=== PATIENT | male | born 1955 ===

== ENCOUNTER → 2020-03-16 08:29 | Outpatient (BNVA) | payer OTHER, SELFPAY | PROVIDERS: PCP Nurse Practitioner Family; Referring Provider Nurse Practitioner Family; Visit Provider Urology | DX: Z76.89 Persons encountering health services in other specified circumstances (principal) ==

== ENCOUNTER 2020-05-27 10:01 | Outpatient (REF) | payer MEDICARE, SELFPAY ==
[2020-05-27 11:12] LABS: MANUAL DIFF FLAG NO
[2020-05-27 11:31] LABS: Basophils Absolute Auto 0.1 X10*3/uL (0.0-0.2); Basophils Percent Auto 0.4 % (0-2); Eosinophils Absolute Auto 0.4 X10*3/uL (0.0-0.4); Eosinophils Percent Auto 3.1 % (0-4); Hematocrit 50.4 % (42-52); Hemoglobin 16.9 g/dl (14.0-18.0); Imm Gran Abs Auto 0.05 X10*3/uL (0.00-0.03); Imm Gran Pct Auto 0.4 % (0.0-0.4); Lymphocytes Absolute Auto 3.6 X10*3/uL (1.2-4.9); Lymphocytes Percent Auto 27.9 % (20-40); Mean Corpuscular HGB Conc 33.5 g/dl (31.0-36.0); Mean Corpuscular Hemoglobin 30.6 pg (27.0-33.0); Mean Corpuscular Volume 91.1 fL (80-98); Mean Platelet Volume 9.9 fL (9.4-12.4); Monocytes Absolute Auto 0.9 X10*3/uL (0.1-1.2); Monocytes Percent Auto 7.2 % (2-11); Neutrophils Absolute Auto 7.7 X10*3/uL (2.0-8.3); Platelet Count 299 X10*3/uL (160-400); Red Blood Count 5.53 X10*6/uL (4.60-5.80); Red Cell Distribution Width 12.7 % (11.0-16.0); White Blood Count 12.7 X10*3/uL (4.8-10.8)
[2020-05-27 11:53] LABS: Alanine Aminotransferase 28 U/L (0-40); Albumin Level 4.5 g/dL (3.5-5.0); Alkaline Phosphatase 81 U/L (39-117); Anion Gap 15 (12-20); Aspartate Amino Transferase 16 U/L (5-37); Bilirubin Total 0.5 mg/dL (0.0-1.0); Blood Urea Nitrogen 13 mg/dL (9-16); Calcium 9.3 mg/dL (8.4-10.2); Carbon Dioxide 25 mmol/L (22-29); Chloride 103 mmol/L (96-108); Cholesterol 207 mg/dL; Estimated Glomerular Filt Rate > 60; Glucose Fasting 93 mg/dL (60-99); HDL Cholesterol 45 mg/dL; LDL Cholesterol Calculated 130 mg/dl; Potassium 4.4 mmol/l (3.3-5.1); Sodium 139 mmol/L (135-145); Total Protein 7.6 g/dL (6.5-8.0); Triglycerides 164 mg/dL
[2020-05-27 12:08] LABS: SARS COV2 IgG Negative (Negative)
[2020-05-27 12:15] LABS: TSH reflex Free T4 2.81 mIU/mL (0.32-4.0)
== END 2020-05-27 10:02 | disposition home or self-care (01) ==
LOC: HO.HMGCLDS 10:01
PROVIDERS: PCP Internal Medicine; Visit Provider Nurse Practitioner Family
DX: R42 Dizziness and giddiness (principal); E78.5 Hyperlipidemia, unspecified; Z01.84 Encounter for antibody response examination; Z12.5 Encounter for screening for malignant neoplasm of prostate
CPT/HCPCS: 36415; 80053; 80061; 84153; 84443; 85025; 86769

== ENCOUNTER 2020-06-02 08:46 | Outpatient (REF) | payer MEDICARE, SELFPAY ==
--- NOTE | 2020-06-02 08:49 | US_ITS ---
EXAMINATION: US SOFT TISSUE OF THE NECK CLINICAL INFORMATION: Cervicalgia. COMPARISON: None TECHNIQUE: Linear transducer grayscale and color Doppler examination of the bilateral submandibular anterior neck using a linear transducer. Comparison images on the left were performed.. FINDINGS: No solid or cystic mass or adenopathy is seen. The submandibular glands are normal appearing. US/US soft tiss head and/or neck IMPRESSION: Unremarkable exam.
== END 2020-06-02 08:47 | disposition home or self-care (01) ==
LOC: HO.HMGCX 08:46
PROVIDERS: PCP Nurse Practitioner Family; Visit Provider Nurse Practitioner Family
DX: M54.2 Cervicalgia (principal)
CPT/HCPCS: 76536

== ENCOUNTER 2020-06-21 11:03 | Outpatient (REF) | payer MEDICARE, SELFPAY ==
[2020-06-21 13:46] LABS: MANUAL DIFF FLAG NO
[2020-06-21 13:53] LABS: Basophils Absolute Auto 0.1 X10*3/uL (0.0-0.2); Basophils Percent Auto 0.6 % (0-2); Eosinophils Absolute Auto 0.7 X10*3/uL (0.0-0.4); Eosinophils Percent Auto 7.6 % (0-4); Hemoglobin 16.3 g/dl (14.0-18.0); Imm Gran Abs Auto 0.03 X10*3/uL (0.00-0.03); Imm Gran Pct Auto 0.3 % (0.0-0.4); Lymphocytes Absolute Auto 3.6 X10*3/uL (1.2-4.9); Lymphocytes Percent Auto 37.6 % (20-40); Mean Corpuscular HGB Conc 33.3 g/dl (31.0-36.0); Mean Corpuscular Hemoglobin 30.9 pg (27.0-33.0); Monocytes Absolute Auto 0.5 X10*3/uL (0.1-1.2); Monocytes Percent Auto 5.4 % (2-11); Neutrophils Absolute Auto 4.6 X10*3/uL (2.0-8.3); Neutrophils Percent Auto 48.5 % (45-73); Platelet Count 280 X10*3/uL (160-400); Red Blood Count 5.27 X10*6/uL (4.60-5.80); Red Cell Distribution Width 12.7 % (11.0-16.0); White Blood Count 9.4 X10*3/uL (4.8-10.8)
== END 2020-06-21 11:04 | disposition home or self-care (01) ==
LOC: HO.HMGCLDS 11:03
PROVIDERS: PCP Nurse Practitioner Family; Visit Provider Nurse Practitioner Family
DX: D72.829 Elevated white blood cell count, unspecified (principal)
CPT/HCPCS: 36415; 85025

== ENCOUNTER 2020-10-01 10:55 | Outpatient (REF) | payer MEDICARE, SELFPAY ==
[2020-10-01 14:06] LABS: MANUAL DIFF FLAG NO
[2020-10-01 14:17] LABS: Basophils Absolute Auto 0.1 X10*3/uL (0.0-0.2); Basophils Percent Auto 0.6 % (0-2); Eosinophils Absolute Auto 0.5 X10*3/uL (0.0-0.4); Eosinophils Percent Auto 5.5 % (0-4); Hematocrit 46.9 % (42-52); Hemoglobin 15.9 g/dl (14.0-18.0); Imm Gran Abs Auto 0.02 X10*3/uL (0.00-0.03); Imm Gran Pct Auto 0.2 % (0.0-0.4); Lymphocytes Absolute Auto 3.1 X10*3/uL (1.2-4.9); Lymphocytes Percent Auto 35.5 % (20-40); Mean Corpuscular HGB Conc 33.9 g/dl (31.0-36.0); Mean Corpuscular Hemoglobin 31.7 pg (27.0-33.0); Mean Corpuscular Volume 93.6 fL (80-98); Monocytes Absolute Auto 0.7 X10*3/uL (0.1-1.2); Monocytes Percent Auto 8.1 % (2-11); Neutrophils Absolute Auto 4.4 X10*3/uL (2.0-8.3); Neutrophils Percent Auto 50.1 % (45-73); Platelet Count 274 X10*3/uL (160-400); Red Blood Count 5.01 X10*6/uL (4.60-5.80); Red Cell Distribution Width 12.8 % (11.0-16.0); White Blood Count 8.8 X10*3/uL (4.8-10.8)
[2020-10-01 14:29] LABS: Anion Gap 14 (12-20); Blood Urea Nitrogen 12 mg/dL (9-16); Carbon Dioxide 23 mmol/L (22-29); Chloride 107 mmol/L (96-108); Estimated Glomerular Filt Rate > 60; Magnesium 2.2 mg/dL (1.6-2.6); Potassium 4.4 mmol/L (3.3-5.1); Sodium 140 mmol/L (135-145)
[2020-10-01 14:51] LABS: Vitamin D 25-OH Total 36.6 ng/mL (>30)
== END 2020-10-01 10:56 | disposition home or self-care (01) ==
LOC: HO.HMGCLDS 10:55
PROVIDERS: PCP Nurse Practitioner Family; Visit Provider Internal Medicine Hypertension Specialist
DX: D35.00 Benign neoplasm of unspecified adrenal gland (principal); N28.1 Cyst of kidney, acquired; E83.52 Hypercalcemia
CPT/HCPCS: 36415; 80051; 82306; 82310; 82565; 83735; 84520; 85025

== ENCOUNTER 2020-10-02 10:32 | Outpatient (REF) | payer MEDICARE, SELFPAY ==
[2020-10-02 11:25] LABS: Glucose Urine UA NEG (NEG); Leukocyte Esterase Urine NEG (NEG); Nitrite Urine NEG (NEG); Urine Blood NEG (NEG); Urine Ketones NEG (NEG); Urine Protein NEG (NEG-TRACE)
[2020-10-02 11:27] LABS: Appearance Urine CLEAR; Color Urine YELLOW
[2020-10-02 11:38] LABS: RBC Urine 0-2 /HPF (0); Squamous Epithelial Cell Urine TRACE /LPF; WBC Urine 0-2 /HPF (0-4)
== END 2020-10-02 10:33 | disposition home or self-care (01) ==
LOC: HO.HMGCLNP 10:32
PROVIDERS: PCP Nurse Practitioner Family; Visit Provider Internal Medicine Hypertension Specialist
DX: D35.00 Benign neoplasm of unspecified adrenal gland (principal); N28.1 Cyst of kidney, acquired; E83.52 Hypercalcemia
CPT/HCPCS: 81001; 87086

== ENCOUNTER 2020-10-05 07:29 | Outpatient (REF) | payer MEDICARE, SELFPAY ==
--- NOTE | ~2020-10-05 | CT_ITS ---
EXAMINATION: CT ABDOMEN AND PELVIS WITHOUT AND WITH CONTRAST CLINICAL INFORMATION: Followup left adrenal lesion. COMPARISON: Previous CT scans most recent August 2018 going back to September 2010 and previous MRI December 2010 TECHNIQUE: Multidetector volumetric imaging was performed of the abdomen and pelvis before and after the IV administration of 85 mL of Omnipaque 350 intravenous contrast. Sagittal and coronal reformatted images were obtained on the technologist's workstation. This CT examination was performed using dose optimization techniques as appropriate, variously including the following: *Automated exposure control *Adjustment of mA and/or kV according to patient size (this includes techniques or standardized protocols for targeted exams where dose is matched to indication/reason for exam; i.e. extremities or head) *Use of iterative reconstruction technique DLP: 1797 mGy-cm FINDINGS: LUNG BASES: The visualized lung bases are unremarkable. LIVER, GALLBLADDER, AND BILIARY TREE: The liver is normal in size, shape, and attenuation. There are multiple liver cysts. The largest measures 4.5 cm involving the medial segment of the left lobe and anterior segment of the right lobe. There is mild more peripheral intrahepatic biliary duct dilatation. The gallbladder is normal-appearing. PANCREAS: Unremarkable. SPLEEN: Unremarkable. ADRENAL GLANDS: There is a heterogeneous left adrenal lesion. It is primarily low in attenuation suggestive of fat with scattered areas of high attenuation. This also has small calcifications. This measures 2.8 x 3.4 cm in transverse and AP dimension and does not appear appreciably changed in size or appearance. Overall Hounsfield units precontrast measure 4. Immediate Hounsfield units postcontrast measure 37 and delayed Hounsfield units 15 minutes after injection measure 21. Relative washout measurement is 76%. This is characteristic of an adenoma. Enhancement washout is 49% which is not characteristic of an adenoma. The right adrenal gland is normal-appearing. KIDNEYS AND URETERS: There is a 1.5 cm cyst in the left kidney. The kidneys are otherwise unremarkable. BLADDER: Unremarkable. GASTROINTESTINAL TRACT: The small and large bowel are unremarkable. The appendix is unremarkable. ABDOMINAL WALL: There is a small umbilical hernia containing fat. LYMPH NODES: Normal. VASCULAR: There is evidence of atherosclerotic disease. There is mild dilatation of the abdominal aorta measuring maximum 2.8 cm. PELVIC VISCERA: The prostate gland is slightly enlarged measuring 4.6 x 6 cm in dimension. OSSEOUS STRUCTURES: There are degenerative changes of the spine. CT/CT abdomen pelvis wo/w con IMPRESSION: Stable appearance of the left adrenal lesion from previous exams. This is heterogeneous in attenuation, primarily fatty with high attenuation areas and small calcification. Liver and left renal cysts. Enlarged prostate gland.
[2020-10-05] MEDS: iohexoL 350 MG/ML 100 ML INFUS..BTL IV (10:07)
[2020-10-05] MEDS: Barium Sulfate Oral (Mocha) 450 ML ORAL.SUSP 900 ML PO (10:08)
== END 2020-10-05 07:30 | disposition home or self-care (01) ==
LOC: HO.CT 07:29
PROVIDERS: Visit Provider Psychiatry & Neurology Neurology
DX: D35.00 Benign neoplasm of unspecified adrenal gland (principal); Z86.018 Personal history of other benign neoplasm
CPT/HCPCS: 74178; Q9967

== ENCOUNTER 2020-10-27 15:34 | Emergency (ER) | payer MEDICARE, SELFPAY ==
--- NOTE | ~2020-10-27 | CT_ITS ---
EXAMINATION: CT ANGIOGRAM NECK CLINICAL INFORMATION: Intermittent visual loss left eye. COMPARISON: CT scan of the head obtained earlier 10/27/2020. TECHNIQUE: Test bolus series followed by intravenous administration 70 mL of Omnipaque 350. Helical imaging was performed in the axial plane from the mediastinum to the skull vertex. A post contrast CT scan of the head was also obtained. The degree of stenosis is based off NASCET criteria. The data was processed at the distribution engineering technologist workstation for generation of MIP images. Three-dimensional volume rendered reformatted images were also generated at an offline 3-D workstation. This CT examination was performed using dose optimization techniques as appropriate, variously including the following: *Automated exposure control *Adjustment of mA and/or kV according to patient size (this includes techniques or standardized protocols for targeted exams where dose is matched to indication/reason for exam; i.e. extremities or head) *Use of iterative reconstruction technique DLP: 1917.29 mGy-cm. FINDINGS: CT Head: There is no evidence of acute intracranial hemorrhage or territorial infarction. No abnormal mass-effect or midline shift is seen. Davis to white matter differentiation is well preserved. No extra-axial fluid collections are identified. There is no abnormal enhancement. The ventricles are normal in size. There is no abnormal attenuation within the brain parenchyma. The osseous structures and soft tissues are normal. The mastoid air cells are well-aerated. There is mucoperiosteal thickening in the bilateral ethmoid and left maxillary sinus. There is an unerupted carious maxillary molar tooth in the left posterior maxillary region. CTA Neck: There is a classic configuration of the arch of the aorta. There are mild atheromatous calcifications of the aortic arch and at the origin of the left common carotid artery. The great vessels of the neck are patent. The subclavian arteries are patent bilaterally. The common carotid arteries are patent bilaterally. There are mild atheromatous calcifications at the carotid bifurcations bilaterally, without significant stenosis. The cervical internal carotid arteries have uniform caliber. There are mild atheromatous calcifications at the origin of the right vertebral artery. Both vertebral arteries are widely patent throughout their cervical course extending intradurally. There is minimal atheromatous calcification of the V3 segment of the left vertebral artery. They are codominant. Nonvascular: There are emphysematous changes with bullae in the lungs bilaterally. The thyroid gland is normal in size. There is a surgical clip in the superior mediastinum on the right. There is no cervical lymphadenopathy. There are moderately severe spondylitic changes in the mid and lower cervical spine with degenerative endplate contour changes and sclerosis at C4-C5, C5-C6 and C6-C7. There is foraminal narrowing particularly on the left at these levels CTA Head: There is patient motion artifact in the superior head, limiting evaluation. There are mild atheromatous calcifications of the cavernous internal carotid arteries bilaterally. The carotid termini appear normal. The middle and anterior cerebral arteries bilaterally demonstrate normal caliber with no evidence of focal stenosis, aneurysm or vascular malformation. There is normal arborization of the middle cerebral artery branches. The anterior communicating artery is normal. In the posterior circulation, the vertebral arteries are codominant. The vertebral arteries intradurally have normal caliber. The basilar artery appears normal. The posterior cerebral arteries have normal caliber. The venous sinuses opacify normally. CT/CT angio head neck IMPRESSION: CT head and neck: 1. There are no acute bleeds or infarcts. 2. There are no masses or areas of abnormal enhancement. 3. There is no cervical lymphadenopathy. There are emphysematous changes in the lungs bilaterally. CTA neck: 1. There are mild atheromatous calcifications at multiple levels as described above, but there are no flow limiting stenoses in the neck. 2. Intracranially, there are no focal stenoses, aneurysms or vascular malformations.
--- NOTE | ~2020-10-27 | CT_ITS ---
EXAMINATION: CT HEAD WITHOUT CONTRAST CLINICAL INFORMATION: Visual loss in the left side COMPARISON: None TECHNIQUE: Contiguous axial imaging was performed from the skull base to vertex without intravenous administration of contrast. This CT examination was performed using dose optimization techniques as appropriate, variously including the following: *Automated exposure control *Adjustment of mA and/or kV according to patient size (this includes techniques or standardized protocols for targeted exams where dose is matched to indication/reason for exam; i.e. extremities or head) *Use of iterative reconstruction technique DLP: 967.71 mGy-cm FINDINGS: There is no evidence of acute intracranial hemorrhage or territorial infarction. No abnormal mass effect or midline shift is seen. Davis to white matter differentiation is well preserved. No extra-axial fluid collections are identified. The ventricles are normal in size. There is no abnormal attenuation within the brain parenchyma. The osseous structures and soft tissues are normal. The mastoid air cells and visualized portions of the paranasal sinuses are well aerated. CT/CT head/brain wo con IMPRESSION: No acute intracranial pathology.
[2020-10-27 15:36] VITALS: BP 126/90; PULSE 112; RESP 18; TEMP 36.9; O2SAT 97; BMI 31.4
[2020-10-27 17:16] VITALS: BP 126/75; PULSE 73; RESP 16; O2SAT 95
--- NOTE | 2020-10-27 17:17 | ED_ITS ---
HPI - General Adult General Chief complaint: General Medical Stated complaint: STROKE Time Seen by Provider: 10/27/20 16:58 Source: patient Mode of arrival: ambulatory Limitations: no limitations History of Present Illness HPI narrative: Patient comes to emergency room complaining of visualize for 45 seconds. Patient states at 09:35, patient was driving, suddenly he had visual loss in both lower quadrants of his visual field on the left eye. Patient states that he shook his head because he has history of floaters, then it went away. Patient went to see his digital program manager today, they did a funduscopic exam bilaterally, he was told that he has no acute findings. Patient was told to come to the emergency room for further evaluation. Patient states that his digital program manager was concerned that this may be a TIA, and was informed that this may be a precursor to a stroke. At this time, patient denies any symptoms. Related Data Home Medications Medication Instructions Recorded Confirmed flu vacc [id number](65yr up)-PF 240 ml IM 03/31/20 05/27/20 mcg/0.7 mL intramuscular syringe Previous Rx's Medication Instructions Recorded cetirizine 10 mg tablet 5 mg PO DAILY 30 Days #15 tab 03/31/20 amoxicillin 875 mg-potassium 1 tab PO BID 10 Days #20 tab 05/27/20 clavulanate 125 mg tablet halobetasol propionate 0.05 % 1 appl TOPICAL BID 30 Days #50 g 05/27/20 topical cream prednisone 50 mg tablet 50 mg PO DAILY 5 Days #5 tab 05/27/20 pravastatin 20 mg tablet 20 mg PO DAILY #90 tab 08/19/20 cetirizine 10 mg tablet 10 mg PO DAILY #30 tab 10/13/20 prednisone 20 mg tablet 20 mg PO DAILY 9 Days #18 tab 10/13/20 Allergies Allergy/AdvReac Type Severity Reaction Status Date / Time Sulfa (Sulfonamide Allergy Intermediate rash Verified 10/27/20 15:35 Antibiotics) Review of Systems Review of Systems: Constitutional : No Weight loss, No Fever, No Chills, No N ight Sweats, No Fatigue, No Malaise ENT/Mouth : No Hearing loss, No Ear Pain, No Nasal Congestion, No Sinus Pain, No Hoarseness, No sore throat, No Rhinorrhea, No Swallowing Difficulty Eyes: No Eye Pain, No Swelling, No Redness, No Foreign Body, No Discharge, 1 episode of partial vision loss in the lower quadrants of the left eye, resolved within 45 seconds Cardiovascular : No Chest Pain, No SOB, No Dyspnea on Exertion, No Orthopnea, No Edema, No Palpitations Respiratory : No Cough, No Sputum, No Wheezing, No Smoke Exposure, No Dyspnea Gastrointestinal : No Nausea, No Vomiting, No Diarrhea, No Constipation, No abdominal Pain, No Hematochezia, No Melena Genitourinary : no irregular bleeding, No Dysuria, No Urinary Frequency, No Hematuria, No Urinary Incontinence, No Urgency, No Flank Pain, No Urinary Flow Changes, No Hesitancy Musculoskeletal : No joint pain, No Myalgias, No Joint Swelling Skin : No Skin Lesions, No rash Neuro : No Weakness, No Numbness, No Paresthesias, No Loss of Consciousness, No Dizziness, No Headache Psych : No Anxiety/Panic, No Depression, No SI/HI/AH/VH, No Social Issues, Heme/Lymph: No Bruising, No Bleeding,No Lymphadenopathy Endocrine : No Polyuria, No Polydipsia, No Temperature Intolerance [facility] Past Medical History Medical History High cholesterol Surgical History S/P thyroid surgery Social History Social History Alcohol intake: current Alcohol intake frequency: a few times a week Patient Tobacco Use Status: Tobacco use Unknown Use of substances other than those prescribed or required for medical reasons: No Advance Directives: No Advance Directives Information Provided: Yes Physical Exam Vital Signs: Vital Signs: Last Vital Signs Temp 98.4 F 10/27/20 15:36 Pulse 73 10/27/20 17:16 Resp 16 10/27/20 17:16 BP 126/75 10/27/20 17:16 Pulse Ox 95 10/27/20 17:16 Body Mass Index 31.4 Appearance: Alert. Oriented X3. No acute distress. Eyes: Pupils equal, round and reactive to light. Bilateral eyes are still d ilated from the drops ENT: Pharynx normal. Neck: Normal inspection. Neck supple. No lymph nodes noted. No crepitus CVS: Normal heart rate and rhythm. Pulses normal. Normal S1 and S2 Respiratory: No respiratory distress. Breath sounds normal. No Wheezing. No rales Abdomen: Soft and nontender. No rigidity. No distention. good BS x4 Skin: Skin warm and dry. Normal skin color. Normal skin turgor. Extremities: No lower extremity edema. No Lacerations. No Rash Neuro: Oriented X 3. No motor deficit. No sensory deficit. Moving all extermities. No slurred speech. Course Course Course Narrative: As I went to the patient's room to discuss the CT and CTA with the patient and to discuss admission for an MRI in the morning, I found out that the patient had eloped. Patient did not inform his nurse or charge nurse about leaving. When the patient arrived, patient was well aware that he was sent here for TIA rule out, as it is a precursor for a stroke. Medical Decision Making Lab Data Result diagrams: 10/27/20 17:33 10/27/20 17:32 Labs: Lab Results 10/27/20 10/27/20 10/27/20 Range/Units 17:32 17:32 17:33 WBC 11.0 H (4.8-10.8) X10*3/uL RBC 4.79 (4.60-5.80) X10*6/uL Hgb 15.3 (14.0-18.0) g/dl Hct 44.2 (42-52) % MCV 92.3 (80-98) fL MCH 31.9 (27.0-33.0) pg MCHC 34.6 (31.0-36.0) g/dl RDW 12.3 (11.0-16.0) % Plt Count 263 (160-400) X10*3/uL MPV 9.4 (9.4-12.4) fL Immature Gran % (Auto) 0.4 (0.0-0.4) % Neut % (Auto) 57.3 (45-73) % Lymph % (Auto) 29.0 (20-40) % [place] % (Auto) 9.1 (2-11) % Eos % (Auto) 3.8 (0-4) % Baso % (Auto) 0.4 (0-2) % Lymph # (Auto) 3.2 (1.2-4.9) X10*3/uL [place] # (Auto) 1.0 (0.1-1.2) X10*3/uL Eos # (Auto) 0.4 (0.0-0.4) X10*3/uL Baso # (Auto) 0.0 (0.0-0.2) X10*3/uL Abs Immat Gran (auto) 0.04 H (0.00-0.03) X10*3/uL Absolute Neuts (auto) 6.3 (2.0-8.3) X10*3/uL Absolute Nucleated RBC 0.000 (0.0-0.012) X10*3/uL Nucleated RBC % (auto) 0.0 (0.0-0.2) /100WBC ESR 31 H (0-15) MM/HR Sodium 138 (135-145) mmol/L Potassium 4.5 (3.3-5.1) mmol/L Chloride 106 (96-108) mmol/L Carbon Dioxide 22 (22-29) mmol/L Anion Gap 15 (12-20) BUN 14 (9-16) mg/dL Creatinine 0.75 (0.5-1.4) mg/dL Estim Creat Clear Calc 116.3 Estimated GFR > 60 Random Glucose 80 (60-115) mg/dL Calcium 9.1 (8.4-10.2) mg/dL Total Bilirubin 0.5 (0.0-1.0) mg/dL Direct Bilirubin < 0.2 (0.0-0.5) mg/dL AST 22 (5-37) U/L ALT 21 (0-40) U/L Alkaline Phosphatase 77 (39-117) U/L C-Reactive Protein 1.24 H (< or = 0.50) mg/dL Total Protein 7.1 (6.5-8.0) g/dL Albumin 4.1 (3.5-5.0) g/dL Imaging Data Head and neck CTA: Radiologist's impression: COMPARISON: CT scan of the head obtained earlier 10/27/2020. TECHNIQUE: Test bolus series followed by intravenous administration 70 mL of Omnipaque 350. Helical imaging was performed in the axial plane from the mediastinum to the skull vertex. A post contrast CT scan of the head was also obtained. The degree of stenosis is based off NASCET criteria. The data was processed at the electrical design technologist workstation for generation of MIP images. Three-dimensional volume rendered reformatted images were also generated at an offline 3-D workstation. This CT examination was performed using dose optimization techniques as appropriate, variously including the following: *Automated exposure control *Adjustment of mA and/or kV according to patient size (this includes techniques or standardized protocols for targeted exams where dose is matched to indication/reason for exam; i.e. extremities or head) *Use of iterative reconstruction technique DLP: 1917.29 mGy-cm. FINDINGS: CT Head: There is no evidence of acute intracranial hemorrhage or territorial infarction. No abnormal mass-effect or midline shift is seen. Davis to white matter differentiation is well preserved. No extra-axial fluid collections are identified. There is no abnormal enhancement. The ventricles are normal in size. There is no abnormal attenuation within the brain parenchyma. The osseous structures and soft tissues are normal. The mastoid air cells are well-aerated. There is mucoperiosteal thickening in the bilateral ethmoid and left maxillary sinus. There is an unerupted carious maxillary molar tooth in the left posterior maxillary region. CTA Neck: There is a classic configuration of the arch of the aorta. There are mild atheromatous calcifications of the aortic arch and at the origin of the left common carotid artery. The great vessels of the neck are patent. The subclavian arteries are patent bilaterally. The common carotid arteries are patent bilaterally. There are mild atheromatous calcifications at the carotid bifurcations bilaterally, without significant stenosis. The cervical internal carotid arteries have uniform caliber. There are mild atheromatous calcifications at the origin of the right vertebral artery. Both vertebral arteries are widely patent throughout their cervical course extending intradurally. There is minimal atheromatous calcification of the V3 segment of the left vertebral artery. They are codominant. Nonvascular: There are emphysematous changes with bullae in the lungs bilaterally. The thyroid gland is normal in size. There is a surgical clip in the superior mediastinum on the right. There is no cervical lymphadenopathy. There are moderately severe spondylitic changes in the mid and lower cervical spine with degenerative endplate contour changes and sclerosis at C4-C5, C5-C6 and C6-C7. There is foraminal narrowing particularly on the left at these levels CTA Head: There is patient motion artifact in the superior head, limiting evaluation. There are mild atheromatous calcifications of the cavernous internal carotid arteries bilaterally. The carotid termini appear normal. The middle and anterior cerebral arteries bilaterally demonstrate normal caliber with no evidence of focal stenosis, aneurysm or vascular malformation. There is normal arborization of the middle cerebral artery branches. The anterior communicating artery is normal. In the posterior circulation, the vertebral arteries are codominant. The vertebral arteries intradurally have normal caliber. The basilar artery appears normal. The posterior cerebral arteries have normal caliber. The venous sinuses opacify normally. CT/CT angio head neck IMPRESSION: CT head and neck: 1. There are no acute bleeds or infarcts. 2. There are no masses or areas of abnormal enhancement. 3. There is no cervical lymphadenopathy. There are emphysematous changes in the lungs bilaterally. CTA neck: 1. There are mild atheromatous calcifications at multiple levels as described above, but there are no flow limiting stenoses in the neck. 2. Intracranially, there are no focal stenoses, aneurysms or vascular malformations. ECG Data Attestation: I personally reviewed and interpreted this ECG as follows: (Normal sinus rhythm, heart rate 68, no ST segment depression or elevation, nonspecific T-wave inversion in lead 3, QTC 412) Discharge Plan Discharge Clinical Impression: AF (amaurosis fugax), Brain TIA Patient Disposition: Elopement Prescriptions: No Action pravastatin 20 mg tablet 20 mg PO DAILY Qty: 90 RF: 1 Fluzone HighDose Quad 20-21 PF 240 mcg/0.7 mL syringe IM RF: 0 cetirizine [Zyrtec] 10 mg tablet 5 mg PO DAILY 30 Days Qty: 15 RF: 0 prednisone 20 mg tablet 20 mg PO DAILY 9 Days Qty: 18 RF: 0 cetirizine [Allergy Relief (cetirizine)] 10 mg tablet 10 mg PO DAILY Qty: 30 RF: 0 prednisone 50 mg tablet 50 mg PO DAILY 5 Days Qty: 5 RF: 0 amoxicillin-pot clavulanate [Augmentin] 875-125 mg tablet 1 tab PO BID 10 Days Qty: 20 RF: 0 halobetasol propionate 0.05 % cream 1 appl topical BID 30 Days Qty: 50 RF: 2 Interventions: ED Discharge Assessment Last Done: 10/27/20 20:56 Discharge Date/Time: 10/27/20 21:00
--- NOTE | 2020-10-27 17:20 | ECG_ITS ---
Test Reason : TIA Blood Pressure : / mmHG Vent. Rate : 068 BPM Atrial Rate : 068 BPM P-R Int : 182 ms QRS Dur : 088 ms QT Int : 388 ms P-R-T Axes : 038 018 024 degrees QTc Int : 412 ms Normal sinus rhythm Cannot rule out inferior infarct Abnormal ECG No previous ECGs available Referred By: Angelique Young Electronically Signed By:Harjeet Bloom
[2020-10-27 17:40] LABS: MANUAL DIFF FLAG NO
[2020-10-27 17:41] LABS: Basophils Percent Auto 0.4 % (0-2); Eosinophils Absolute Auto 0.4 X10*3/uL (0.0-0.4); Eosinophils Percent Auto 3.8 % (0-4); Hematocrit 44.2 % (42-52); Hemoglobin 15.3 g/dl (14.0-18.0); Imm Gran Abs Auto 0.04 X10*3/uL (0.00-0.03); Imm Gran Pct Auto 0.4 % (0.0-0.4); Lymphocytes Absolute Auto 3.2 X10*3/uL (1.2-4.9); Mean Corpuscular HGB Conc 34.6 g/dl (31.0-36.0); Mean Corpuscular Hemoglobin 31.9 pg (27.0-33.0); Mean Corpuscular Volume 92.3 fL (80-98); Mean Platelet Volume 9.4 fL (9.4-12.4); Monocytes Percent Auto 9.1 % (2-11); Neutrophils Absolute Auto 6.3 X10*3/uL (2.0-8.3); Neutrophils Percent Auto 57.3 % (45-73); Platelet Count 263 X10*3/uL (160-400); Red Blood Count 4.79 X10*6/uL (4.60-5.80); Red Cell Distribution Width 12.3 % (11.0-16.0)
[2020-10-27 18:17] LABS: Alanine Aminotransferase 21 U/L (0-40); Albumin Level 4.1 g/dL (3.5-5.0); Alkaline Phosphatase 77 U/L (39-117); Anion Gap 15 (12-20); Aspartate Amino Transferase 22 U/L (5-37); Bilirubin Direct < 0.2 mg/dL (0.0-0.5); Bilirubin Total 0.5 mg/dL (0.0-1.0); Blood Urea Nitrogen 14 mg/dL (9-16); C Reactive Protein 1.24 mg/dL (< or = 0.50); Calcium 9.1 mg/dL (8.4-10.2); Carbon Dioxide 22 mmol/L (22-29); Chloride 106 mmol/L (96-108); Creatinine Clr Calc Pharmacy 116.3; Estimated Glomerular Filt Rate > 60; Glucose Random 80 mg/dL (60-115); Potassium 4.5 mmol/L (3.3-5.1); Sodium 138 mmol/L (135-145); Total Protein 7.1 g/dL (6.5-8.0)
[2020-10-27 18:44] LABS: Erythrocyte Sedimentation Rate 31 MM/HR (0-15)
[2020-10-27] MEDS: iohexoL 350 MG/ML 100 ML INFUS..BTL IV (19:30)
--- NOTE | 2020-10-27 20:53 | PC.NURSE ---
WHEN THIS NURSE RETURNS TO ROOM #15, PT IS NOT IN ROOM AND GOWN AND IV LEFT ON STRETCHER WITH NO BELONGINGS. DR. LAINEZ'S AWARE OF PT LEAVING ED.
== END 2020-10-27 21:00 | disposition left against medical advice (07) ==
PROVIDERS: Emergency Provider Emergency Medicine; PCP Nurse Practitioner Family
DX: G45.9 Transient cerebral ischemic attack, unspecified (principal); G45.3 Amaurosis fugax
CPT/HCPCS: 36415; 70450; 70496; 70498; 80048; 80076; 85025; 85652; 86140; 93005; 99284; Q9967

== ENCOUNTER → 2021-01-11 09:50 | Outpatient (BNVA) | payer SELFPAY | PROVIDERS: PCP Nurse Practitioner Family; Visit Provider Physician Assistant | DX: Z02.79 Encounter for issue of other medical certificate (principal) ==

== ENCOUNTER → 2021-01-14 09:25 | Outpatient (REF) | payer MEDICARE, SELFPAY ==
--- NOTE | 2021-01-14 09:29 | CA_ITS ---
Transthoracic Echocardiogram Patient (Last, First, Middle): Leif Kramer A Gender: Male Date of : 1955 Age: 66 Procedure Date: 01/14/2021 Procedure Type: Transthoracic Echocardiogram Location: OP Height: 180.34 cm Weight: 103.42 kg BSA: 2.23 m2 Heart Rate: bpm BP: 128 / 80 mmHg Senior Auditor: Referring MD: Everardo Rasmussen [facility] Symptoms: R01.1 - Cardiac murmur, unspecified Study Quality: Fair ECG Rhythm: Sinus Conclusions: - The left ventricular systolic function is normal. The visually estimated ejection fraction is between 60-65%. - Evidence suggests grade I (mild) diastolic dysfunction. - There is mild calcification of the aortic valve. Findings Left Ventricle Normal left ventricular cavity size. There is mildly increased left ventricular wall thickness. The left ventricular systolic function is normal. The visually estimated ejection fraction is between 60-65%. There is no evidence of regional wall motion abnormalities. E/E prime ratio is between 8 and 15 consistent with indeterminate filling pressures. Evidence suggests grade I (mild) diastolic dysfunction. Right Ventricle Mildly increased right ventricular cavity size. There is normal right ventricular systolic function. Atria Both atria are normal in size. Aortic Valve There is a normal trileaflet aortic valve. There is mild calcification of the aortic valve. There is no aortic valve stenosis. There is no aortic valve regurgitation. Mitral Valve The mitral valve appears normal. There is trace mitral valve regurgitation. There is no mitral valve stenosis. Pulmonic Valve The pulmonic valve was not well visualized. Tricuspid Valve There is trace tricuspid valve regurgitation. The pulmonary artery systolic pressure is normal. Great Vessels Top normal ascending aortic size at 3.7 cm; Sinus of Valsalva measures 4.2 cm. Venous The inferior vena cava is normal in size and collapses greater than 50% with inspiration. Pericardium/Pleural There is no evidence of pericardial effusion. Prior Study Comparison Changes noted compared to prior study dated: 08/26/2018. See comments on diastolic function and aortic valve calcification. Measurements 2D Linear Measurements IVSd: 1.27 0.6-0.9/0.6-1.0 cm LVIDd: 4.36 3.9-5.3/4.2-5.9 cm LVIDd Index: 1.96 2.4-3.2/2.2-3.1 cm/m2 LVIDs: 2.83 2.0-3.6 cm LVPWd: 1.22 0.7-1.1 cm Ao Root: 4.20 2.1-3.5 cm LA Diam: 3.50 2.7-3.8/3.0-4.0 cm LAIDs Index: 1.57 1.5-2.3 cm/m2 LV Mass: 248.08 67-162/88-224 g LV Mass Index: 111.25 43-95/49-115 g/m2 LVOT Diam: 2.30 3.0+(-)1.3 cm Mitral Valve MV Pk E: 0.51 MV PK A: 0.62 MV Decel Time: 287.00 E/A: 0.80 E'Lateral: 6.85 E'Medial: 4.46 E/E' Med: 11.30 E/E' Lat: 7.40 PHT: 84.00 MVA PHT: 2.62 Decel Burnet: 1.76 Aortic Valve AoV Pk Sanjeev: 1.55 AoV Mn Sanjeev: 1.06 AoV VTI: 0.26 AoV Pk Grad: 10.00 Aov Mn Grad: 5.00 ABHISHEK Cont.VTI: 2.76 LVOT LVOT Pk Sanjeev: 0.88 LVOT Mn Sanjeev: 0.64 LVOT VTI: 0.17 LVOT Pk Grad: 3.00 LVOT Mn Grad: 2.00 LVOT Diam: 2.30 LVOT Area: 4.15 Diastolic Function MV Pk E: 0.51 MV Pk A: 0.62 E/A: 0.80 E'Medial: 4.46 E/E' Med: 11.30 E' Laterial: 6.85 E/E' Lat: 7.40 Right Ventricle TAPSE (mm): 29.00 TVS' Sanjeev: 13.00 Tricuspid Valve TR Pk Sanjeev: 2.04 TR Pk Grad: 17.00 RA Press: 3.00 RVSP: 20.00 Great Vessels Aorta Ao Root-2D: 4.20 2.0-3.7 cm Ao Asc: 3.70 2.1-3.4 cm Pulmonary Valve PV Pk Sanjeev: 0.91 Peak PV Grad: 3.00 Updated in Other Vendor System with Status of Final Nawaf Krishnamurthy MD electronically signed on 01/16/2021 12:40:59 PM with status of Final
== END ==
LOC: HO.CARD 09:25
PROVIDERS: PCP Nurse Practitioner Family; Visit Provider Nurse Practitioner Family
DX: R01.1 Cardiac murmur, unspecified (principal)
CPT/HCPCS: 93306

== ENCOUNTER → 2021-03-17 09:23 | Outpatient (BNVA) | payer MEDICARE, SELFPAY | PROVIDERS: Visit Provider Urology | DX: Z13.89 Encounter for screening for other disorder (principal) | CPT/HCPCS: Q3014 ==

== ENCOUNTER 2021-06-06 06:23 | Outpatient (REF) | payer MEDICARE, SELFPAY ==
[2021-06-06 11:38] LABS: Appearance Urine CLEAR; Color Urine YELLOW; Glucose Urine UA NEG (NEG); Leukocyte Esterase Urine NEG (NEG); Nitrite Urine NEG (NEG); PH 5.5 (5.0-8.0); Urine Blood NEG (NEG); Urine Ketones NEG (NEG); Urine Protein NEG (NEG-TRACE)
[2021-06-06 12:16] LABS: Alanine Aminotransferase 21 U/L (0-40); Albumin Level 4.2 g/dL (3.5-5.0); Alkaline Phosphatase 76 U/L (39-117); Anion Gap 12 (12-20); Aspartate Amino Transferase 16 U/L (5-37); Bilirubin Total 0.5 mg/dL (0.0-1.0); Blood Urea Nitrogen 11 mg/dL (9-16); Calcium 8.8 mg/dL (8.4-10.2); Carbon Dioxide 25 mmol/L (22-29); Chloride 108 mmol/L (96-108); Cholesterol 183 mg/dL; Estimated Glomerular Filt Rate > 60; Glucose Fasting 95 mg/dL (60-99); HDL Cholesterol 41 mg/dL; LDL Cholesterol Calculated 114 mg/dl; Potassium 4.3 mmol/L (3.3-5.1); Sodium 141 mmol/L (135-145); Total Protein 7.1 g/dL (6.5-8.0); Triglycerides 144 mg/dL
[2021-06-06 12:21] LABS: TSH reflex Free T4 3.17 uIU/mL (0.32-4.0)
[2021-06-06 12:22] LABS: Prostate Specific Antigen Scr 4.41 ng/mL (<0.05-4.0)
== END 2021-06-06 06:24 | disposition home or self-care (01) ==
LOC: HO.HMGCLDS 06:23
PROVIDERS: Visit Provider Nurse Practitioner Family
DX: Z12.5 Encounter for screening for malignant neoplasm of prostate (principal); E78.5 Hyperlipidemia, unspecified
CPT/HCPCS: 36415; 80053; 80061; 81003; 84153; 84443

== ENCOUNTER 2021-06-06 08:28 | Outpatient (REF) | payer MEDICARE, SELFPAY | END 2021-06-06 08:29 | disposition home or self-care (01) | LOC: HO.HMGCLNP 08:28 | PROVIDERS: PCP Nurse Practitioner Family; Visit Provider Nurse Practitioner Family | DX: Z13.89 Encounter for screening for other disorder (principal) ==

== ENCOUNTER 2021-07-29 13:27 | Outpatient (REF) | payer MEDICARE, SELFPAY ==
--- NOTE | ~2021-07-29 | CT_ITS ---
EXAMINATION: CT CHEST SCREENING CLINICAL INFORMATION: Nicotine dependence. COMPARISON: None TECHNIQUE: Multidetector volumetric CT imaging of the chest is performed without contrast using low dose technique. Additional 2D coronal and sagittal reformatted images and axial 3D maximum intensity projection (MIP) images are generated on the CT workstation. This CT examination was performed using dose optimization techniques as appropriate, variously including the following: *Automated exposure control *Adjustment of mA and/or kV according to patient size (this includes techniques or standardized protocols for targeted exams where dose is matched to indication/reason for exam; i.e. extremities or head) *Use of iterative reconstruction technique DLP: 319 mGy-cm FINDINGS: LUNGS: The lungs are well expanded and clear of acute pneumonic process. There are no pulmonary nodules, mass or consolidation. There are minimal atelectatic changes in the right middle lobe and left lower lobe. MEDIASTINUM: Both thyroid lobes are symmetric and normal. The central trachea and the bronchi are widely patent. The heart size and the great vessels are normal caliber. There are small shotty lymph nodes in the aortic window and para-aortic space. There is no pericardial effusion. There are coronary artery calcifications in the pericardium. PLEURA: There is no pleural effusion. No pleural mass or thickening. AXILLA: No abnormal lymph nodes in the axilla. The chest wall is unremarkable. UPPER ABDOMEN: The liver is homogeneous in density and normal size. There is 4.4 cm hypodensity right hepatic lobe. No additional lesion seen. There is a 3 cm lesion left adrenal gland measuring 20 Hounsfield units. Likely adenoma. OSSEOUS STRUCTURES: There is moderate spondylosis dorsal and lumbar spine. No lytic or sclerotic process seen. CT/CT lung screening IMPRESSION: Minimal atelectatic changes. No pulmonary nodule or mass. Reactive mediastinal lymph nodes largest measuring 7 mm in short axis. Most likely left adrenal adenoma. Right hepatic lobe cyst. ASSESSMENT: Lung-RADS category 2: Benign. S CATEGORY: Left adrenal adenoma likely. Suggest adrenal protocol. Right hepatic cyst. RECOMMENDATION: Low-dose annual CT chest.
== END 2021-07-29 13:28 | disposition home or self-care (01) ==
LOC: HO.CT 13:27
PROVIDERS: PCP Nurse Practitioner Family; Visit Provider Physician Assistant Medical
DX: Z12.2 Encounter for screening for malignant neoplasm of respiratory organs (principal); F17.210 Nicotine dependence, cigarettes, uncomplicated
CPT/HCPCS: 71271; G0296

== ENCOUNTER → 2021-08-23 08:24 | Outpatient (BNVA) | payer MEDICARE, SELFPAY | PROVIDERS: PCP Nurse Practitioner Family; Visit Provider Urology | DX: N32.0 Bladder-neck obstruction (principal) | CPT/HCPCS: Q3014 ==

== ENCOUNTER 2021-12-19 12:03 | Outpatient (REF) | payer MEDICARE, SELFPAY ==
[2021-12-19 14:33] LABS: PSA,Total (Free>4and<10) 5.45 ng/mL (0.00-4.00)
[2021-12-21 09:33] LABS: Free Prostate Spec Ag 1.1 ng/mL; Percent Free Prostate Spec Ag 21 % (calc) (>25); Prostate Specific Ag Total 5.3 ng/mL (< OR = 4.0)
== END 2021-12-19 12:04 | disposition home or self-care (01) ==
LOC: HO.HMGCLDS 12:03
PROVIDERS: Visit Provider Urology
DX: N40.1 Benign prostatic hyperplasia with lower urinary tract symptoms (principal); N13.8 Other obstructive and reflux uropathy; Z12.5 Encounter for screening for malignant neoplasm of prostate
CPT/HCPCS: 36415; 84153; 84154

== ENCOUNTER → 2021-12-27 11:01 | Outpatient (BNVA) | payer MEDICARE, SELFPAY | PROVIDERS: PCP Nurse Practitioner Family; Visit Provider Urology | DX: R97.20 Elevated prostate specific antigen [PSA] (principal); N32.0 Bladder-neck obstruction | CPT/HCPCS: Q3014 ==

== ENCOUNTER 2022-02-06 06:25 | Outpatient (REF) | payer MEDICARE, SELFPAY ==
[2022-02-06 11:16] LABS: MANUAL DIFF FLAG NO
[2022-02-06 11:35] LABS: Basophils Absolute Auto 0.1 X10*3/uL (0.0-0.2); Eosinophils Absolute Auto 0.5 X10*3/uL (0.0-0.4); Eosinophils Percent Auto 7.9 % (0-4); Hematocrit 46.7 % (42.0-52.0); Hemoglobin 15.8 g/dl (14.0-18.0); Imm Gran Abs Auto 0.02 X10*3/uL (0.00-0.03); Imm Gran Pct Auto 0.3 % (0.0-0.4); Lymphocytes Absolute Auto 2.8 X10*3/uL (1.2-4.9); Lymphocytes Percent Auto 40.3 % (20-40); Mean Corpuscular HGB Conc 33.8 g/dl (31.0-36.0); Mean Corpuscular Hemoglobin 31.2 pg (27.0-33.0); Mean Corpuscular Volume 92.3 fL (80.0-98.0); Mean Platelet Volume 9.8 fL (9.4-12.4); Monocytes Absolute Auto 0.6 X10*3/uL (0.1-1.2); Monocytes Percent Auto 8.6 % (2-11); Neutrophils Absolute Auto 2.9 x10*3/uL (2.0-8.3); Neutrophils Percent Auto 41.9 % (45-73); Platelet Count 251 X10*3/uL (160-400); Red Blood Count 5.06 X10*6/uL (4.60-5.80); Red Cell Distribution Width 12.9 % (11.0-16.0); White Blood Count 6.8 X10*3/uL (4.8-10.8)
[2022-02-06 11:49] LABS: Alanine Aminotransferase 18 U/L (0-40); Alkaline Phosphatase 70 U/L (39-117); Anion Gap 14 (12-20); Aspartate Amino Transferase 14 U/L (5-37); Bilirubin Total 0.3 mg/dL (0.0-1.0); Blood Urea Nitrogen 11 mg/dL (9-16); Calcium 8.4 mg/dL (8.4-10.2); Carbon Dioxide 22 mmol/L (22-29); Chloride 106 mmol/L (96-108); Cholesterol 188 mg/dL; Estimated Glomerular Filt Rate > 60; Glucose Fasting 101 mg/dL (60-99); HDL Cholesterol 43 mg/dL; LDL Cholesterol Calculated 120 mg/dl; Potassium 4.4 mmol/L (3.3-5.1); Sodium 138 mmol/L (135-145); Total Protein 6.6 g/dL (6.5-8.0); Triglycerides 128 mg/dL
[2022-02-06 12:13] LABS: TSH reflex Free T4 2.82 uIU/mL (0.32-4.0)
== END 2022-02-06 06:26 | disposition home or self-care (01) ==
LOC: HO.HMGCLDS 06:25
PROVIDERS: PCP Nurse Practitioner Family; Visit Provider Nurse Practitioner Family
DX: K40.90 Unilateral inguinal hernia, without obstruction or gangrene, not specified as recurrent (principal)
CPT/HCPCS: 36415; 80053; 80061; 84443; 85025

== ENCOUNTER 2022-02-07 11:40 | Outpatient (REF) | payer MEDICARE, SELFPAY ==
[2022-02-07 11:55] VITALS: BP 114/69; PULSE 96; RESP 16; TEMP 36.9; O2SAT 97; BMI 30.8
--- NOTE | 2022-02-07 12:56 | W.PM.OPN ---
Operative Note Operative Note Date of Service: 02/07/22 Narrative: Preoperative diagnosis: Elevated PSA Postoperative diagnosis: Elevated PSA Procedure: 1. transrectal ultrasound measurement of prostate 2. transrectal ultrasound-guided pudendal nerve block 3. transrectal ultrasound-guided prostate biopsy 12 core Surgeon: Dr. Fernando Barlow Anesthetic: Local Indications for procedure: Elevated PSA 5.5 Procedure: After informed consent was verified, the patient was brought into the procedure area and lay left-hand side down on the table. Patient identity confirmed. Perioperative antibiotics confirmed. Safety pause time out performed. JOE performed to dilate rectal sphincter - no palpable pathology Iodine 10cc with Gel was placed per rectum Ultrasound probe was placed per rectum The prostate was measured in 3 dimensions Total volume equals 30 gm No cystic structures were noted - calcifications were noted at the surgical margin The prostate was otherwise heterogenous in nature - small anterior right cyst An ultrasound-guided pudendal nerve block was performed using 10 cc of 1% lidocaine. 8 cc was placed at the base and 2 cc of the apex. A 12 core biopsy was performed with 6 cores each side. Two cores were taken at the apex, mid and base. Cores were spaced between lateral and medial. He tolerated the procedure well. Was able to ambulate to bathroom after 5 minutes. Printed instructions regarding antibiotic use and common side effects such as low-grade temperature, potential infection and bleeding were given Pathology: 12 core prostate biopsy.
[2022-02-07 13:05] VITALS: BP 111/72; PULSE 92; RESP 16; O2SAT 97
== END 2022-02-07 11:41 | disposition home or self-care (01) ==
LOC: HO.MS 11:40
PROVIDERS: Visit Provider Urology
PROC: (CPT 55700; principal; 2022-02-07 12:00)
DX: C61 Malignant neoplasm of prostate (principal); R97.20 Elevated prostate specific antigen [PSA]
CPT/HCPCS: 55700; 76942; 88305; 88344

== ENCOUNTER → 2022-02-28 11:29 | Outpatient (BNVA) | payer MEDICARE, SELFPAY | PROVIDERS: Visit Provider Urology | DX: C61 Malignant neoplasm of prostate (principal) | CPT/HCPCS: Q3014 ==

== ENCOUNTER 2022-03-24 10:42 | Outpatient (REF) | payer MEDICARE, SELFPAY ==
--- NOTE | ~2022-03-24 | US_ITS ---
EXAMINATION: US LEFT, LIMITED/FOLLOW UP CLINICAL INFORMATION: Rule out left inguinal hernia, history of prostate cancer. COMPARISON: CT abdomen and pelvis 10/05/2020. TECHNIQUE: Ultrasound images soft tissues left inguinal region. FINDINGS: Targeted ultrasound images were obtained by the continuous mining machine operator of the area of concern as indicated by the patient in the left inguinal region. No discrete left internal hernia identified. Multiple reniform masses characteristic of lymph nodes identified in the left inguinal region, the largest 2.5 x 0.8 x 1.8 cm. Radiologist was not in attendance. Images were later provided for interpretation. US/US pelvic limited IMPRESSION: 1. No discrete left inguinal hernia identified. 2. Multiple left inguinal lymph nodes, largest 2.5 x 0.8 x 1.8 cm with echogenic hilum. Decisions regarding further management including imaging with CT scan should be based on the clinical assessment.
== END 2022-03-24 10:43 | disposition home or self-care (01) ==
LOC: HO.US 10:42
PROVIDERS: Visit Provider Nurse Practitioner Family
DX: K40.90 Unilateral inguinal hernia, without obstruction or gangrene, not specified as recurrent (principal)
CPT/HCPCS: 76857

== ENCOUNTER → 2022-03-27 07:20 | Outpatient (BNVA) | payer MEDICARE, SELFPAY | PROVIDERS: PCP Nurse Practitioner Family; Visit Provider Internal Medicine | DX: D35.02 Benign neoplasm of left adrenal gland (principal); E55.9 Vitamin D deficiency, unspecified; Z86.39 Personal history of other endocrine, nutritional and metabolic disease | CPT/HCPCS: 99212 ==

== ENCOUNTER 2022-03-28 08:26 | Outpatient (REF) | payer MEDICARE, SELFPAY ==
[2022-03-28 10:00] LABS: Cortisol Random 9.1 ug/dL
[2022-03-28 10:01] LABS: Alanine Aminotransferase 18 U/L (0-40); Alkaline Phosphatase 68 U/L (39-117); Anion Gap 12 (12-20); Aspartate Amino Transferase 13 U/L (5-37); Bilirubin Total 0.5 mg/dL (0.0-1.0); Blood Urea Nitrogen 16 mg/dL (9-16); Calcium 8.7 mg/dL (8.4-10.2); Carbon Dioxide 26 mmol/L (22-29); Chloride 105 mmol/L (96-108); Estimated Glomerular Filt Rate > 60; Glucose Random 100 mg/dL (60-115); Phosphorus 2.7 mg/dL (2.7-4.5); Potassium 4.6 mmol/L (3.3-5.1); Sodium 138 mmol/L (135-145); Total Protein 6.9 g/dL (6.5-8.0); Vitamin D 25-OH Total 33.2 ng/mL (>30)
[2022-03-29 13:55] LABS: Adrenocorticotropic Hormone 15 pg/mL (6-50)
[2022-03-29 20:26] LABS: DHEA Sulfate 63 mcg/dL (20-217)
[2022-04-02 13:56] LABS: Metanephrine, Free 37 pg/mL (<=57); Normetanephrines, Free 151 pg/mL (<=148); Total Metanephrine, Free 188 pg/mL (<=205)
[2022-04-03 11:31] LABS: Catecholamine Frac, Total 965 pg/mL
[2022-04-04 06:22] LABS: Renin 3.47 ng/mL/h (0.25-5.82)
== END 2022-03-28 08:27 | disposition home or self-care (01) ==
LOC: HO.LAB 08:26
PROVIDERS: PCP Nurse Practitioner Family; Visit Provider Internal Medicine
DX: D35.00 Benign neoplasm of unspecified adrenal gland (principal); E55.9 Vitamin D deficiency, unspecified
CPT/HCPCS: 36415; 80053; 82024; 82088; 82306; 82384; 82533; 82627; 83835; 84100; 84244

== ENCOUNTER 2022-04-04 08:55 | Outpatient (REF) | payer MEDICARE, SELFPAY ==
[2022-04-04 15:07] LABS: Creatinine, 24Hr Urine 1.7 G/Day (1.0-2.0); Total Volume 24 Hour Urine 2750 mL
[2022-04-06 17:02] LABS: Calcium, 24 Hr Urine 316 mg/24 h; Calcium/Creatinine Ratio 185 mg/g creat (30-210); Creatinine 24Hr Urine 1.71 g/24 h (0.50-2.15)
[2022-04-10 11:43] LABS: CATF, 24 Ur Volume 2750 mL; CATF-24Ur Creatinine 1.61 g/24 h (0.50-2.15); Catecholamines,Tot. (E+NE) 24U 43 mcg/24 h (26-121); Dopamine, 24 Ur 143 mcg/24 h (52-480); Norepinephrine, 24 Ur 43 mcg/24 h (15-100)
[2022-04-10 12:58] LABS: Metanephrine, Free 24U 112 mcg/24 h (90-315); Normetanephrine, Free 24U 512 mcg/24 h (122-676); Total Metanephrine, Free 24U 624 mcg/24 h (224-832); Total Volume 24U 2750 mL
[2022-04-12 16:04] LABS: Cortisol Free, 24 Hr Urine 29.5 mcg/24 h (4.0-50.0); Total Volume, 24 Hr Urine 2750 mL
[2022-04-15 23:38] LABS: Aldosterone, 24Hr Urine 11.6 mcg/24 h; Creatinine 24Hr Urine 1.67 g/24 h (0.50-2.15); Total Volume 2750 mL
== END 2022-04-04 08:56 | disposition home or self-care (01) ==
LOC: HO.HMGCLDS 08:55
PROVIDERS: Absent Provider Nurse Practitioner Family; PCP Nurse Practitioner Family; Visit Provider Internal Medicine
DX: D35.00 Benign neoplasm of unspecified adrenal gland (principal)
CPT/HCPCS: 36415; 82088; 82340; 82384; 82530; 82570; 83835

== ENCOUNTER → 2022-04-21 13:02 | Outpatient (BNVA) | payer MEDICARE, SELFPAY | PROVIDERS: PCP Nurse Practitioner Family; Visit Provider Urology | DX: C61 Malignant neoplasm of prostate (principal) | CPT/HCPCS: 99212 ==

== ENCOUNTER 2022-04-26 07:53 | Outpatient (REF) | payer MEDICARE, SELFPAY ==
[2022-04-26] MEDS: iohexoL 350 MG/ML 100 ML INFUS..BTL IV (09:24)
== END 2022-04-26 07:54 | disposition home or self-care (01) ==
LOC: HO.CT 07:53
PROVIDERS: Visit Provider Internal Medicine
DX: R59.0 Localized enlarged lymph nodes (principal)
CPT/HCPCS: 74178; Q9967

== ENCOUNTER → 2022-05-31 08:20 | Outpatient (BNVA) | payer MEDICARE, SELFPAY | PROVIDERS: PCP Nurse Practitioner Family; Visit Provider Internal Medicine | DX: K76.89 Other specified diseases of liver (principal); K21.9 Gastro-esophageal reflux disease without esophagitis; K44.9 Diaphragmatic hernia without obstruction or gangrene; T78.3XXA Angioneurotic edema, initial encounter; I71.40 Abdominal aortic aneurysm, without rupture, unspecified; E21.3 Hyperparathyroidism, unspecified; E89.0 Postprocedural hypothyroidism | CPT/HCPCS: 99202 ==

== ENCOUNTER 2022-06-27 10:27 | Outpatient (REF) | payer MEDICARE, SELFPAY ==
[2022-06-27 11:25] LABS: INTERNATIONAL NORM RATIO 1.1 (0.9-1.1); Prothrombin Time 12.3 SEC (10.0-13.1)
[2022-06-27 11:59] LABS: Prostate Specific Antigen 5.05 ng/mL (<0.05-4.0)
[2022-06-30 04:34] LABS: C1 Esterase Inhibitor >100 % (>=68)
== END 2022-06-27 10:28 | disposition home or self-care (01) ==
LOC: HO.HMGCLDS 10:27
PROVIDERS: Absent Provider Urology; PCP Nurse Practitioner Family; Visit Provider Internal Medicine
DX: C61 Malignant neoplasm of prostate (principal); K76.89 Other specified diseases of liver; T78.3XXA Angioneurotic edema, initial encounter; Z12.5 Encounter for screening for malignant neoplasm of prostate
CPT/HCPCS: 36415; 84153; 85610; 86160; 86161

== ENCOUNTER → 2022-07-07 09:36 | Outpatient (BNVA) | payer MEDICARE, SELFPAY | PROVIDERS: PCP Nurse Practitioner Family; Visit Provider Urology | DX: N32.0 Bladder-neck obstruction (principal); C61 Malignant neoplasm of prostate | CPT/HCPCS: Q3014 ==

== ENCOUNTER 2022-07-11 10:20 | Outpatient (REF) | payer MEDICARE, SELFPAY ==
--- NOTE | ~2022-07-11 | MR_ITS ---
EXAMINATION: MR ABDOMEN WITHOUT AND WITH CONTRAST CLINICAL INFORMATION: Liver cyst COMPARISON: Multiple priors, most recently CT performed 04/26/2022 TECHNIQUE: MR abdomen was performed without and with use of 10 mL intravenous Gadavist gadolinium contrast. Postcontrast images are performed in multiphase dynamic sequences. Imaging was performed in 3 planes. FINDINGS: LUNG BASES: The visualized lung bases are unremarkable. LIVER, GALLBLADDER, AND BILIARY TREE: The liver is normal in size, smooth in contour, and normal in signal. No biliary ductal dilatation. There are multiple T2 bright lesions in the liver, appearing T1 dark. There is no enhancement on postcontrast imaging. These are consistent with cysts. The largest is seen in segment 5 with a lobulated Contour. This measures 4.4 x 4.5 cm. There is a 2.5 cm cyst in the caudate adjacent to the IVC. Multiple additional smaller cysts are seen throughout the liver. No suspicious liver mass. The gallbladder is unremarkable with no evidence of gallbladder wall thickening, or obvious pericholecystic inflammatory changes. PANCREAS: Unremarkable. SPLEEN: Normal. ADRENAL GLANDS: Normal appearing right adrenal gland. There is a left adrenal gland mass again identified. This measures 2.8 x 2.7 cm. There is signal dropout on out of phase imaging, consistent with an adenoma. Previous washout imaging on CT was indeterminate. KIDNEYS AND URETERS: The kidneys are normal in size, shape, and enhance symmetrically. No hydronephrosis. No perinephric stranding. Simple cyst at the midpole of the left kidney. No specific follow-up recommended. GASTROINTESTINAL TRACT: No bowel obstruction. No ascites or fluid collection. ABDOMINAL WALL: No significant hernia is appreciated. LYMPH NODES: No lymphadenopathy. VASCULAR: Atherosclerotic disease of the aorta. OSSEOUS STRUCTURES: Marrow signal normal. Degenerative change throughout the spine. MR/MR abdomen wo/w con IMPRESSION: 1. Multiple hepatic cysts. No suspicious liver mass. 2. Left adrenal mass shows signal dropout on out of phase imaging, consistent with an adenoma.
== END 2022-07-11 10:21 | disposition home or self-care (01) ==
LOC: HO.MRI 10:20
PROVIDERS: PCP Nurse Practitioner Family; Visit Provider Internal Medicine
DX: K76.89 Other specified diseases of liver (principal)
CPT/HCPCS: 74183; A9585

== ENCOUNTER 2022-07-26 06:30 | Day surgery (SDC) | payer MEDICARE, SELFPAY ==
[2022-07-20 11:13] VITALS: BMI 31.0
--- NOTE | 2022-07-25 13:00 | P.CONAN_ITS ---
Documented by User: Araceli Dey NP 07/25/22 13:02 HPI - Anesthesia Eval Consult details Narrative: 67yo M for Upper Endoscopy and Colonoscopy [facility] Active Problems Active Problems: All Active Problems (Updated 07/20/22 @ 11:10 by Petty Caicedo RN) Microscopic hematuria (Acute) Cerumen debris on tympanic membrane of left ear (Acute) Eustachian tube dysfunction (Acute) Dizziness (Acute) Neck discomfort (Acute) Leukocytosis (Acute) Allergic rhinitis (Acute) Systolic murmur (Acute) Elevated PSA (Acute) Bladder outlet obstruction (Acute) Left inguinal hernia (Acute) Screening for colon cancer (Acute) Excessive cerumen in both ear canals (Acute) Prostate cancer (Acute) Sensation of fullness in right ear (Acute) Pelvic lymphadenopathy (Acute) AAA (abdominal aortic aneurysm) (Acute) Angioedema (Acute) GERD (gastroesophageal reflux disease) (Acute) Hiatal hernia (Acute) Hyperparathyroidism (Acute) Vitamin D deficiency (Acute) History of hyperparathyroidism (Acute) Adrenal adenoma (Acute) Obesity (BMI 30.0-34.9) (Acute) Personal history of nicotine dependence (Acute) Dilatation of aorta (Acute) Renal cyst, left (Acute) Liver cyst (Acute) Adrenal nodule (Acute) Dyslipidemia (Acute) Past Medical History Medical History Adrenal adenoma Adrenal nodule Dilatation of aorta Dyslipidemia History of hyperparathyroidism History of prostate cancer Hypercalcemia Hyperparathyroidism Liver cyst Obesity (BMI 30.0-34.9) Personal history of nicotine dependence Primary hyperparathyroidism Renal cyst, left Vitamin D deficiency Family History Family History Brother Myocardial infarct Surgical History Surgical History History of colonoscopy History of esophagogastroduodenoscopy (EGD) History of parathyroidectomy History of tonsillectomy Hx of prostate biopsy Social History Social History Alcohol intake: current Alcohol intake frequency: 0-2 drinks per day Alcohol type: beer Patient Tobacco Use Status: Current everyday Tobacco user Tobacco use type: Cigarette Cigarettes Per Day: 10 Years Smoked: onset 14, 1ppd x 52yrs, 50PYH e-Cigarette/Vaping Use: Never Used Second Hand Smoke Exposure: Yes Use of substances other than those prescribed or required for medical reasons: No Are you DNR?: No Advance Directives: No Advance Directives Information Provided: Yes service: No Current occupational status: 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 The visually estimated ejection fraction is between 60-65%. ? - Evidence suggests grade I (mild) diastolic dysfunction.? - There is mild calcification of the aortic valve. ? Assessment and Plan Assessment Anesthesia Assessment: Chart Reviewed Documented by User: Abraham Rivera MD 07/26/22 08:51 [facility] Past Medical History Medical History Adrenal adenoma Adrenal nodule Dilatation of aorta Dyslipidemia History of hyperparathyroidism History of prostate cancer Hypercalcemia Hyperparathyroidism Liver cyst Obesity (BMI 30.0-34.9) Personal history of nicotine dependence Primary hyperparathyroidism Renal cyst, left Vitamin D deficiency Functional capacity: independent ambulation Family History Family History Brother Myocardial infarct Family history of problems with anesthesia: No Surgical History Surgical History History of colonoscopy History of esophagogastroduodenoscopy (EGD) History of parathyroidectomy History of tonsillectomy Hx of prostate biopsy History of Problems with Anesthesia: No Social History Social History Alcohol intake: current Alcohol intake frequency: 0-2 drinks per day Alcohol type: beer Patient Tobacco Use Status: Current everyday Tobacco user Tobacco use type: Cigarette Cigarettes Per Day: 10 Years Smoked: onset 14, 1ppd x 52yrs, 50PYH e-Cigarette/Vaping Use: Never Used Second Hand Smoke Exposure: Yes Use of substances other than those prescribed or required for medical reasons: No Are you DNR?: No Advance Directives: No Advance Directives Information Provided: Yes service: No Current occupational status: 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 Allergies Allergy/AdvReac Type Severity Reaction Status Date / Time Sulfa (Sulfonamide Allergy Intermediate rash Verified 07/26/22 06:47 Antibiotics) Exam Airway Mallampati Class: IV TM Dist: >3cm Neck ROM: Full Loose/Missing/Broken Teeth: Yes (Lower loose teeth ) Heart: S1,S2 Lungs: distant breath sounds Assessment and Plan Assessment Anesthesia Assessment: Anesthesia Plan Discussed Final Anesthetic Review Family History of Problems with Anesthesia: No History of Problems with Anesthesia: No NPO: Yes ASA Class: III Final Preanesthetic Review: Meds/Allgs Chart Reviewed, Consent Obtained/Reviewed and Anes Risks/Benef Reviewed Patient Risk: Intermediate Procedure Risk: Intermediate Anesthetic Plan Anesthetic Plan: MAC: Disposition: Standard PACU
[2022-07-26 06:52] VITALS: BP 137/85; PULSE 84; RESP 16; TEMP 35.8; O2SAT 97
[2022-07-26] MEDS: Lactated Ringers 1,000 ML 100 ML IVCONT (07:07)
--- NOTE | 2022-07-26 07:52 | P.HPSUR_ITS ---
Pre-Procedural Eval Section A Date of Service: 07/26/22 Section B Chief Complaint: screening,gerd Relevant Family History (Specify if Yes): No Relevant Social History: Tobacco Use Present Medications: see Short Stay Collaborative assessment Medical History: Significant History (Adrenal adenoma Adrenal nodule Dilatation of aorta Dyslipidemia History of hyperparathyroidism History of prostate cancer Hypercalcemia Hyperparathyroidism Liver cyst Obesity (BMI 30.0-34.9) Personal history of nicotine dependence Primary hyperparathyroidism Renal cyst, left Vitamin D deficiency) History of Previous Operations: Relevant previous surgery/procedure and date(s) (History of colonoscopy History of esophagogastroduodenoscopy (EGD) History of parathyroidectomy History of tonsillectomy Hx of prostate biopsy) Allergies: Allergies Allergy/AdvReac Type Severity Reaction Status Date / Time Sulfa (Sulfonamide Allergy Intermediate rash Verified 07/26/22 06:47 Antibiotics) Review of Systems Sugical H&P ROS: Negative: Constitution, Cardiovascular, Respiratory, Neur ological, Psychiatric, Hem-Onc, Allergic/Immunologic, Gastrointestinal, Genitourinary, Musculoskeletal, Integumentary, Endocrine and Eyes/Ears/Nose/Throat Exam Surgical H&P Exam: Normal: HEENT, Normal: Heart, Normal: Lungs, Normal: Extremities, Normal: Abdomen, Normal: Skin and Normal: Neurological Plan Diagnosis/Plan: Unchanged I have reviewed the history and physical and performed a pertinent physical examination on my patient. No changes have occurred unless specified. Time Spent With Patient Time: Total time managing care of this patient today ____ minutes.
--- NOTE | 2022-07-26 07:53 | P.OP_ITS ---
Operative Note Operative Note Date of Service: 07/26/22 Narrative: Operative Information Procedure Description: EGD, Colonoscopy Indication: gerd, screening Anesthesia: MAC FLEXIBLE TRANSORAL UPPER GASTROINTESTINAL ENDOSCOPY AND COLONOSCOPY PROCEDURE NOTE UPPER ENDOSCOPY Consent: Indications for the procedure and potential complications of bleeding, perforation, reaction to medications and missed diagnosis were discussed with the patient and informed consent was obtained. Instrument: Olympus GIF H 190 J mid size upper endoscope Monitoring: Vital signs and clinical assessment, continuous EKG monitoring, Pulse oximetry, Carbon Dioxide monitoring and blood pressure monitoring were done throughout the procedure. Procedure: The patient was placed in the left lateral decubitis position and pre-procedure medications were administered and a bite block was placed. The endoscope was inserted into the mouth and advanced under direct vision to the third part of duodenum. A careful inspection was made as the upper endoscope was withdrawn including a retroflexed examination of the proximal stomach; Findings and interventions are described below. Findings: Larynx:normal Esophagus: GE junction at 43 cm, diaphragm hiatus at 45 cm, consistent with 2 cm sliding hiatal hernia, possible short segment barretts, bx taken from GEJ, distal and proximal esophagus Stomach: Patchy erythema. Biopsies were obtained. Grade 2 flap valve on retroflexed examination of the cardia. Duodenum:bulbar duodenitis, bx taken Intervention: Biopsies as noted above COLONOSCOPY Instrument: Olympus variable stiffness pediatric scope 190L Colonoscopy Monitoring: Vital signs and clinical assessment, continuous EKG monitoring, Pulse oximetry, Carbon Dioxide monitoring and blood pressure monitoring were done throughout the procedure. Colon withdrawal time was 11 minutes. Procedure: The patient was placed in the left lateral decubitis position and pre-procedure medications were administered. After a digital rectal examination of the ano-rectum, the video colonoscope was inserted into the rectum and advanced through the colon to the cecum/TI. The colonoscope was slowly withdrawn in a retrograde panoramic fashion and the colon mucosa was carefully examined including a retroflexed view of the rectum. Findings and interventions are described below. Procedure Difficulty:moderate, pressure applied to reach cecum Findings: Terminal Ileum-normal Cecum:normal Ascending Colon: normal Transverse Colon -normal Descending Colon:normal Sigmoid Colon: 11-12 mm sessile polyp removed with cold snare Rectum: Retroflexion with small internal hemorrhoids, grade I Anorectum - normal Colon preparation: [place] Bowel Preparation Scale Right colon; 2 Transverse colon: 2 Left colon; 2 (0 = Unprepared colon segment with mucosa not seen due to solid stool that cannot be cleared. 1 = Portion of mucosa of the colon segment seen, but other areas of the colon segment not well seen due to staining, residual stool and/or opaque liquid. 2 = Minor amount of residual staining, small fragments of stool and/or opaque liquid, but mucosa of colon segment seen well. 3 = Entire mucosa of colon segment seen well with no residual staining, small fragments of stool or opaque liquid) Impression and Post Procedure Diagnosis: Endoscopy Findings: hiatal hernia gastritis duodenitis suspected barretts esophagus +----- Colonoscopy Findings: polyp internal hemorrhoids Plan: Await Pathology results Repeat Colonoscopy in 10 years if hyperplastic polyp, 5 yrs if adenomatous polyp or earlier if clinically indicated High fiber diet leaflet avoid straining at stool, epsom salts and sitz bath, anusol supps or cream he may benefit from PPI-will await path results --if barretts pos then repeat EGD in 3-5 yrs Above findings were reviewed with the patient and relevant handouts were provided if indicated.
[2022-07-26 08:50] VITALS: BP 109/58; PULSE 96; RESP 12; TEMP 36.2; O2SAT 96
[2022-07-26 09:05] VITALS: BP 116/66; PULSE 96; RESP 12; O2SAT 97
[2022-07-26 09:20] VITALS: BP 135/63; PULSE 89; RESP 16; TEMP 36.3; O2SAT 97
== END 2022-07-26 10:06 | disposition home or self-care (01) ==
PROVIDERS: PCP Nurse Practitioner Family; Visit Provider Internal Medicine Gastroenterology
PROC: (CPT 45385; principal; 2022-07-26 07:30)
DX: Z12.11 Encounter for screening for malignant neoplasm of colon (principal); K63.5 Polyp of colon; K64.0 First degree hemorrhoids; K21.9 Gastro-esophageal reflux disease without esophagitis; K29.50 Unspecified chronic gastritis without bleeding; K29.80 Duodenitis without bleeding; K44.9 Diaphragmatic hernia without obstruction or gangrene; D35.02 Benign neoplasm of left adrenal gland; I77.811 Abdominal aortic ectasia; E78.5 Hyperlipidemia, unspecified; E55.9 Vitamin D deficiency, unspecified; Z85.46 Personal history of malignant neoplasm of prostate; F17.210 Nicotine dependence, cigarettes, uncomplicated; Z88.2 Allergy status to sulfonamides
CPT/HCPCS: 45385; 43239; 88305; 88342; J2250

== ENCOUNTER 2022-09-25 08:26 | Outpatient (REF) | payer MEDICARE, SELFPAY ==
--- NOTE | ~2022-09-25 | CT_ITS ---
EXAMINATION: LUNG CANCER SCREENING CT CHEST WITHOUT CONTRAST CLINICAL INFORMATION: Current smoker with 50 pack year history COMPARISON: 07/29/2021 10/05/2020 TECHNIQUE: Multidetector volumetric CT imaging of the chest was obtained noncontrast using low dose screening CT technique. Axial thin section 0.625 mm reformations in soft tissue and lung windows were obtained. Sagittal and coronal reformations were obtained. Axial MIP images were also created and reviewed. This CT examination was performed using dose optimization techniques as appropriate, variously including the following: *Automated exposure control *Adjustment of mA and/or kV according to patient size (this includes techniques or standardized protocols for targeted exams where dose is matched to indication/reason for exam; i.e. extremities or head) *Use of iterative reconstruction technique TOTAL EXAM DLP: 61 mGy-cm FINDINGS: PULMONARY NODULES: No suspicious pulmonary nodules. LUNGS / PLEURA: Minimal emphysema. Diffuse mild bronchial thickening. Slight mild diffuse cylindrical bronchiectasis. No pleural effusion or pneumothorax. MEDIASTINUM / FELICE: Heart normal in size without pericardial effusion. Great vessels normal caliber. No lymphadenopathy. Coronary calcifications present. Imaged thyroid gland unremarkable. CHEST WALL / AXILLA: Unremarkable. UPPER ABDOMEN: Stable benign hepatic cysts. Stable 3.3 cm left adrenal nodule measuring 2 HU (benign) also previously characterized as a benign adenoma by CT adrenal protocol on 10/05/2020 OSSEOUS STRUCTURES: No acute or suspicious osseous abnormalities. CT/CT lung screening IMPRESSION: * No evidence of pulmonary malignancy. * Minimal emphysema and chronic airways disease. ASSESSMENT: Lung RADS category: 1. Negative. No nodules or definitely benign nodules. Continue annual screening with low-dose CT in 12 months. Probability of malignancy less than 1%. INCIDENTAL FINDINGS (S CATEGORY): None. RECOMMENDATION: Follow up low dose CT chest in 1 year.
== END 2022-09-25 08:27 | disposition home or self-care (01) ==
LOC: HO.CT 08:26
PROVIDERS: PCP Nurse Practitioner Family; Visit Provider Physician Assistant Medical
DX: Z12.2 Encounter for screening for malignant neoplasm of respiratory organs (principal); F17.210 Nicotine dependence, cigarettes, uncomplicated
CPT/HCPCS: 71271; 99212

== ENCOUNTER 2022-11-14 06:59 | Outpatient (REF) | payer MEDICARE, SELFPAY ==
[2022-11-14 11:20] LABS: MANUAL DIFF FLAG NO
[2022-11-14 11:28] LABS: Basophils Absolute Auto 0.1 X10*3/uL (0.0-0.2); Basophils Percent Auto 0.7 % (0-2); Eosinophils Absolute Auto 0.5 X10*3/uL (0.0-0.4); Eosinophils Percent Auto 6.8 % (0-4); Hematocrit 47.8 % (42.0-52.0); Hemoglobin 15.9 g/dl (14.0-18.0); Imm Gran Abs Auto 0.02 X10*3/uL (0.00-0.03); Imm Gran Pct Auto 0.3 % (0.0-0.4); Lymphocytes Absolute Auto 3.4 X10*3/uL (1.2-4.9); Lymphocytes Percent Auto 46.9 % (20-40); Mean Corpuscular HGB Conc 33.3 g/dl (31.0-36.0); Mean Corpuscular Hemoglobin 30.9 pg (27.0-33.0); Mean Corpuscular Volume 92.8 fL (80.0-98.0); Mean Platelet Volume 9.7 fL (9.4-12.4); Monocytes Absolute Auto 0.6 X10*3/uL (0.1-1.2); Monocytes Percent Auto 8.5 % (2-11); Neutrophils Absolute Auto 2.6 x10*3/uL (2.0-8.3); Neutrophils Percent Auto 36.8 % (45-73); Platelet Count 260 X10*3/uL (160-400); Red Blood Count 5.15 X10*6/uL (4.60-5.80); Red Cell Distribution Width 13.2 % (11.0-16.0); White Blood Count 7.2 X10*3/uL (4.8-10.8)
[2022-11-14 12:06] LABS: Alanine Aminotransferase 18 U/L (0-40); Alkaline Phosphatase 64 U/L (39-117); Anion Gap 13 (12-20); Aspartate Amino Transferase 18 U/L (5-37); Bilirubin Total 0.4 mg/dL (0.0-1.0); Blood Urea Nitrogen 11 mg/dL (9-16); Calcium 9.2 mg/dL (8.4-10.2); Carbon Dioxide 21 mmol/L (22-29); Chloride 105 mmol/L (96-108); Cholesterol 191 mg/dL; Estimated Glomerular Filt Rate > 60; Glucose Fasting 96 mg/dL (60-99); HDL Cholesterol 46 mg/dL; LDL Cholesterol Calculated 111 mg/dl; Potassium 4.4 mmol/L (3.3-5.1); Sodium 135 mmol/L (135-145); TSH reflex Free T4 3.61 uIU/mL (0.32-4.0); Total Protein 7.2 g/dL (6.5-8.0); Triglycerides 170 mg/dL
[2022-11-14 12:07] LABS: PSA,Total (Free>4and<10) 3.59 ng/mL (0.00-4.00)
== END 2022-11-14 07:00 | disposition home or self-care (01) ==
LOC: HO.HMGCLDS 06:59
PROVIDERS: Absent Provider Urology; PCP Nurse Practitioner Family; Visit Provider Nurse Practitioner Family
DX: C61 Malignant neoplasm of prostate (principal); I10 Essential (primary) hypertension; Z12.5 Encounter for screening for malignant neoplasm of prostate
CPT/HCPCS: 36415; 80053; 80061; 84153; 84443; 85025

== ENCOUNTER 2022-12-13 11:34 | Outpatient (AMB) | payer MEDICARE, SELFPAY ==
--- NOTE | 2022-12-13 11:36 | A.OFFVIS_ITS ---
Intake Intake Visit Reasons: 4M PSA(set) Intake Note: Pt presents to the office today for a 4 month follow-up PSA. Allergies Sulfa (Sulfonamide Antibiotics) Allergy (Intermediate, Verified 12/13/22 11:37) rash Medication List - Last Reconciled 12/13/22 by Fernando Barlow MD finasteride 5 mg PO DAILY 90 days HPI HPI Comments History of Present Illness Details Leif is a pleasant male. He is a patient of Dr. Wright. He is seen for the following urologic conditions - microscopic hematuria - elevated PSA - prostate cancer PSA declined to 3.6 Start cycling finasteride every other month Continue 4 month surveillance He did ask about an upper endoscopy result. 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 This was discussed. Should talk to PCP regarding reflux therapy and repeat investigation. Prostate cancer - Grade Group 1 - 02/25 Current therapy active surveillance 06/29 PSA 5, 11/[address] Barlow 02/25 Elevated PSA 5.5 US 30gm Histologic grade: Dara score: 3+3=6 Number cores positive: 5 (two more suspicious) LBL 5%, GERALDINE 50%, RBM 5%, RML 5%, RMM 30% % of tissue involved:5-10% of all tissue examined Periprostatic fat inv, Seminal vesicle inv, Perineural inv, LVI: Not identified Total % - Staging 03/28 - MRI left anterior peripheral 8mm Pi-RADS 5 Elevated PSA Failed trial of finasteride PSA 05/27 3.6, 05/28 4.4, 12/26 5.3 F 21 Microscopic Hematuria: Initial evaluation 2020 Microscopic hematuria was diagnosed during routine UA - atypical cells on evaluation. They are here for follow-up evaluation Since the last visit the patient has has not noticed gross hematuria. Relevant medical history for no pertinent medical history. 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 - 01/24 fish negative Therapeutic plan - Follow in 4 months on PSA [facility] Medical History Adrenal adenoma Adrenal nodule Dilatation of aorta Dyslipidemia History of hyperparathyroidism History of prostate cancer Hypercalcemia Hyperparathyroidism Liver cyst Obesity (BMI 30.0-34.9) Personal history of nicotine dependence Primary hyperparathyroidism Renal cyst, left Vitamin D deficiency Surgical History History of colonoscopy History of esophagogastroduodenoscopy (EGD) History of parathyroidectomy History of tonsillectomy Hx of prostate biopsy Family History Brother Myocardial infarct Social History Alcohol intake: current Alcohol intake frequency: 0-2 drinks per day Alcohol type: beer Patient Tobacco Use Status: Current everyday Tobacco user Tobacco use type: Cigarette Cigarettes Per Day: 10 Years Smoked: onset 14, 1ppd x 52yrs, 50PYH e-Cigarette/Vaping Use: Never Used Second Hand Smoke Exposure: Yes service: No Current occupational status: retired 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[employer] Review of Systems Const Denies chills and Denies fever(s) Card Reports no additional complaints and Denies syncope Resp Denies cough GI Denies abdominal pain and Denies heartburn Reports as per HPI and Denies change in libido Neuro Denies syncope Psych Denies change in libido Endo Denies change in libido Physical Exam Const General: cooperative, healthy appearing, comfortable and no acute distress Orientation/consciousness: patient oriented x3 HEENT Face and sinus: Yes normal facial exam Mouth: moist mucous membranes Neck Neck: Yes normal visual inspection, Yes full ROM and Yes trachea midline Chest Chest palpation & inspection: normal inspection of the chest Resp Effort & Inspection: normal respiratory effort, able to speak in complete sentences and no respiratory distress GI Inspection: Yes normal to inspection Back/Spine/Pelvis Cervical Spine: normal cervical lordosis Thoracic/Lumbar Spine: thoracic and lumbar spine normal to inspection Skin General skin exam: no rashes or lesions noted Neuro General: patient oriented x3, gait normal, tone normal and moves all extremities Extrem General: Yes normal to inspection and Yes capillary refill normal Assessment & Plan Assessment & Plan (1) Prostate cancer: Comment: 02/2522 Grade Group 1 - 5 cores Code(s): C61 - Malignant neoplasm of prostate Plan Four month follow-up Orders: Orders Prostate Specific Antigen 4 Months C61 - Malignant neoplasm of prostate Patient Instructions: Imaging studies, laboratory and physical exam results were discussed and reviewed in detail. No major barriers to patient understanding were identified. An opportunity to ask questions regarding the treatment plan was provided. All questions were answered. The patient expressed understanding and agreement with the above treatment plan. The patient is aware they should contact our office by phone for worsening of their current condition or the appearance of new urologic symptoms. Compliance is encouraged with any medications and followup testing that is ordered. It is a privilege to participate in the urologic care of your patient. If you have any questions or concerns regarding treatment for the above conditions, or other urologic issues, please do not hesitate to contact me. The office telephone contact is [phone]. This note is constructed using voice recognition software. While every effort has been made to ensure accuracy size painter errors may have been included. Yours sincerely, Dr Fernando Barlow MD, [facility] - Urology Providers of Expert, Compassionate Care for the Genitourinary System Coding Level of Care Code Est Pt Level 3 (45707) Diagnoses Prostate cancer C61
== END 2022-12-13 12:10 | disposition home or self-care (01) ==
PROVIDERS: Visit Provider Urology
DX: C61 Malignant neoplasm of prostate (principal)
CPT/HCPCS: 99213

== ENCOUNTER → 2022-12-13 11:34 | Outpatient (BNVA) | payer MEDICARE, SELFPAY | PROVIDERS: Visit Provider Urology | DX: C61 Malignant neoplasm of prostate (principal) | CPT/HCPCS: 99212 ==

== ENCOUNTER → 2023-01-03 08:49 | Outpatient (BNVA) | payer SELFPAY | PROVIDERS: PCP Nurse Practitioner Family; Visit Provider Physician Assistant Medical | DX: Z02.79 Encounter for issue of other medical certificate (principal) ==

== ENCOUNTER 2023-02-21 09:23 | Outpatient (REF) | payer MEDICARE, SELFPAY ==
--- NOTE | ~2023-02-21 | MM_ITS ---
EXAMINATION: BONE DENSITOMETRY CLINICAL INDICATION: Hyperparathyroidism. COMPARISON: Baseline BD dated 06/04/2018. TECHNIQUE: Using a [employer] DXA System (software version: 13.1) manufactured by [employer], dual-energy x-ray absorptiometry was performed of the lumbar spine, left hip, and left forearm radius 33%. The images are of good technical quality. Summary results are attached. FINDINGS: LEFT FEMUR, NECK: Current: BMD 1.049 g/cm2, Z-score 0.6, T-score -0.2, normal. Baseline: BMD 1.108 g/cm2. LEFT FEMUR, TOTAL: Current: BMD 1.137 g/cm2, Z-score 0.5, T-score 0.3, normal, 0.3% increase from baseline (<5% change is not significant). Baseline: BMD 1.134 g/cm2. AP SPINE L1-L2 (excluding L3 and L4): The data of L1-L4 has been changed to exclude the L3 and L4 vertebral bodies, because degenerative sclerosis at these levels may cause overestimation of lumbar spine density. Current: BMD 1.392 g/cm2, Z-score 1.4, T-score 1.6, normal, 5.5% increase from baseline (<5% change is not significant). Baseline: BMD 1.319 g/cm2. LEFT FOREARM RADIUS 33%: BMD 1.033 g/cm2, Z-score 1.2, T-score 0.4, normal, 6.1% increase from baseline (<5% change is not significant). Baseline: BMD 0.974 g/cm2. IDENTIFIED RISK FACTORS: Hyperparathyroid, tobacco use (current smoker). HISTORY OF FRACTURE: None listed. MEDICATIONS: Multivitamin, vitamin D. MM/XR DEXA appendicular skeleton IMPRESSION: 1. DIAGNOSIS: Normal bone density based on the lowest T-score value of -0.2 in the femoral neck applying World Health Organization criteria. 2. 10-YEAR FRACTURE RISK PREDICTION, FRAX: According to the guidelines, FRAX calculation should only be performed on patients in the osteopenia bone density category. Therefore, FRAX was not performed on this patient. 3. Treatment Recommendations: NOF guidelines recommend consideration for treatment in postmenopausal women and men age 50 and older presenting with the following: -A hip or vertebral (clinical or morphometric) fracture. -T-score less than or equal to -2.5 at the femoral neck or spine after appropriate evaluation to exclude secondary causes. -Low bone mass at the hip or spine and a 10-year fracture probability by FRAX of greater than or equal to 3% for hip fracture or greater than or equal to 20% for major osteoporotic fracture based on the [place] adapted WHO algorithm. 4. Other Recommendations: All treatment decisions require clinical judgment and consideration of individual patient factors, including patient preferences, comorbidities, previous drug use, risk factors not captured in the FRAX model (e.g. frailty, falls, vitamin D deficiency, increased bone turnover, interval significant decline in bone density) and possible under or overestimation of fracture risk by FRAX. FUTURE SCAN RECOMMENDATION: People with diagnosed cases of osteoporosis or at high risk for fracture should have regular bone mineral density tests. For patients eligible for Medicare, routine testing is allowed once every 2 years. The testing frequency can be increased to one year for patients who have rapidly progressing disease, those who are receiving or discontinuing medical therapy to restore bone mass, or have additional risk factors.
== END 2023-02-21 09:24 | disposition home or self-care (01) ==
LOC: HO.MAMMO 09:23
PROVIDERS: PCP Nurse Practitioner Family; Visit Provider Internal Medicine
DX: E21.3 Hyperparathyroidism, unspecified (principal); F17.200 Nicotine dependence, unspecified, uncomplicated; Z13.820 Encounter for screening for osteoporosis
CPT/HCPCS: 77081

== ENCOUNTER 2023-02-26 08:50 | Outpatient (AMB) | payer MEDICARE, SELFPAY ==
--- NOTE | 2023-02-26 09:01 | MHC.PC.OV ---
Vital Signs 02/26/23 09:03 Height 5 ft 11 in Weight 222 lb 6 oz BMI 31.0 BP 122/80 Blood Pressure Location Lt brachial Position Sitting Pulse 74 Pulse Source Pulse Oximeter Pulse Oximetry (%) 97 Oxygen Delivery Method Room Air Intake Visit Reasons: Annual PE Allergies Sulfa (Sulfonamide Antibiotics) Allergy (Intermediate, Verified 02/26/23 09:03) rash Tobacco use date assessed: 08/28/22 HPI Annual PE HPI Details Pt is here for a PE. Will order labs. Colon screen is up to date. PSA is up to date, pt sees urology. smokes 1 pack a day, repeats yearly LDCTs. Pt c/o sinus pressure. Will send amoxicillin for sinusitis. Denies fever, chills, and dizziness. [facility] Medical History History of prostate cancer Hyperparathyroidism Vitamin D deficiency History of hyperparathyroidism Adrenal adenoma Obesity (BMI 30.0-34.9) Dilatation of aorta Liver cyst Personal history of nicotine dependence Renal cyst, left Dyslipidemia Primary hyperparathyroidism Adrenal nodule Hypercalcemia Surgical History Hx of prostate biopsy History of tonsillectomy History of parathyroidectomy History of esophagogastroduodenoscopy (EGD) History of colonoscopy Family History Brother Myocardial infarct Social History Alcohol intake: current Alcohol intake frequency: 0-2 drinks per day Alcohol type: beer Patient Tobacco Use Status: Current everyday Tobacco user Tobacco use type: Cigarette Cigarettes Per Day: 10 Years Smoked: onset 14, 1ppd x 52yrs, 50PYH e-Cigarette/Vaping Use: Never Used Second Hand Smoke Exposure: Yes service: No Current occupational status: 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 Rakesh Wray, Paula Ragland, Jeromy Mckeon and colleagues, with an educational emily from [employer]. Review of Systems Const Denies chills and Denies fever(s) Eyes Denies blurry vision ENT Denies vertigo, Denies dizziness and Denies sore throat Card Denies chest pain at rest, Denies chest pain with activity, Denies diaphoresis, Denies dyspnea and Denies dyspnea on exertion Resp Denies cough, Denies dyspnea, Denies dyspnea on exertion and Denies wheezing GI Denies abdominal pain, Denies melena, Denies hematochezia, Denies constipation, Denies diarrhea and Denies loose stools Denies hematuria Musc Denies numbness and Denies tingling Skin/Breast Denies lesions Neuro Denies vertigo, Denies dizziness, Denies numbness and Denies tingling Psych Denies anxiety, Denies depression, Denies homicidal ideation, Denies suicidal ideation and Denies other (substance abuse) Aller/Immun Denies wheezing Physical exam (Primary Care) Vital Signs: Last Vital Signs Pulse 74 02/26/23 09:03 BP 122/80 02/26/23 09:03 Pulse Ox 97 02/26/23 09:03 Oxygen Delivery Method Room Air 02/26/23 09:03 BMI result Body Mass Index 31.0 Tobacco/Smoking Status: Tobacco use Status Tobacco use date assessed 08/28/22 02/26/23 09:02 Patient Tobacco Use Status Current everyday Tobacco 02/26/23 09:02 Tobacco use type Cigarette 02/26/23 09:02 e-Cigarette/Vaping Use Never Used 02/26/23 09:02 Thrive Assessment: Date of Thrive Assessment Date Thrive assessed 08/28/22 02/26/23 09:02 Const General: cooperative Nutritional Appearance: well nourished Orientation/consciousness: patient oriented x3 HENMT Other: maxillary sinus pressure with palpation Head: Yes normal to inspection, Yes normocephalic and Yes atraumatic Ears: TM's normal bilaterally Eyes General: appearance normal, both eyes and all related structures Alignment and Position: alignment normal and position normal Neck Neck: Yes normal visual inspection and Yes no lymphadenopathy Thyroid: Thyroid normal Resp Effort & Inspection: normal respiratory effort Auscultation: clear to auscultation bilaterally Cardio Rate: regular rate Rhythm: regular rhythm Heart sounds: S1 normal heart sound present, S2 normal heart sound present and Murmur heart sound present systolic GI Palpation (GI): Soft to palpation and nontender Auscultation: normal bowel sounds Male General Exam: Yes normal external exam Penis: normal penis Scrotum: scrotum normal, testes descended bilaterally and no inguinal hernias Testes: no testicular mass Skin Rashes: no rashes Neuro General: patient oriented x3, moves all extremities, no focal motor deficits and deep tendon reflexes 2+ bilaterally Romberg Test: Negative Psych Appearance: grossly normal Mental Status: mental status grossly normal Speech and movement: Normal speech and movement present Affect: normal affect Attitude: cooperative Thought process: Normal thought process present Thought content: Normal thought content present Insight: Good insight present (Psych) Judgement: Good judgement present (Psych) Assessment and Plan Assessment & Plan (1) Physical exam: Code(s): Z00.00 - Encounter for general adult medical examination without abnormal findings (2) Vitamin D deficiency: Code(s): E55.9 - Vitamin D deficiency, unspecified Plan The patient agreed to the use of a medical staff manager for this encounter. Scribed for ITZEL Ballesteros by Trina Kemp medical staff manager, on 02/26/2023 at 09:25 EST Orders: Orders Complete Blood Count Auto Diff Today Z00.00 - Encounter for general adult medical examination without abnormal findings UA CC w/rflx Micro + Cult Today Z00.00 - Encounter for general adult medical examination without abnormal findings Vitamin D 25-OH Total Today E55.9 - Vitamin D deficiency, unspecified Comprehensive [place]. Panel Fast Today Z00.00 - Encounter for general adult medical examination without abnormal findings TSH reflex Free T4 Today Z00.00 - Encounter for general adult medical examination without abnormal findings Lipid Panel Today Z00.00 - Encounter for general adult medical examination without abnormal findings Medications: New amoxicillin 500 mg PO BID 20 tabs 0RF 10 days Coding Level of Care Code Est Pt Prev Care >65y(04676) Diagnoses Physical exam Z00. Vitamin D deficiency E55.9
[2023-02-26 09:03] VITALS: BP 122/80; PULSE 74; O2SAT 97; BMI 31.0
== END 2023-02-26 09:49 | disposition home or self-care (01) ==
PROVIDERS: Visit Provider Nurse Practitioner Family
DX: Z00.00 Encounter for general adult medical examination without abnormal findings (principal); E55.9 Vitamin D deficiency, unspecified
CPT/HCPCS: 99397

== ENCOUNTER 2023-03-06 07:07 | Outpatient (REF) | payer MEDICARE, SELFPAY ==
[2023-03-06 11:10] LABS: MANUAL DIFF FLAG NO
[2023-03-06 11:17] LABS: Basophils Absolute Auto 0.1 X10*3/uL (0.0-0.2); Basophils Percent Auto 0.7 % (0-2); Eosinophils Absolute Auto 0.5 X10*3/uL (0.0-0.4); Eosinophils Percent Auto 6.1 % (0-4); Hematocrit 49.1 % (42.0-52.0); Hemoglobin 16.8 g/dl (14.0-18.0); Imm Gran Abs Auto 0.02 X10*3/uL (0.00-0.03); Imm Gran Pct Auto 0.3 % (0.0-0.4); Lymphocytes Absolute Auto 3.1 X10*3/uL (1.2-4.9); Lymphocytes Percent Auto 40.7 % (20-40); Mean Corpuscular HGB Conc 34.2 g/dl (31.0-36.0); Mean Corpuscular Hemoglobin 31.6 pg (27.0-33.0); Mean Corpuscular Volume 92.5 fL (80.0-98.0); Mean Platelet Volume 9.7 fL (9.4-12.4); Monocytes Absolute Auto 0.6 X10*3/uL (0.1-1.2); Monocytes Percent Auto 7.9 % (2-11); Neutrophils Absolute Auto 3.4 x10*3/uL (2.0-8.3); Neutrophils Percent Auto 44.3 % (45-73); Platelet Count 267 X10*3/uL (160-400); Red Blood Count 5.31 X10*6/uL (4.60-5.80); Red Cell Distribution Width 12.4 % (11.0-16.0); White Blood Count 7.7 X10*3/uL (4.8-10.8)
[2023-03-06 11:33] LABS: Alanine Aminotransferase 21 U/L (0-40); Albumin Level 4.2 g/dL (3.5-5.0); Alkaline Phosphatase 67 U/L (39-117); Anion Gap 14 (12-20); Aspartate Amino Transferase 16 U/L (5-37); Bilirubin Total 0.4 mg/dL (0.0-1.0); Blood Urea Nitrogen 15 mg/dL (9-16); Calcium 9.3 mg/dL (8.4-10.2); Carbon Dioxide 22 mmol/L (22-29); Chloride 106 mmol/L (96-108); Cholesterol 202 mg/dL (<200); Estimated Glomerular Filt Rate > 60; Glucose Fasting 95 mg/dL (60-99); HDL Cholesterol 48 mg/dL (>40); LDL Cholesterol Calculated 128 mg/dL (<100); Potassium 4.2 mmol/L (3.3-5.1); Sodium 138 mmol/L (135-145); Total Protein 7.5 g/dL (6.5-8.0); Triglycerides 134 mg/dL (<150)
[2023-03-06 11:57] LABS: TSH reflex Free T4 3.34 uIU/mL (0.32-4.0); Vitamin D 25-OH Total 44.2 ng/mL (>30)
== END 2023-03-06 07:08 | disposition home or self-care (01) ==
LOC: HO.HMGCLDS 07:07
PROVIDERS: PCP Nurse Practitioner Family; Visit Provider Nurse Practitioner Family
DX: Z00.00 Encounter for general adult medical examination without abnormal findings (principal); E55.9 Vitamin D deficiency, unspecified; I10 Essential (primary) hypertension
CPT/HCPCS: 36415; 80053; 80061; 82306; 84443; 85025

== ENCOUNTER 2023-04-26 09:37 | Outpatient (REF) | payer MEDICARE, SELFPAY ==
[2023-04-26 14:09] LABS: Prostate Specific Antigen 5.43 ng/mL (<0.05-4.0)
== END 2023-04-26 09:38 | disposition home or self-care (01) ==
LOC: HO.HMGCLDS 09:37
PROVIDERS: PCP Nurse Practitioner Family; Visit Provider Urology
DX: Z12.5 Encounter for screening for malignant neoplasm of prostate (principal); C61 Malignant neoplasm of prostate
CPT/HCPCS: 36415; 84153

== ENCOUNTER 2023-05-11 08:33 | Outpatient (AMB) | payer MEDICARE, SELFPAY ==
--- NOTE | 2023-05-11 08:34 | MHC.OFFVIS ---
Intake Intake Visit Reasons: 4M PSA(set) Intake Note: Patient is Present for Telephone Follow Up PSA Urology Med: Finasteride Antibiotic Allergy: Sulfa Blood Thinner: None Allergies Sulfa (Sulfonamide Antibiotics) Allergy (Intermediate, Verified 05/11/23 08:35) rash Medication List - Last Reconciled 05/11/23 by Fernando Barlow MD finasteride 5 mg PO DAILY 90 days HPI HPI Comments History of Present Illness Details Leif is a pleasant male. He is a patient of Dr. Wright. He is seen for the following urologic conditions - microscopic hematuria - elevated PSA - prostate cancer Telemedicine Evaluation 15 min Consultation [employer] Beckie Video atempted PSA slight rise to 5.2 Has been cycling finasteride every other month Go back to daily finasteride Will need targeted biopsy this year He did ask about an upper endoscopy result. 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 This was discussed. Should talk to PCP regarding reflux therapy and repeat investigation. Prostate cancer - Grade Group 1 - 02/25 Current therapy active surveillance 06/29 PSA 5, 11/[address] Barlow 02/25 Elevated PSA 5.5 US 30gm Histologic grade: [place] score: 3+3=6 Number cores positive: 5 (two more suspicious) LBL 5%, GERALDINE 50%, RBM 5%, RML 5%, RMM 30% % of tissue involved: 5-10% of all tissue examined Periprostatic fat inv, Seminal vesicle inv, Perineural inv, LVI: Not identified Total % - Staging 03/28 - MRI left anterior peripheral 8mm Pi-RADS 5 Microscopic Hematuria: Initial evaluation 2019 Microscopic hematuria was diagnosed during routine UA - atypical cells on evaluation. They are here for follow-up evaluation Since the last visit the patient has has not noticed gross hematuria. Relevant medical history for no pertinent medical history. 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 - 01/24 fish negative Therapeutic plan - Follow in 4 months on PSA [facility] Medical History History of prostate cancer Hyperparathyroidism Vitamin D deficiency History of hyperparathyroidism Adrenal adenoma Obesity (BMI 30.0-34.9) Dilatation of aorta Liver cyst Personal history of nicotine dependence Renal cyst, left Dyslipidemia Primary hyperparathyroidism Adrenal nodule Hypercalcemia Surgical History Hx of prostate biopsy History of tonsillectomy History of parathyroidectomy History of esophagogastroduodenoscopy (EGD) History of colonoscopy Family History Brother Myocardial infarct Social History Alcohol intake: current Alcohol intake frequency: 0-2 drinks per day Alcohol type: beer Patient Tobacco Use Status: Current everyday Tobacco user Tobacco use type: Cigarette Cigarettes Per Day: 10 Years Smoked: onset 14, 1ppd x 52yrs, 50PYH e-Cigarette/Vaping Use: Never Used Second Hand Smoke Exposure: Yes service: No Current occupational status: retired 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[employer] Review of Systems Const All systems reviewed & are unremarkable except as noted in HPI and below Reports no additional complaints Resp Reports no additional complaints GI Reports no additional complaints Reports as per HPI Musc Reports no additional complaints Physical Exam Telemedicine evaluation Appropriate responses Regular breathing rate and rhythm HEENT Head: Yes normal to inspection Ears: hearing grossly normal bilaterally Eyes General: appearance normal, both eyes and all related structures Neck Neck: Yes normal visual inspection Chest Chest palpation & inspection: normal inspection of the chest Resp Effort & Inspection: normal respiratory effort and able to speak in complete sentences Assessment & Plan Assessment & Plan (1) Prostate cancer: Comment: 02/2522 Grade Group 1 - 5 cores Code(s): C61 - Malignant neoplasm of prostate Plan Four month follow-up PSA office Orders: Orders PSA,Total (Free>4and<10) 4 Months C61 - Malignant neoplasm of prostate Medications: Refilled finasteride 5 mg PO DAILY 90 tabs 0RF 90 days N13.8 - Other obstructive and reflux uropathy, N40.1 - Benign prostatic hyperplasia with lower urinary tract symptoms, R33.9 - Retention of urine, unspecified Patient Instructions: Imaging studies, laboratory and physical exam results were discussed and reviewed in detail. No major barriers to patient understanding were identified. An opportunity to ask questions regarding the treatment plan was provided. All questions were answered. The patient expressed understanding and agreement with the above treatment plan. The patient is aware they should contact our office by phone for worsening of their current condition or the appearance of new urologic symptoms. Compliance is encouraged with any medications and followup testing that is ordered. It is a privilege to participate in the urologic care of your patient. If you have any questions or concerns regarding treatment for the above conditions, or other urologic issues, please do not hesitate to contact me. The office telephone contact is [phone]. This note is constructed using voice recognition software. While every effort has been made to ensure accuracy roustabout head errors may have been included. Yours sincerely, Dr Fernando Barlow MD, [facility] - Urology Providers of Expert, Compassionate Care for the Genitourinary System Telehealth Telehealth Location of provider rendering services: practice address Location of patient: address on file Patient Identification confirmed using: Name, : Yes Telehealth method: video Patient verbally consented to treatment: Yes Patient verbally consented to billing insurance company: Yes Patient informed of any privacy concerns related to visit: Yes Coding Level of Care Code Tele Est Pt Level 4 (31158) Diagnoses Prostate cancer C61
== END 2023-05-11 09:11 | disposition home or self-care (01) ==
LOC: HO.HUSH 08:33
PROVIDERS: PCP Nurse Practitioner Family; Visit Provider Urology
DX: C61 Malignant neoplasm of prostate (principal)
CPT/HCPCS: 99213

== ENCOUNTER → 2023-05-11 08:33 | Outpatient (BNVA) | payer MEDICARE, SELFPAY | PROVIDERS: PCP Nurse Practitioner Family; Visit Provider Urology ==

== ENCOUNTER 2023-05-16 07:14 | Outpatient (AMB) | payer MEDICARE, SELFPAY ==
--- NOTE | 2023-05-16 07:29 | MHC.PC.OV ---
Intake Visit Reasons: ? sprained left wrist, [phone] Allergies Sulfa (Sulfonamide Antibiotics) Allergy (Intermediate, Verified 05/11/23 08:35) rash Tobacco use date assessed: 08/28/22 HPI ? sprained left wrist, [phone] HPI Details Pt c/o left hand pain and weakness. He reports pain with gripping and movement. Pt also reports swelling to the back of his hand. Will order XR. Denies fever, chills, and dizziness. He reported that he does not remember any one event that could have caused this though did mention, i could have twisted it wrong . [facility] Medical History History of prostate cancer Hyperparathyroidism Vitamin D deficiency History of hyperparathyroidism Adrenal adenoma Obesity (BMI 30.0-34.9) Dilatation of aorta Liver cyst Personal history of nicotine dependence Renal cyst, left Dyslipidemia Primary hyperparathyroidism Adrenal nodule Hypercalcemia Surgical History Hx of prostate biopsy History of tonsillectomy History of parathyroidectomy History of esophagogastroduodenoscopy (EGD) History of colonoscopy Family History Brother Myocardial infarct Social History Alcohol intake: current Alcohol intake frequency: 0-2 drinks per day Alcohol type: beer Patient Tobacco Use Status: Current everyday Tobacco user Tobacco use type: Cigarette Cigarettes Per Day: 10 Years Smoked: onset 14, 1ppd x 52yrs, 50PYH Packs per year/per ci.00 e-Cigarette/Vaping Use: Never Used Second Hand Smoke Exposure: Yes service: No Current occupational status: 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 Rakesh Wray, Paula Ragland, Jeromy Mckeon and colleagues, with an educational emily from [employer] Review of Systems Const Reports as per HPI Physical exam (Primary Care) Tobacco/Smoking Status: Tobacco use Status Tobacco use date assessed 08/28/22 05/16/23 07:34 Patient Tobacco Use Status Current everyday Tobacco 05/16/23 07:34 Tobacco use type Cigarette 05/16/23 07:34 e-Cigarette/Vaping Use Never Used 05/16/23 07:34 Thrive Assessment: Date of Thrive Assessment Date Thrive assessed 08/28/22 05/16/23 07:34 Const General: cooperative Orientation/consciousness: patient oriented x3 Neuro General: patient oriented x3 Psych Appearance: grossly normal Mental Status: mental status grossly normal Speech and movement: Clear speech present Affect: normal affect Attitude: cooperative Thought process: Normal thought process present Thought content: Normal thought content present Insight: Good insight present (Psych) Judgement: Good judgement present (Psych) Telehealth Telehealth Location of provider rendering services: practice address Location of patient: address on file Patient Identification confirmed using: Name, : Yes Telehealth method: voice only Patient verbally consented to treatment: Yes Patient verbally consented to billing insurance company: Yes Patient informed of any privacy concerns related to visit: Yes Minutes spent on Phone/Video with Pt.: 10 Assessment and Plan Assessment & Plan (1) Hand pain: Code(s): M79.643 - Pain in unspecified hand Plan: XR ordered Plan The patient agreed to the use of a medical support assistant for this encounter. Scribed for ITZEL Ballesteros by Trina Kemp medical support assistant, on 05/16/2023 at 07:30 EST. Orders: Orders XR hand LT 2V Today M79.643 - Pain in unspecified hand Coding Level of Care Code Tele Est Pt Level 3 (08211) Diagnoses Hand pain M79.643
== END 2023-05-16 15:08 | disposition home or self-care (01) ==
LOC: HO.HMGC 07:14
PROVIDERS: PCP Nurse Practitioner Family; Visit Provider Nurse Practitioner Family
DX: M79.642 Pain in left hand (principal)
CPT/HCPCS: 99441

== ENCOUNTER 2023-05-16 12:40 | Outpatient (REF) | payer MEDICARE, SELFPAY ==
--- NOTE | ~2023-05-16 | XR_ITS ---
EXAMINATION: XR HAND, LEFT CLINICAL INFORMATION: Pain of left hand COMPARISON: None available. TECHNIQUE: PA, lateral, and oblique views of the left hand. FINDINGS: Bones have normal alignment in the hand and wrist. No acute fracture or subluxation. No evidence of chondrocalcinosis at the wrist. A geographic 0.5 cm cystic lucency is seen at the base of the ulnar styloid. No erosions. The ulnocarpal and radiocarpal joint spaces are maintained. Also, joint spaces of the wrist and metacarpophalangeal joints are well-preserved. There are osteophytes and subarticular cystlike changes at several interphalangeal joints, including thumb interphalangeal joint and 2nd - 4th proximal interphalangeal joints. No focal soft tissue swelling. XR/XR hand LT 2V IMPRESSION: * No acute abnormalities. No fracture or subluxation in the left hand or wrist. 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
== END 2023-05-16 12:41 | disposition home or self-care (01) ==
LOC: HO.HMGCX 12:40
PROVIDERS: PCP Nurse Practitioner Family; Visit Provider Nurse Practitioner Family
DX: M79.643 Pain in unspecified hand (principal)
CPT/HCPCS: 73120

== ENCOUNTER 2023-06-29 06:44 | Outpatient (REF) | payer MEDICARE, SELFPAY ==
[2023-06-29 10:15] LABS: Appearance Urine Clear; Color Urine Yellow; Glucose Urine UA Negative (Negative); Leukocyte Esterase Urine Negative (Negative); Nitrite Urine Negative (Negative); Urine Blood Negative (Negative); Urine Ketones Negative (Negative); Urine Protein Negative (Neg-Trace)
[2023-06-29 10:58] LABS: Alanine Aminotransferase 21 U/L (0-40); Alkaline Phosphatase 79 U/L (39-117); Anion Gap 13 (12-20); Aspartate Amino Transferase 17 U/L (5-37); Bilirubin Total 0.3 mg/dL (0.0-1.0); Blood Urea Nitrogen 16 mg/dL (9-16); Calcium 9.2 mg/dL (8.4-10.2); Carbon Dioxide 24 mmol/L (22-29); Chloride 106 mmol/L (96-108); Cholesterol 186 mg/dL (<200); Estimated Glomerular Filt Rate > 60; Glucose Fasting 93 mg/dL (60-99); HDL Cholesterol 44 mg/dL (>40); LDL Cholesterol Calculated 115 mg/dL (<100); Potassium 4.3 mmol/L (3.3-5.1); Sodium 139 mmol/L (135-145); Total Protein 7.2 g/dL (6.5-8.0); Triglycerides 138 mg/dL (<150)
== END 2023-06-29 06:45 | disposition home or self-care (01) ==
LOC: HO.HMGCLDS 06:44
PROVIDERS: PCP Nurse Practitioner Family; Visit Provider Nurse Practitioner Family
DX: Z00.00 Encounter for general adult medical examination without abnormal findings (principal); E78.5 Hyperlipidemia, unspecified
CPT/HCPCS: 36415; 80053; 80061; 81003

== ENCOUNTER 2023-07-25 07:44 | Outpatient (AMB) | payer MEDICARE, SELFPAY ==
--- NOTE | 2023-07-25 08:14 | A.OFFVIS_ITS ---
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 States pain is mainly on the volar aspect of the wrist and it radiate to his palm of the hand. Having off an on numbness on his MF, RF and pinky finger. 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 He complains of numbness in the left middle, ring, and small fingers. Symptoms intermittent, primarily every night. He also complains of weakness in his hand with gripping or making a fist. He denies any numbness during activities, he says he has an exercise ball he uses, and he often does not use his hand or gripping activities due to weakness. He says he feels like he is being poked with a needle at times. He says he occasionally sleeps on his arms and things this may have caused it. He wears a brace at night which he says helps him avoid sleeping on his hand. He also complains of pain in his left wrist, which he feels radiate into his palm, worse with gripping activities. he says he has known hand OA, as well as OA in multiple other joints. He denies any locking, or catching. He has a hx of prostate cancer. He says he has numbness developing in his arms and a hx of a neck injury resulting in DDD. [facility] Medical History History of prostate cancer Hyperparathyroidism Vitamin D deficiency History of hyperparathyroidism Adrenal adenoma Obesity (BMI 30.0-34.9) Dilatation of aorta Liver cyst Personal history of nicotine dependence Renal cyst, left Dyslipidemia Primary hyperparathyroidism Adrenal nodule Hypercalcemia Surgical History Hx of prostate biopsy History of tonsillectomy History of parathyroidectomy History of esophagogastroduodenoscopy (EGD) History of colonoscopy Family History Brother Myocardial infarct Social History Alcohol intake: current Alcohol intake frequency: 0-2 drinks per day Alcohol type: beer Patient Tobacco Use Status: Current everyday Tobacco user Tobacco use type: Cigarette Cigarettes Per Day: 10 Years Smoked: onset 14, 1ppd x 52yrs, 50PYH e-Cigarette/Vaping Use: Never Used Second Hand Smoke Exposure: Yes service: No Current occupational status: retired 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[employer] Review of Systems Const All systems reviewed & are unremarkable except as noted in HPI and below Physical Exam Vital Signs: BMI result Body Mass Index 31.0 Const General: cooperative, healthy appearing and no acute distress Orientation/consciousness: patient oriented x3 HEENT Head: Yes normocephalic and Yes atraumatic Eyes EOM: EOMs intact bilaterally Resp Effort & Inspection: normal respiratory effort and able to speak in complete sen tences Cardio Jugular venous distension: no JVD Skin General skin exam: turgor normal Rashes: no rashes Neuro General: patient oriented x3 Extrem Other: Evaluation of Left Upper Extremity: The patient is alert, oriented, and in no acute distress Neuro: Median, Ulnar, Radial nerves motor and sensory intact and sensation is normal to the tips of all digits today in clinic No thenar or intrinsic wasting Good APB muscle belly firing and good finger cross Vascular: Cap refill brisk ROM: He can make a fist and extend all his digits Full and symmetrical pronosupination No locking or catching Skin: No lacerations or abrasions. General: No Ecchymosis. No Erythema or evidence of infection. Mild tenderness over the 1st dorsal compartment Negative Venancio test Radiographs: 3 views of the left hand from 05/16/23 were reviewed by me today in clinic. They show no fractures or dislocations. There are some arthritic changes in the index middle and ring finger PIP joints with some periarticular cysts. He is also got some early D IP joint osteoarthritis. Psych Appearance: grossly normal Affect: normal affect Attitude: cooperative Assessment & Plan Assessment & Plan (1) Numbness and tingling in left hand: Code(s): R20.0 - Anesthesia of skin; R20.2 - Paresthesia of skin (2) Stiffness of left hand joint: Code(s): M25.642 - Stiffness of left hand, not elsewhere classified Plan Assessment & Plan: 1. Left hand numbness In the middle finger & ulnar nerve distribution Symptoms intermittent, but daily, worse at night I ordered a NCS to assess for peripheral nerve compression He will follow up when completed for review 2. Left hand stiffness I educated him about this condition His motion is good at this time as he performs exercises at home I discussed activity modification, he should work on daily ROM exercises at home, and he should stop using his exercise squeeze ball for his exercises I also discussed the use of assistive gadgets, and he should be mindful to not overuse his hands with activities if possible Scribed for Ema Ying MD by Rajat Hyman, medical assistant dermatology, on 07/25/23 at 8:55 AM, EST. Orders: Orders NE nerve conduction velocity Today R20.0 - Anesthesia of skin, R20.2 - Paresthesia of skin Coding Level of Care Code New Pt Level 3 (16154) Diagnoses Numbness and tingling in left hand R20.0; R20.2 Stiffness of left hand joint M25.642
[2023-07-25 08:20] VITALS: BMI 31.0
== END 2023-07-25 09:14 | disposition home or self-care (01) ==
PROVIDERS: PCP Nurse Practitioner Family; Visit Provider Orthopaedic Surgery
DX: R20.0 Anesthesia of skin (principal); R20.2 Paresthesia of skin; M25.642 Stiffness of left hand, not elsewhere classified
CPT/HCPCS: 99203

== ENCOUNTER → 2023-07-25 07:44 | Outpatient (BNVA) | payer MEDICARE, SELFPAY | PROVIDERS: PCP Nurse Practitioner Family; Visit Provider Orthopaedic Surgery | DX: R20.0 Anesthesia of skin (principal); R20.2 Paresthesia of skin; M79.641 Pain in right hand; M25.642 Stiffness of left hand, not elsewhere classified | CPT/HCPCS: 99202 ==

== ENCOUNTER 2023-08-10 08:33 | Outpatient (REF) | payer MEDICARE, SELFPAY ==
--- NOTE | 2023-08-10 | EMG_ITS ---
Chief complaint: Left hand is hanging/tingling, on and off Reason for referral: Evaluate for Carpal Tunnel Syndrome Referred by: Dr. Ying Procedure done: Left upper extremity NCS/EMG Precautions and/or limitations: None The limb temperature was monitored continuously and remained between 32-36 degrees C during the performance of the NCS. Nerve Conduction Studies Anti Sensory Summary Table ?Stim Site NR Onset (ms) Norm Onset (ms) Peak (ms) Norm Peak (ms) O-P Amp (?V) Norm O-P Amp Site1 Site2 Delta-0 (ms) Dist (cm) Sanjeev (m/s) Norm Sanjeev (m/s) Left Median Anti Sensory (2nd Digit) Wrist ? 3.0 4.0 <3.6 12.7 >10 Wrist 2nd Digit 3.0 14.0 47 Left Ulnar Anti Sensory (5th Digit) Wrist ? 2.3 2.9 <3.7 6.4 >15.0 Wrist 5th Digit 2.3 14.0 61 Motor Summary Table ?Stim Site NR Onset (ms) Norm Onset (ms) O-P Amp (mV) Norm O-P Amp iAmp (mV) Amp (1st) (%) Site1 Site2 Delta-0 (ms) Dist (cm) Sanjeev (m/s) Norm Sanjeev (m/s) Left Median Motor (Abd Poll Brev) Wrist ? 3.5 <3.9 8.0 >4.5 9.1 100.0 Elbow Wrist 4.6 23.0 50 >45 Elbow ? 8.1 7.0 7.8 87.5 Left Ulnar Motor (Abd Dig Minimi) Wrist ? 2.7 <3.0 7.0 >5 8.8 100.0 B Elbow Wrist 3.9 21.0 54 >45 B Elbow ? 6.6 5.6 7.1 80.0 A Elbow B Elbow 1.2 10.0 83 >45 A Elbow ? 7.8 5.4 7.0 77.1 Comparison Summary Table ?Stim Site NR Peak (ms) Norm Peak (ms) P-T Amp (?V) Site1 Site2 Delta-P (ms) Norm Delta (ms) Left Median/Radial Dig I Comparison (Digit 1 - 10cm) Median ? 3.6 <2.9 767.7 Median Radial 0.9 Radial ? 2.7 <2.8 9.0 EMG ?Side Muscle Nerve Root Ins Act Fibs Psw Amp Dur Poly Recrt Int Pat Comment Left 1stDorInt Ulnar C8-T1 Nml Nml Nml Nml Nml 0 Nml Complete Left FlexCarRad Median C6-7 Nml Nml Nml Nml Nml 0 Nml Complete Left Biceps Musculocut C5-6 Nml Nml Nml Nml Nml 0 Nml Complete Left Triceps Radial C6-7-8 Nml Nml Nml Nml Nml 0 Nml Complete Left Deltoid Axillary C5-6 Nml Nml Nml Nml Nml 0 Nml Complete FINDINGS: Left median sensory nerve showed prolonged peak latency. Significant interlatency difference seen between left median and radial sensory nerves. All other nerves tested were within normal. Concentric needle EMG was performed in selected muscles of the left upper extremity. Study did not reveal signs of electric abnormalities as shown in the table below. IMPRESSION: 1. This is an abnormal study. 2. There is electrodiagnostic evidence for left mild median neuropathy at the wrist, consistent with carpal tunnel syndrome. 3. There is no electrodiagnostic evidence for ulnar neuropathy, brachial plexopathy, or cervical radiculopathy. Thank you for your kind referral. Suad Teixeira MD, [facility] Board Certified, [place] Board [employer] and Rehabilitation (ABPMR) Board Certified, [place] Board of Electrodiagnostic Medicine (ABEM) [place] [id number] [facility]
== END 2023-08-10 08:34 | disposition home or self-care (01) ==
LOC: HO.NEURO 08:33
PROVIDERS: PCP Nurse Practitioner Family; Visit Provider Orthopaedic Surgery
DX: R20.0 Anesthesia of skin (principal); R20.2 Paresthesia of skin
CPT/HCPCS: 95886; 95909

== ENCOUNTER → 2023-08-10 08:37 | Outpatient (BNV) | payer MEDICARE, SELFPAY | PROVIDERS: PCP Nurse Practitioner Family; Visit Provider Physical Medicine & Rehabilitation | DX: G56.02 Carpal tunnel syndrome, left upper limb (principal); G56.12 Other lesions of median nerve, left upper limb | CPT/HCPCS: 95886; 95909 ==

== ENCOUNTER 2023-09-03 07:17 | Outpatient (REF) | payer MEDICARE, SELFPAY ==
[2023-09-03 11:55] LABS: PSA,Total (Free>4and<10) 5.33 ng/mL (0.00-4.00)
[2023-09-06 12:48] LABS: Free Prostate Spec Ag 0.2 ng/mL; Percent Free Prostate Spec Ag 4 % (calc) (>25); Prostate Specific Ag Total 4.8 ng/mL (< OR = 4.0)
== END 2023-09-03 07:18 | disposition home or self-care (01) ==
LOC: HO.HMGCLDS 07:17
PROVIDERS: PCP Nurse Practitioner Family; Visit Provider Urology
DX: Z12.5 Encounter for screening for malignant neoplasm of prostate (principal); C61 Malignant neoplasm of prostate
CPT/HCPCS: 36415; 84153; 84154

== ENCOUNTER 2023-09-11 11:34 | Outpatient (AMB) | payer MEDICARE, SELFPAY ==
--- NOTE | 2023-09-11 11:55 | A.OFFVIS_ITS ---
Intake Visit Reasons: 4M PSA(set)Confirmed Intake Note: Patient is Present for Follow Up PSA Urology Medication:Finasteride Antibiotic Allergies: Sulfa Blood Thinners:None Allergies Sulfa (Sulfonamide Antibiotics) Allergy (Intermediate, Verified 07/25/23 08:20) rash HPI Comments Details: Leif is a pleasant male. He is a patient of Dr. Wright. He is seen for the following urologic conditions - microscopic hematuria - elevated PSA - prostate cancer Plan for targeted biopsy Discussed process Prostate cancer - Grade Group 1 - 02/25 Current therapy active surveillance 06/29 PSA 5, 11/26 3.6, 08/28 4.8 4% Diagnosed by Dr. Barlow 02/25 Elevated PSA 5.5 US 30gm Histologic grade: Dara score: 3+3=6 Number cores positive: 5 (two more suspicious) LBL 5%, GERALDINE 50%, RBM 5%, RML 5%, RMM 30% % of tissue involved: 5-10% of all tissue examined Periprostatic fat inv, Seminal vesicle inv, Perineural inv, LVI: Not identified Total % - Staging 03/28 - MRI left anterior peripheral 8mm Pi-RADS 5 Microscopic Hematuria: Initial evaluation 2020 Microscopic hematuria was diagnosed during routine UA - atypical cells on evaluation. They are here for follow-up evaluation Since the last visit the patient has has not noticed gross hematuria. Relevant medical history for no pertinent medical history. 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 - 01/24 fish negative Therapeutic plan - Follow in 4 months on PSA PFSH Medical History History of prostate cancer Hyperparathyroidism Vitamin D deficiency History of hyperparathyroidism Adrenal adenoma Obesity (BMI 30.0-34.9) Dilatation of aorta Liver cyst Personal history of nicotine dependence Renal cyst, left Dyslipidemia Primary hyperparathyroidism Adrenal nodule Hypercalcemia Surgical History Hx of prostate biopsy History of tonsillectomy History of parathyroidectomy History of esophagogastroduodenoscopy (EGD) History of colonoscopy Family History Brother Myocardial infarct Social History Alcohol intake: current Alcohol intake frequency: 0-2 drinks per day Alcohol type: beer Patient Tobacco Use Status: Current everyday Tobacco user Tobacco use type: Cigarette Cigarettes Per Day: 10 Years Smoked: onset 14, 1ppd x 52yrs, 50PYH e-Cigarette/Vaping Use: Never Used Second Hand Smoke Exposure: Yes service: No Current occupational status: retired 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[employer] Review of Systems Const Denies chills and Denies fever(s) Card Reports no additional complaints and Denies syncope Resp Denies cough GI Denies abdominal pain and Denies heartburn Reports as per HPI and Denies change in libido Neuro Denies syncope Psych Denies change in libido Endo Denies change in libido Physical Exam Const General: cooperative, healthy appearing, comfortable and no acute distress Orientation/consciousness: patient oriented x3 HEENT Face and sinus: Yes normal facial exam Mouth: moist mucous membranes Neck Neck: Yes normal visual inspection, Yes full ROM and Yes trachea midline Chest Chest palpation & inspection: normal inspection of the chest Resp Effort & Inspection: normal respiratory effort, able to speak in complete sentences and no respiratory distress GI Inspection: Yes normal to inspection Back/Spine/Pelvis Cervical Spine: normal cervical lordosis Thoracic/Lumbar Spine: thoracic and lumbar spine normal to inspection Skin General skin exam: no rashes or lesions noted Neuro General: patient oriented x3, gait normal, tone normal and moves all extremities Extrem General: Yes normal to inspection and Yes capillary refill normal Assessment & Plan Assessment & Plan (1) Prostate cancer: Comment: 02/2522 Grade Group 1 - 5 cores Code(s): C61 - Malignant neoplasm of prostate Category: Medical Plan Risks, benefits and alternatives to therapy were discussed. These include but are not limited to infection, bleeding, damage to local organs and tissues, need for further interventions. Anesthetic risks regarding cardiac arrhythmia, blood clots, and potential mortality were discussed. The patient understands the typical recovery time and the outpatient nature of the procedure. After consideration of these risks the patient gives full informed consent and they wish to move ahead with the procedure. Plan for targeted prostate biopsy Patient Instructions: Imaging studies, laboratory and physical exam results were discussed and reviewed in detail. No major barriers to patient understanding were identified. An opportunity to ask questions regarding the treatment plan was provided. All questions were answered. The patient expressed understanding and agreement with the above treatment plan. The patient is aware they should contact our office by phone for worsening of their current condition or the appearance of new urologic symptoms. Compliance is encouraged with any medications and followup testing that is ordered. It is a privilege to participate in the urologic care of your patient. If you have any questions or concerns regarding treatment for the above conditions, or other urologic issues, please do not hesitate to contact me. The office telephone contact is [phone]. This note is constructed using voice recognition software. While every effort has been made to ensure accuracy jewelry model maker errors may have been included. Yours sincerely, Dr Fernando Barlow MD, [facility] - Urology Providers of Expert, Compassionate Care for the Genitourinary System Coding Level of Care Code Est Pt Level 4 (64688) Diagnoses Prostate cancer C61
== END 2023-09-11 12:36 | disposition home or self-care (01) ==
PROVIDERS: PCP Nurse Practitioner Family; Visit Provider Urology
DX: C61 Malignant neoplasm of prostate (principal)
CPT/HCPCS: 99214

== ENCOUNTER → 2023-09-11 11:34 | Outpatient (BNVA) | payer MEDICARE, SELFPAY | PROVIDERS: PCP Nurse Practitioner Family; Visit Provider Urology | DX: R31.29 Other microscopic hematuria (principal); C61 Malignant neoplasm of prostate | CPT/HCPCS: 99212 ==

== ENCOUNTER 2024-02-11 09:41 | Outpatient (AMB) | payer MEDICARE, SELFPAY ==
[2024-02-11 09:44] VITALS: BP 114/70; PULSE 75; BMI 30.9
--- NOTE | 2024-02-11 09:44 | A.OFFVIS_ITS ---
Vital Signs 02/11/24 09:44 Height 5 ft 11 in Weight 221 lb 9.033 oz BMI 30.9 BP 114/70 Blood Pressure Location Lt brachial Position Sitting Pulse 75 Pulse Source Pulse Oximeter Intake Visit Reasons: f/u Adrenal/hyperparathyroidism-lvm Intake Note: Patient present today for Adrenal/hyperparathyroidism office visit. 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 He was last seen on 09/25/[address] Yanez 1) Primary Hyperparathyroidism: He was first noted to have high calcium in April of 2018. Total calcium was checked at that time and was found to be 10.6. This was repeated and was the same. He subsequently underwent further evaluation and was found to have PTH dependent hypercalcemia with a PTH of 91, and a total calcium of 10.2. Vitamin D was mildly deficient at 25.6. He was drinking half a gallon of milk per day, but has since stopped this. He had a DXA which ruled out osteoporosis. He was referred to Dr. Underwood and underwent a parathyroidectomy 04/29/2019 with resection of his right upper pole parathyroid gland. His intraoperative PTH declined from 74 to 12. He was subsequently lost to F/U and has not had repeat serum biochemical testing. Repeat urinary calcium was mildly elevated. 2) L adrenal adenoma: Had a CT abdomen/pelvis for assessment for renal stones with incidental finding of a 3.4 cm L adrenal nodule. This was apparently evident in 2010 and has not significantly increased in size. This does have an area of high HU of 20, which is concerning. He denies any spells concerning for pheochromocytoma. He denies any family history of any cancers. He is currently not on a blood thinner medication. There was mention of a L renal lesion measuring 1.4 cm that has grown in size from 2010. He is following regularly with Urology. He did have a full biochemical workup completed in 2018 which was all WNL. Repeat serum and urine testing was again WNL in 2022, but 1 mg overnight DSST is pending at this time. He was subseuqently lost to F/U and had a CT scan 07/2021 for lung cancer screening which redemonstrated his L adrenal lesion. There was also mention of a 4.4 cm hypodensity within the liver. He is following with GI for this. He did have an MRI of the abdomen 07/11/2022 which demonstrated a 2.7 cm L adrenal lesion with signal dropout on out of phase imaging which is consistent with a benign adenoma. He was referred to Dr. Underwood to discuss a L adrenalectomy given the high HU on CT imaging. Per Dr. Underwood's note he feels this nodule has been stable since 2010 and with signal dropout on out of phase imaging on his recent MRI, likely represents a benign lesion and surgery is not recommended at this time. He also mentions fullness in his L ear and occasional drainage which has been occuring for 2 years time. He otherwise has no complaints today and states he feels well. He will be undergoing ankle surgery and is being worked up for prostate cancer. CT Lun07/29/2021 FINDINGS: LUNGS: The lungs are well expanded and clear of acute pneumonic process. There are no pulmonary nodules, mass or consolidation. There are minimal atelectatic changes in the right middle lobe and left lower lobe. MEDIASTINUM: Both thyroid lobes are symmetric and normal. The central trachea and the bronchi are widely patent. The heart size and the great vessels are normal caliber. There are small shotty lymph nodes in the aortic window and para-aortic space. There is no pericardial effusion. There are coronary artery calcifications in the pericardium. PLEURA: There is no pleural effusion. No pleural mass or thickening.? AXILLA: No abnormal lymph nodes in the axilla. The chest wall is unremarkable.? UPPER ABDOMEN: The liver is homogeneous in density and normal size. There is 4.4 cm hypodensity right hepatic lobe. No additional lesion seen. There is a 3 cm lesion left adrenal gland measuring 20 Hounsfield units. Likely adenoma.? OSSEOUS STRUCTURES: There is moderate spondylosis dorsal and lumbar spine. No lytic or sclerotic process seen.? CT/CT lung screening IMPRESSION: Minimal atelectatic changes. No pulmonary nodule or mass. Reactive mediastinal lymph nodes largest measuring 7 mm in short axis. ? Most likely left adrenal adenoma. ? Right hepatic lobe cyst. ? MRI Abdomen: 07/11/2022 FINDINGS: LUNG BASES: The visualized lung bases are unremarkable.? LIVER, GALLBLADDER, AND BILIARY TREE: The liver is normal in size, smooth in contour, and normal in signal. No biliary ductal dilatation. There are multiple T2 bright lesions in the liver, appearing T1 dark. There is no enhancement on postcontrast imaging. These are consistent with cysts. The largest is seen in segment 5 with a lobulated Contour. This measures 4.4 x 4.5 cm. There is a 2.5 cm cyst in the caudate adjacent to the IVC. Multiple additional smaller cysts are seen throughout the liver. No suspicious liver mass. The gallbladder is unremarkable with no evidence of gallbladder wall thickening, or obvious pericholecystic inflammatory changes.? PANCREAS: Unremarkable.? SPLEEN: Normal.? ADRENAL GLANDS: Normal appearing right adrenal gland. There is a left adrenal gland mass again identified. This measures 2.8 x 2.7 cm. There is signal dropout on out of phase imaging, consistent with an adenoma. Previous washout imaging on CT was indeterminate.? KIDNEYS AND URETERS: The kidneys are normal in size, shape, and enhance symmetrically.? No hydronephrosis.? No perinephric stranding. Simple cyst at the midpole of the left kidney. No specific follow-up recommended.? GASTROINTESTINAL TRACT: No bowel obstruction.? No ascites or fluid collection. ? ABDOMINAL WALL: No significant hernia is appreciated.? LYMPH NODES: No lymphadenopathy. VASCULAR: Atherosclerotic disease of the aorta. OSSEOUS STRUCTURES: Marrow signal normal. Degenerative change throughout the spine. Labs: Laboratory Tests 03/28/22 03/28/22 03/28/22 08:51 08:51 08:51 Creatinine 0.81 Estimated GFR > 60 Renin Aldosterone 29 25-OH Vitamin D Total 33.2 DHEA Sulfate 63 Random Cortisol ACTH 15 Plas Tot Catecholamine Dopamine Epinephrine Norepinephrine Plasma Free Metaneph Plasma Free Normeta Plas Total Metaneph Ur 24 Hour Volume Ur Creatinine 24 Hour Ur Calcium 24 Hr Ur Free Cortisol 24 Hr Ur Epinephrine 24 Hr U Norepinephrine 24 Hr U Free Metanephrine U Normetanephrine 24h U Tot Metanephrine 24h Ur Dopamine 24 Hr U Tot Catecholamine 24h Ur Aldosterone 24 Hr 03/28/22 03/28/22 03/28/22 08:51 08:51 08:51 Creatinine Estimated GFR Renin 3.47 Aldosterone 25-OH Vitamin D Total DHEA Sulfate Random Cortisol 9.1 ACTH Plas Tot Catecholamine Dopamine Epinephrine Norepinephrine Plasma Free Metaneph 37 Plasma Free Normeta 151 H Plas Total Metaneph 188 Ur 24 Hour Volume Ur Creatinine 24 Hour Ur Calcium 24 Hr Ur Free Cortisol 24 Hr Ur Epinephrine 24 Hr U Norepinephrine 24 Hr U Free Metanephrine U Normetanephrine 24h U Tot Metanephrine 24h Ur Dopamine 24 Hr U Tot Catecholamine 24h Ur Aldosterone 24 Hr 03/28/22 04/04/22 04/04/22 08:51 08:00 08:00 Creatinine Estimated GFR Renin Aldosterone 25-OH Vitamin D Total DHEA Sulfate Random Cortisol ACTH Plas Tot Catecholamine 965 Dopamine 35 H Epinephrine <20 Norepinephrine 930 Plasma Free Metaneph Plasma Free Normeta Plas Total Metaneph Ur 24 Hour Volume 2750 Ur Creatinine 24 Hour Ur Calcium 24 Hr 316 H Ur Free Cortisol 24 Hr Ur Epinephrine 24 Hr U Norepinephrine 24 Hr U Free Metanephrine 112 U Normetanephrine 24h 512 U Tot Metanephrine 24h 624 Ur Dopamine 24 Hr U Tot Catecholamine 24h Ur Aldosterone 24 Hr 11.6 04/04/22 04/04/22 08:00 08:00 Creatinine Estimated GFR Renin Aldosterone 25-OH Vitamin D Total DHEA Sulfate Random Cortisol ACTH Plas Tot Catecholamine Dopamine Epinephrine Norepinephrine Plasma Free Metaneph Plasma Free Normeta Plas Total Metaneph Ur 24 Hour Volume Ur Creatinine 24 Hour 1.70 Ur Calcium 24 Hr Ur Free Cortisol 24 Hr 29.5 Ur Epinephrine 24 Hr see note U Norepinephrine 24 Hr 43 U Free Metanephrine U Normetanephrine 24h U Tot Metanephrine 24h Ur Dopamine 24 Hr 143 U Tot Catecholamine 24h 43 Ur Aldosterone 24 Hr No sx of pheo. No sx of [place] PFSH Medical History History of prostate cancer Hyperparathyroidism Vitamin D deficiency History of hyperparathyroidism Adrenal adenoma Obesity (BMI 30.0-34.9) Dilatation of aorta Liver cyst Personal history of nicotine dependence Renal cyst, left Dyslipidemia Primary hyperparathyroidism Adrenal nodule Hypercalcemia Surgical History Hx of prostate biopsy History of tonsillectomy History of parathyroidectomy History of esophagogastroduodenoscopy (EGD) History of colonoscopy Family History Brother Myocardial infarct Social History Alcohol intake: current Alcohol intake frequency: 0-2 drinks per day Alcohol type: beer Patient Tobacco Use Status: Current everyday Tobacco user Tobacco use type: Cigarette Cigarettes Per Day: 10 Years Smoked: onset 14, 1ppd x 52yrs, 50PYH e-Cigarette/Vaping Use: Never Used Second Hand Smoke Exposure: Yes service: No Current occupational status: retired 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 Physical Exam Const Other: Absence of cushingoid features Assessment & Plan Assessment & Plan (1) Adrenal nodule: Comment: (left adrenal nodule 3.4 x 2.8cm - on 10/[address] - also noted on 07/[address]) Code(s): E27.8 - Other specified disorders of adrenal gland Category: Medical Plan: This 69-year-old white male with a history of left adrenal adenoma with MRI characteristics suggestive of benign adenoma. He had a workup done for hypersecretion which was negative. Plan is to repeat a 1 mg dexamethasone suppression test (2) Hyperparathyroidism: Code(s): E21.3 - Hyperparathyroidism, unspecified Category: Medical Plan: Status post parathyroid surgery with normalization of calcium and PTH. No need for any further endocrine workup or follow-up for this Orders: Orders Cortisol Random Today D35.02 - Benign neoplasm of left adrenal gland Medications: New dexamethasone 1 mg PO ONCE 1 tab 0RF Coding Level of Care Code Est Pt Level 3 (26387) Diagnoses Adrenal nodule E27.8 Hyperparathyroidism E21.3
== END 2024-02-11 10:06 | disposition home or self-care (01) ==
PROVIDERS: PCP Nurse Practitioner Family; Visit Provider Internal Medicine Endocrinology, Diabetes & Metabolism
DX: E27.8 Other specified disorders of adrenal gland (principal); E21.3 Hyperparathyroidism, unspecified
CPT/HCPCS: 99213

== ENCOUNTER → 2024-02-11 09:41 | Outpatient (BNVA) | payer MEDICARE, SELFPAY | PROVIDERS: PCP Nurse Practitioner Family; Visit Provider Internal Medicine Endocrinology, Diabetes & Metabolism | DX: E27.8 Other specified disorders of adrenal gland (principal); E21.3 Hyperparathyroidism, unspecified | CPT/HCPCS: 99212 ==

== ENCOUNTER 2024-02-25 09:25 | Outpatient (AMB) | payer MEDICARE, SELFPAY ==
--- NOTE | 2024-02-25 09:26 | MHC.PC.OV ---
Vital Signs 02/25/24 09:27 Height 5 ft 11 in Weight 222 lb BMI 31.0 BP 126/80 Blood Pressure Location Lt brachial Position Sitting Pulse 78 Pulse Source Pulse Oximeter Pulse Oximetry (%) 98 Oxygen Delivery Method Room Air Intake Visit Reasons: 1 year f/u Allergies Sulfa (Sulfonamide Antibiotics) Allergy (Intermediate, Verified 02/25/24 09:27) rash Medication List - Last Reconciled 02/25/24 by ITZEL Chandler finasteride 5 mg PO DAILY 90 days Tobacco use date assessed: 02/25/24 Fall risk assessment: No Falls in past year Last assessed Fall Risk: 02/25/24 Dental Screening Dental Screen Date: 02/25/24 Did you have a dental visit in the last 12 months?: Yes Did you have a dental problem in the last 6 months where you did not have access to dental care?: No Was dental information given to patient?: Patient has dentist HPI 1 year f/u HPI Details HTN: Blood pressure is stable. Denies chest pain, shortness of breath, headache, dizziness, and blurred vision. Pt c/o increased fatigue. Will order further labs. Pt does smoke. Refuses sleep study. Seeing urology this week. Colon screen is up to date [facility] Medical History History of prostate cancer Hyperparathyroidism Vitamin D deficiency History of hyperparathyroidism Adrenal adenoma Obesity (BMI 30.0-34.9) Dilatation of aorta Liver cyst Personal history of nicotine dependence Renal cyst, left Dyslipidemia Primary hyperparathyroidism Adrenal nodule Hypercalcemia Surgical History Hx of prostate biopsy History of tonsillectomy History of parathyroidectomy History of esophagogastroduodenoscopy (EGD) History of colonoscopy Family History Brother Myocardial infarct Social History Housing: House Alcohol intake: current Alcohol intake frequency: 0-2 drinks per day Alcohol type: beer Patient Tobacco Use Status: Current everyday Tobacco user Tobacco use type: Cigarette Cigarettes Per Day: 10 Years Smoked: onset 14, 1ppd x 52yrs, 50PYH e-Cigarette/Vaping Use: Never Used Second Hand Smoke Exposure: Yes service: No Current occupational status: 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 1. Little interest or pleasure in doing things: not at all 2. Feeling down, depressed, or hopeless: not at all 3. Trouble falling or staying asleep, or sleeping too much: not at all 4. Feeling tired or having little energy: not at all 5. Poor appetite or overeating: not at all 6. Feeling bad about yourself - or that you are a failure or have let yourself or your family down: not at all 7. Trouble concentrating on things, such as reading the newspaper or watching television: not at all 8. Moving or speaking so slowly that other people could have noticed. Or the opposite - being so fidgety or restless that you have been moving around a lot more than usual: not at all 9. Thoughts that you would be better off or of hurting yourself in some way: not at all Total score: 0 Depression Screening Interpretation: Negative Depression Screening Done: Yes 82780 - PHQ-9 Billing: Yes Source: Developed by Drs. Rakesh Wray, Paula Ragland, Jeromy Mckeon and colleagues, with an educational emily from [employer]. Thrive Questionnaire Date Thrive assessed: 02/25/24 I am a: Patient What is your living situation today?: I have a steady place to live Within the past 12 months, did the food you bought not last and you didn't have the money to get more?: I choose not to answer this question Within the past 12 months, did you worry whether your food would run out before you got money to buy more?: I choose not to answer this question Do you have trouble paying for medicines?: I choose not to answer this question Do you have trouble getting transportation to medical appointments?: I choose not to answer this question Do you have trouble paying your heating and electricity bill?: I choose not to answer this question Do you have trouble taking care of your child, family member or friend?: I choose not to answer this question Do you have trouble with day-to-day activities such as bathing, preparing meals, shopping, managing finances, etc.?: I choose not to answer this question Are you currently unemployed and looking for a job?: I choose not to answer this question Are you interested in more education?: I choose not to answer this question Please select the resources that you would like help with: None Currently or been in a relationship where the following occur: I choose not to answer THRIVE Score: 0 AUDIT C Alcohol Use Questionnaire (AUDIT-C) 1. How often do you have a drink containing alcohol?: Never 3. How often do you have six or more drinks on one occasion?: Never Total Score: 0 Score Reviewed/Action Taken: Yes LUIS-7 AMB Questionnaire LUIS-7 Date LUIS - 7 assessed: 02/25/24 Feeling nervous, anxious, or on edge: 0 = Not at all Not being able to stop or control worryin = Not at all Worrying too much about different things: 0 = Not at all Trouble relaxin = Not at all Being so restless that it is hard to sit still: 0 = Not at all Becoming easily annoyed or irritable: 0 = Not at all Feeling afraid as if something awful might happen: 0 = Not at all Total ULIS-7 score (0-4 normal; 5-9 mild; 10-14 moderate; 15-21 severe): 0 Source: Developed by Drs. Rakesh Wray, Paula Ragland, Jeromy Mckeon and colleagues, with an educational emily from [employer]. LUIS-7 Assessment Billing LUIS-7 Assessment Tool: LUIS-7 Assessment 40472 Review of Systems Const Reports as per HPI Physical exam (Primary Care) Vital Signs: Last Vital Signs Pulse 78 02/25/24 09:27 BP 126/80 02/25/24 09:27 Pulse Ox 98 02/25/24 09:27 Oxygen Delivery Method Room Air 02/25/24 09:27 BMI result Body Mass Index 31.0 Tobacco/Smoking Status: Tobacco use Status Tobacco use date assessed 02/25/24 02/25/24 09:31 Patient Tobacco Use Status Current everyday Tobacco 02/25/24 09:31 Tobacco use type Cigarette 02/25/24 09:31 e-Cigarette/Vaping Use Never Used 02/25/24 09:31 PHQ-9: PHQ-9 Score PHQ-9: Total score 0 02/25/24 09:31 Depression Screening Interpretation: Negative Thrive Assessment: Date of Thrive Assessment Date Thrive assessed 02/25/24 02/25/24 09:31 Currently or been in a relationship where the following occur: I choose not to answer Const General: cooperative Nutritional Appearance: obese Orientation/consciousness: patient oriented x3 Resp Effort & Inspection: normal respiratory effort Auscultation: clear to auscultation bilaterally (slightly dim bilat) Cardio Rate: regular rate Rhythm: regular rhythm Heart sounds: S1 normal heart sound present and Murmur heart sound present systolic Neuro General: patient oriented x3 Psych Appearance: grossly normal Mental Status: mental status grossly normal Speech and movement: Normal speech and movement present Affect: normal affect Attitude: cooperative Thought process: Normal thought process present Thought content: Normal thought content present Insight: Good insight present (Psych) Judgement: Good judgement present (Psych) Coding Level of Care Code Est Pt Level 3 (34308) Diagnoses HTN (hypertension) I10 Systolic murmur R01.1 Fatigue R53.83 AAA (abdominal aortic aneurysm) I71.40 Additional Codes LUIS-7 Assessment Billing - LUIS-7 Assessment Tool: LUIS-7 Assessment 33188 ([id number]) Assessment & Plan Assessment & Plan (1) HTN (hypertension): Code(s): I10 - Essential (primary) hypertension Category: Medical Plan: Stable, labs ordered (2) Systolic murmur: Code(s): R01.1 - Cardiac murmur, unspecified Category: Medical Plan: Echo ordered (3) Fatigue: Code(s): R53.83 - Other fatigue Category: Medical Plan: Labs ordered (4) AAA (abdominal aortic aneurysm): Code(s): I71.40 - Abdominal aortic aneurysm, without rupture, unspecified Category: Medical Plan The patient agreed to the use of a medical scientist for this encounter. Scribed for ITZEL Ballesteros by Trina Kemp medical scientist, on 02/25/2024 at 09:35 EST. Orders: Orders UA CC w/rflx Micro + Cult Today I10 - Essential (primary) hypertension TSH reflex Free T4 Today I10 - Essential (primary) hypertension Lipid Panel Today I10 - Essential (primary) hypertension Lyme IgG/IgM w/reflex to WB Today R53.83 - Other fatigue FLORIN Reflex Titer and Pattern Today R53.83 - Other fatigue Complete Blood Count Auto Diff Today I10 - Essential (primary) hypertension Comprehensive [place]. Panel Fast Today I10 - Essential (primary) hypertension CA echo transthoracic complete Today R01.1 - Cardiac murmur, unspecified Ferritin Today R53.83 - Other fatigue IRON PROFILE Today R53.83 - Other fatigue Vitamin B12 and Folate Today R53.83 - Other fatigue Tick-borne Disease Molecular Today R53.83 - Other fatigue Rheumatoid Factor Today R53.83 - Other fatigue abdominal aortic aneurysm Today I71.40 - Abdominal aortic aneurysm, without rupture, unspecified
[2024-02-25 09:27] VITALS: BP 126/80; PULSE 78; O2SAT 98; BMI 31.0
== END 2024-02-25 11:09 | disposition home or self-care (01) ==
PROVIDERS: PCP Nurse Practitioner Family; Visit Provider Nurse Practitioner Family
DX: I10 Essential (primary) hypertension (principal); R01.1 Cardiac murmur, unspecified; R53.83 Other fatigue; I71.40 Abdominal aortic aneurysm, without rupture, unspecified

== ENCOUNTER → 2024-02-25 09:25 | Outpatient (BNVA) | payer MEDICARE, SELFPAY | PROVIDERS: PCP Nurse Practitioner Family; Visit Provider Nurse Practitioner Family | DX: I10 Essential (primary) hypertension (principal); R01.1 Cardiac murmur, unspecified; R53.83 Other fatigue; I71.40 Abdominal aortic aneurysm, without rupture, unspecified | CPT/HCPCS: 96127; 99212 ==

== ENCOUNTER 2024-02-26 14:05 | Outpatient (AMB) | payer MEDICARE, SELFPAY ==
--- NOTE | 2024-02-26 14:08 | MHC.OFFVIS ---
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 He is a patient of Dr. Wright. He is seen for the following urologic conditions - microscopic hematuria - elevated PSA - prostate cancer Telemedicine Evaluation 15 min Consultation Rootless Beckie Video Plan for directed biopsy Prostate cancer - Grade Group 1 - 02/25 Current therapy active surveillance 06/29 PSA 5, 11/26 3.6, 08/28 4.8 4% Diagnosed by Dr. Barlow 02/25 Elevated PSA 5.5 US 30gm Histologic grade: [place] score: 3+3=6 Number cores positive: 5 (two more suspicious) LBL 5%, GERALDINE 50%, RBM 5%, RML 5%, RMM 30% % of tissue involved: 5-10% of all tissue examined Periprostatic fat inv, Seminal vesicle inv, Perineural inv, LVI: Not identified Total % - Staging 03/28 - MRI left anterior peripheral 8mm Pi-RADS 5 Microscopic Hematuria: Initial evaluation 2019 Microscopic hematuria was diagnosed during routine UA - atypical cells on evaluation. They are here for follow-up evaluation Since the last visit the patient has has not noticed gross hematuria. Relevant medical history for no pertinent medical history. 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 - 01/24 fish negative Therapeutic plan - Follow in 4 months on PSA PFSH Medical History Nicotine dependence, cigarettes, uncomplicated History of prostate cancer Hyperparathyroidism Vitamin D deficiency History of hyperparathyroidism Adrenal adenoma Obesity (BMI 30.0-34.9) Dilatation of aorta Liver cyst Renal cyst, left Dyslipidemia Primary hyperparathyroidism Adrenal nodule Hypercalcemia Surgical History Hx of prostate biopsy History of tonsillectomy History of parathyroidectomy History of esophagogastroduodenoscopy (EGD) History of colonoscopy Family History Brother Myocardial infarct Social History Housing: House Alcohol intake: current Alcohol intake frequency: 0-2 drinks per day Alcohol type: beer Patient Tobacco Use Status: Current everyday Tobacco user Tobacco use type: Cigarette Cigarettes Per Day: 10 Years Smoked: onset 14, 1ppd x 52yrs, 50PYH e-Cigarette/Vaping Use: Never Used Second Hand Smoke Exposure: Yes service: No Current occupational status: retired 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[employer] Cognitive needs: No Hearing needs: No Vision needs: Yes Review of Systems Const All systems reviewed & are unremarkable except as noted in HPI and below Reports no additional complaints Resp Reports no additional complaints GI Reports no additional complaints Reports as per HPI Musc Reports no additional complaints Physical Exam Telemedicine evaluation Appropriate responses Regular breathing rate and rhythm HEENT Head: Yes normal to inspection Ears: hearing grossly normal bilaterally Eyes General: appearance normal, both eyes and all related structures Neck Neck: Yes normal visual inspection Chest Chest palpation & inspection: normal inspection of the chest Resp Effort & Inspection: normal respiratory effort and able to speak in complete sentences Telehealth Telehealth Telehealth Platform: [facility] Location of provider rendering services: practice address Location of patient: address on file Patient Identification confirmed using: Name, : Yes Telehealth method: video Patient verbally consented to treatment: Yes Patient verbally consented to billing insurance company: Yes Patient informed of any privacy concerns related to visit: Yes Minutes spent on Phone/Video with Pt.: 15 Assessment & Plan Assessment & Plan (1) Nocturia: Code(s): R35.1 - Nocturia Category: Medical (2) Prostate cancer: Comment: 02/2522 Grade Group 1 - 5 cores Code(s): C61 - Malignant neoplasm of prostate Category: Medical Plan Risks, benefits and alternatives to therapy were discussed. These include but are not limited to infection, bleeding, damage to local organs and tissues, need for further interventions. Anesthetic risks regarding cardiac arrhythmia, blood clots, and potential mortality were discussed. The patient understands the typical recovery time and the outpatient nature of the procedure. After consideration of these risks the patient gives full informed consent and they wish to move ahead with the procedure. Targeted prostate biopsy Orders: Orders Prostate Specific Antigen Today C61 - Malignant neoplasm of prostate, E11.69 - Type 2 diabetes mellitus with other specified complication, N52.1 - Erectile dysfunction due to diseases classified elsewhere MR pelvis wo/w con Today C61 - Malignant neoplasm of prostate Patient Instructions: Imaging studies, laboratory and physical exam results were discussed and reviewed in detail. No major barriers to patient understanding were identified. An opportunity to ask questions regarding the treatment plan was provided. All questions were answered. The patient expressed understanding and agreement with the above treatment plan. The patient is aware they should contact our office by phone for worsening of their current condition or the appearance of new urologic symptoms. Compliance is encouraged with any medications and followup testing that is ordered. It is a privilege to participate in the urologic care of your patient. If you have any questions or concerns regarding treatment for the above conditions, or other urologic issues, please do not hesitate to contact me. The office telephone contact is [phone]. This note is constructed using voice recognition software. While every effort has been made to ensure accuracy roofing layer errors may have been included. Yours sincerely, Dr Fernando Barlow MD, [facility] - Urology Providers of Expert, Compassionate Care for the Genitourinary System Coding Level of Care Code Tele Est Pt Level 4 (39730) Diagnoses Nocturia R35.1 Prostate cancer C61
== END 2024-02-26 15:01 | disposition home or self-care (01) ==
LOC: HO.HUSH 14:05
PROVIDERS: PCP Nurse Practitioner Family; Visit Provider Urology
DX: R35.1 Nocturia (principal); C61 Malignant neoplasm of prostate
CPT/HCPCS: 99214

== ENCOUNTER → 2024-02-26 14:05 | Outpatient (BNVA) | payer MEDICARE, SELFPAY | PROVIDERS: PCP Nurse Practitioner Family; Visit Provider Urology ==

== ENCOUNTER 2024-03-08 06:48 | Outpatient (REF) | payer MEDICARE, SELFPAY ==
[2024-03-08 11:16] LABS: MANUAL DIFF FLAG NO
[2024-03-08 11:21] LABS: Basophils Absolute Auto 0.1 X10*3/uL (0.0-0.2); Basophils Percent Auto 0.8 % (0-2); Eosinophils Absolute Auto 0.6 X10*3/uL (0.0-0.4); Eosinophils Percent Auto 6.8 % (0-4); Hematocrit 47.6 % (42.0-52.0); Imm Gran Abs Auto 0.03 X10*3/uL (0.00-0.03); Imm Gran Pct Auto 0.3 % (0.0-0.4); Lymphocytes Absolute Auto 3.5 X10*3/uL (1.2-4.9); Lymphocytes Percent Auto 37.6 % (20-40); Mean Corpuscular HGB Conc 33.6 g/dl (31.0-36.0); Mean Corpuscular Hemoglobin 31.4 pg (27.0-33.0); Mean Corpuscular Volume 93.5 fL (80.0-98.0); Mean Platelet Volume 9.8 fL (9.4-12.4); Monocytes Absolute Auto 0.8 X10*3/uL (0.1-1.2); Monocytes Percent Auto 8.1 % (2-11); Neutrophils Absolute Auto 4.3 x10*3/uL (2.0-8.3); Neutrophils Percent Auto 46.4 % (45-73); Platelet Count 280 X10*3/uL (160-400); Red Blood Count 5.09 X10*6/uL (4.60-5.80); Red Cell Distribution Width 12.6 % (11.0-16.0); White Blood Count 9.2 X10*3/uL (4.8-10.8)
[2024-03-08 11:38] LABS: Rheumatoid Factor 53.6 IU/mL (<15.0)
[2024-03-08 11:43] LABS: Alanine Aminotransferase 25 U/L (0-40); Alkaline Phosphatase 82 U/L (39-117); Anion Gap 13 (12-20); Aspartate Amino Transferase 20 U/L (5-37); Bilirubin Total 0.4 mg/dL (0.0-1.0); Blood Urea Nitrogen 19 mg/dL (9-16); Calcium 8.7 mg/dL (8.4-10.2); Carbon Dioxide 23 mmol/L (22-29); Chloride 109 mmol/L (96-108); Cholesterol 195 mg/dL (<200); Estimated Glomerular Filt Rate > 60; Glucose Fasting 103 mg/dL (60-99); Glucose Random 103 mg/dL (60-115); HDL Cholesterol 48 mg/dL (>40); Iron 73 mcg/dL (45-160); LDL Cholesterol Calculated 122 mg/dL (<100); Percent Iron Saturation 26 % (15-50); Potassium 4.3 mmol/L (3.3-5.1); Sodium 141 mmol/L (135-145); Total Iron Binding Capacity 276 mcg/dL (228-428); Total Protein 7.4 g/dL (6.5-8.0); Triglycerides 127 mg/dL (<150); Unsaturated Iron Binding 203 ug/dL
[2024-03-08 11:55] LABS: Prostate Specific Antigen 5.33 ng/mL (<0.05-4.0)
[2024-03-08 11:56] LABS: Cortisol Random 15.2 ug/dL
[2024-03-08 12:06] LABS: Ferritin 329 ng/mL (20-250); TSH reflex Free T4 3.86 uIU/mL (0.32-4.0)
[2024-03-08 12:09] LABS: Folate 7.8 ng/mL (> or = 4.0); Vitamin B12 323 pg/mL (200-900)
[2024-03-11 01:54] LABS: Lyme Abs Screen <0.90 index
[2024-03-11 18:44] LABS: A. Phagocytphilium DNA,RT-PCR NOT DETECTED (NOT DETECTED); Babesia Microti DNA, RT-PCR NOT DETECTED (NOT DETECTED); Borrelia Miyamotoi,DNA RT-PCR NOT DETECTED (NOT DETECTED); E.Chaffeensis DNA RT-PCR NOT DETECTED (NOT DETECTED); Lyme(Borrelia ssp)DNA RT-PCR NOT DETECTED (NOT DETECTED)
[2024-03-12 10:43] LABS: Anti Nuclear Antibody Screen NEGATIVE (NEGATIVE)
== END 2024-03-08 06:49 | disposition home or self-care (01) ==
LOC: HO.HMGCLDS 06:48
PROVIDERS: Internal Medicine Endocrinology, Diabetes & Metabolism; PCP Nurse Practitioner Family; Referring Provider Nurse Practitioner Family; Visit Provider Urology
DX: R53.83 Other fatigue (principal); E11.69 Type 2 diabetes mellitus with other specified complication; N52.1 Erectile dysfunction due to diseases classified elsewhere; C61 Malignant neoplasm of prostate; D35.02 Benign neoplasm of left adrenal gland; I10 Essential (primary) hypertension; E21.3 Hyperparathyroidism, unspecified; Z12.5 Encounter for screening for malignant neoplasm of prostate
CPT/HCPCS: 36415; 80053; 80061; 82533; 82607; 82728; 82746; 83540; 84153; 84443; 85025; 86038; 86431; 86617; 86618; 87468; 87469; 87478; 87484; 87798

== ENCOUNTER 2024-03-17 07:34 | Outpatient (REF) | payer MEDICARE, SELFPAY ==
[2024-03-17 11:06] LABS: Cortisol Random 1.4 ug/dL
[2024-03-28 11:24] LABS: Dexamethasone 421 ng/dL
== END 2024-03-17 07:35 | disposition home or self-care (01) ==
LOC: HO.LAB 07:34
PROVIDERS: PCP Internal Medicine Endocrinology, Diabetes & Metabolism; Visit Provider Nurse Practitioner Family
DX: E27.8 Other specified disorders of adrenal gland (principal)
CPT/HCPCS: 36415; 80299; 82533

== ENCOUNTER 2024-03-25 08:03 | Outpatient (REF) | payer MEDICARE, SELFPAY ==
--- NOTE | ~2024-03-25 | US_ITS ---
EXAMINATION: US RETROPERITONEAL LIMITED (AORTA) CLINICAL INFORMATION: Abdominal aortic aneurysm. COMPARISON: MRI from 07/11/[address] from 04/26/2022 TECHNIQUE: Davis-scale, color Doppler and spectral Doppler evaluation of the abdominal aorta. FINDINGS: Fusiform aneurysm of the distal abdominal aorta. There is diffuse atherosclerotic plaque. Patent flow in the aorta and bilateral iliac arteries The measurements of the aorta in maximum AP and transverse dimensions respectively are as follows: Proximal: 2.8 x 3.0 cm. Mid: 2.3 x 2.7 cm. Distal: 3.2 x 3.8 cm. , Previously measuring 3.3 x 3.1 cm on axial images MRI The measurements of the common iliac arteries in maximum dimensions are as follows: Right: AP: 1.7 cm. TRV: 1.6 cm. Left: AP: 1.5 cm. TRV: 1.7 cm. US/US abdominal aortic aneurysm IMPRESSION: 1. Fusiform aneurysm of the distal abdominal aorta measuring 3.2 x 3.8 cm. Previously measuring 3.3 x 3.1 cm on axial images MRI. Based on published guidelines in J Am Kahlil Radiol 2013; 10(10):789-794 and J Vasc Surg. 2018; 67:2-77, the recommendation for an abdominal aortic aneurysm with diameter 3.5-3.9 cm is follow-up every 2 years. 2. Diffuse atherosclerotic plaque. Patent flow in the aorta and bilateral iliac arteries. Electronically signed by: Wan Bahena MD 04/15/2024 12:36 PM [facility] - [place], [place]
== END 2024-03-25 08:04 | disposition home or self-care (01) ==
LOC: HO.US 08:03
PROVIDERS: PCP Nurse Practitioner Family; Visit Provider Nurse Practitioner Family
DX: I71.40 Abdominal aortic aneurysm, without rupture, unspecified (principal); F17.200 Nicotine dependence, unspecified, uncomplicated
CPT/HCPCS: 76706

== ENCOUNTER 2024-04-09 09:50 | Outpatient (REF) | payer MEDICARE, SELFPAY | END 2024-04-09 09:51 | disposition home or self-care (01) | LOC: HO.CT 09:50 | PROVIDERS: PCP Nurse Practitioner Family; Visit Provider Physician Assistant Medical | DX: Z12.2 Encounter for screening for malignant neoplasm of respiratory organs (principal); F17.210 Nicotine dependence, cigarettes, uncomplicated | CPT/HCPCS: 71271 ==

== ENCOUNTER → 2024-04-16 10:30 | Outpatient (REF) | payer MEDICARE, SELFPAY ==
--- NOTE | 2024-04-16 10:32 | CA_ITS ---
Transthoracic Echocardiogram Patient (Last, First, Middle): Leif Kramer A Gender: Male Date of : 1955 Age: 69 Procedure Date: 04/16/2024 Procedure Type: Transthoracic Echocardiogram Location: OP Height: 180.34 cm Weight: 99.79 kg BSA: 2.20 m2 Heart Rate: bpm BP: 114 / 82 mmHg Debeaker: JOEY Referring MD: Everardo Rasmussen [facility] Melt Down Furnace Operator: Lisandro Fernández MD Symptoms: R01.1 - Cardiac murmur, unspecified Study Quality: Technically Difficult, contrast ECG Rhythm: Sinus Conclusions: - 1. Normal LV ejection fraction of 60 65% with impaired relaxation filling pattern 2. Xwvw-bb-igborena aortic stenosis 3. Mildly dilated ascending aorta at 3.8 cm Findings Procedure Information Contrast agent, definity, is being given per protocol without apparent complications. Left Ventricle Normal left ventricular size, thickness, and systolic function. The visually estimated ejection fraction is between 60-65%. Spectral Doppler is indicative of an impaired relaxation filling pattern. E/E prime ratio is between 8 and 15 consistent with indeterminate filling pressures. Right Ventricle The right ventricle was not well visualized. There is normal right ventricular systolic function. Atria The left atrium is normal in size. Interatrial shunt cannot be excluded. The right atrium was not well visualized. Aortic Valve The aortic valve was not well visualized. There is mild calcification of the aortic valve. There is mild to moderate aortic valve stenosis. The peak aortic gradient is 27 mmHg.The mean gradient is 16 mmHg. The aortic valve area is 1.47 cm2. There is no aortic valve regurgitation. Mitral Valve The mitral valve was not well visualized. There is no mitral valve regurgitation. There is no mitral valve stenosis. Pulmonic Valve The pulmonic valve was not well visualized. Tricuspid Valve The tricuspid valve was not well visualized. Tricuspid regurgitation envelope is inadequate for calculation of right ventricular systolic pressure. Normal right atrial pressure. Great Vessels The aorta was not well visualized. The pulmonary artery was not well visualized. There is mild dilatation of the ascending aorta measuring 3.80 cm. Venous The inferior vena cava is normal in size and collapses greater than 50% with inspiration. Pericardium/Pleural The pericardium was not well visualized. Measurements 2D Linear Measurements IVSd: 0.84 0.6-0.9/0.6-1.0 cm LVIDd: 4.69 3.9-5.3/4.2-5.9 cm LVIDd Index: 2.13 2.4-3.2/2.2-3.1 cm/m2 LVIDs: 3.34 2.0-3.6 cm LVPWd: 1.06 0.7-1.1 cm LA Diam: 3.20 2.7-3.8/3.0-4.0 cm LAIDs Index: 1.45 1.5-2.3 cm/m2 LV Mass: 190.62 67-162/88-224 g LV Mass Index: 86.65 43-95/49-115 g/m2 LVOT Diam: 2.30 3.0+(-)1.3 cm Mitral Valve MV Pk E: 0.60 MV PK A: 0.70 MV Decel Time: 266.00 E/A: 0.90 E'Lateral: 6.64 E'Medial: 5.00 E/E' Med: 12.10 E/E' Lat: 9.10 PHT: 78.00 MVA PHT: 2.82 Decel [place]: 2.27 Aortic Valve AoV Pk Sanjeev: 2.61 AoV Mn Sanjeev: 1.85 AoV VTI: 0.60 AoV Pk Grad: 27.00 Aov Mn Grad: 16.00 ABHISHEK Cont.VTI: 1.47 LVOT LVOT Pk Sanjeev: 1.08 LVOT Mn Sanjeev: 0.76 LVOT VTI: 0.21 LVOT Pk Grad: 5.00 LVOT Mn Grad: 3.00 LVOT Diam: 2.30 LVOT Area: 4.15 Diastolic Function MV Pk E: 0.60 MV Pk A: 0.70 E/A: 0.90 E'Medial: 5.00 E/E' Med: 12.10 E' Laterial: 6.64 E/E' Lat: 9.10 Right Ventricle TAPSE (mm): 26.70 TVS' Sanjeev: 12.90 Tricuspid Valve RA Press: 8.00 Great Vessels Aorta Sinus of Valsalva: 4.49 2.0-3.[address] [place]: 3.12 1.7-3.4 cm Ao Asc: 3.80 2.1-3.4 cm Ao Arch: 3.50 Updated in Other Vendor System with Status of Final Lisandro Fernández MD electronically signed on 04/17/2024 1:22:07 PM with status of Final
== END ==
LOC: HO.CARD 10:30
PROVIDERS: PCP Nurse Practitioner Family; Visit Provider Nurse Practitioner Family
DX: R01.1 Cardiac murmur, unspecified (principal)
CPT/HCPCS: 93306; Q9957

== ENCOUNTER → 2024-04-16 10:32 | Outpatient (BNV) | payer MEDICARE, SELFPAY | PROVIDERS: PCP Nurse Practitioner Family; Visit Provider Internal Medicine Cardiovascular Disease | DX: I35.0 Nonrheumatic aortic (valve) stenosis (principal) | CPT/HCPCS: 93306 ==

== ENCOUNTER 2024-05-14 08:29 | Outpatient (REF) | payer MEDICARE, SELFPAY ==
--- NOTE | ~2024-05-14 | MR_ITS ---
EXAMINATION: MR PELVIS WITHOUT THEN WITH IV CONTRAST HISTORY: C61 - Malignant neoplasm of prostate TECHNIQUE: 1.5T body coil survey of the pelvis was performed. Phase array coil imaging of the prostate was performed in multiplanar high resolution axial, coronal, sagittal fast spin echo T2 and axial T1 weighted imaging sequences. Axial diffusion imaging at intermediate and high field performed with ADC mapping. Next, 9 mL Gadavist was given by intravenous infusion, and dynamic axial imaging performed. COMPARISON: There are no prior studies for comparison. FINDINGS: Prostate size: 4.1 x 4.7 x 3.2 cm. Calculated prostate volume is 32.1 mL. Hemorrhage: None. Transitional Zone: There is mild heterogeneous nodular hypertrophy of the transitional zone. Peripheral Zone: On the left, there is a focus of abnormal signal intensity in the anterior peripheral zone at the apex which is periureteral in location (series 7, images 18-22), with imaging characteristics is as follows: Lesion #1: DWI PI-RADS v2.1 score: 4 T2 PI-RADS v2.1 score: 4 DCE PI-RADS v2.1 score: + Overall PI-RADS v2.1 score: 4 Capsular contact: Yes Extracapsular extension: There is slight bulging of the anterior capsule suggestive of extracapsular extension. Seminal vesicle invasion: None Neurovascular bundle involvement: None Seminal Vesicles/Ejaculatory Ducts: Symmetric and normal in signal and caliber. Pelvic Lymph Nodes: No obturator or internal iliac lymph nodes meeting size criteria for adenopathy. Marrow Signal: Normal marrow signal and enhancement without focal lesion identified. MR/MR pelvis wo/w con IMPRESSION: Focus of abnormal signal intensity in the left anterolateral periurethral peripheral zone at the apex, highly suspicious for clinically significant prostate carcinoma. PI-RADS 4: High (clinically significant cancer is likely to be present) [employer]. MR Prostate Imaging Reporting and Data System version 2.1. [email or web address] Electronically signed by: Rakesh Holley MD 05/15/2024 03:22 PM [facility] [place]
[2024-05-14] MEDS: gadobutroL 10 ML VIAL IVPUSH (09:54)
== END 2024-05-14 08:30 | disposition home or self-care (01) ==
LOC: HO.MRI 08:29
PROVIDERS: PCP Nurse Practitioner Family; Visit Provider Urology
DX: C61 Malignant neoplasm of prostate (principal)
CPT/HCPCS: 72197; A9585

== ENCOUNTER → 2024-05-14 08:29 | Outpatient (BNV) | payer MEDICARE, SELFPAY | PROVIDERS: PCP Nurse Practitioner Family; Visit Provider Radiology Diagnostic Radiology | DX: C61 Malignant neoplasm of prostate (principal) | CPT/HCPCS: 72197 ==

== ENCOUNTER 2024-06-17 09:56 | Outpatient (AMB) | payer MEDICARE, SELFPAY ==
--- NOTE | 2024-06-17 10:01 | MHC.OFFVIS ---
Intake Visit Reasons: Prostate MRI(set) Intake Note: Patient is present for PROSTATE MRI Urology Medication:FINASTERIDE Antibiotic Allergy:SULFA Blood Thinner:ASPIRIN Patroller Required: No Allergies Sulfa (Sulfonamide Antibiotics) Allergy (Intermediate, Verified 06/17/24 10:01) rash HPI Comments Details: Leif is a pleasant male. He is a patient of Dr. Wright. He is seen for the following urologic conditions - microscopic hematuria - elevated PSA - prostate cancer Repeat imaging shows minimal record changer prior 18 months Lesion remains left prostate apex abutting margin He would like to continue with surveillance Four month follow-up PSA Prostate cancer - Grade Group 1 - 02/25 Staging 05/31 left peripheral anterior zone PI-RADS 5 prostate 30 g, unchanged Current therapy active surveillance 06/29 PSA 5, 11/26 3.6, 08/28 4.8 4%, 03/[address] Barlow 02/25 Elevated PSA 5.5 US 30gm Histologic grade: [place] score: 3+3=6 Number cores positive: 5 (two more suspicious) LBL 5%, GERALDINE 50%, RBM 5%, RML 5%, RMM 30% % of tissue involved: 5-10% of all tissue examined Periprostatic fat inv, Seminal vesicle inv, Perineural inv, LVI: Not identified Total % - Staging 03/28 - MRI left anterior peripheral 8mm Pi-RADS 5 Microscopic Hematuria: Initial evaluation 2020 Microscopic hematuria was diagnosed during routine UA - atypical cells on evaluation. They are here for follow-up evaluation Since the last visit the patient has has not noticed gross hematuria. Relevant medical history for no pertinent medical history. 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 - 01/24 fish negative Therapeutic plan - Follow in 4 months on PSA [facility] Medical History (Updated 04/17/24 @ 14:41 by ANA Chandler-) Murmur Nicotine dependence, cigarettes, uncomplicated History of prostate cancer Hyperparathyroidism Vitamin D deficiency History of hyperparathyroidism Adrenal adenoma Obesity (BMI 30.0-34.9) Dilatation of aorta Liver cyst Renal cyst, left Dyslipidemia Primary hyperparathyroidism Adrenal nodule Hypercalcemia Surgical History (Updated 04/10/24 @ 10:05 by Anisa Rodriguez RN) Hx of prostate biopsy (02/2022) History of tonsillectomy History of parathyroidectomy History of esophagogastroduodenoscopy (EGD) (07/2022) History of colonoscopy (07/2022) Family History Brother Myocardial infarct Social History Housing: House Alcohol intake: current Alcohol intake frequency: 0-2 drinks per day Alcohol type: beer Patient Tobacco Use Status: Current everyday Tobacco user Tobacco use type: Cigarette Cigarettes Per Day: 10 Years Smoked: onset 14, 1ppd x 52yrs, 50PYH e-Cigarette/Vaping Use: Never Used Second Hand Smoke Exposure: Yes service: No Current occupational status: retired 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[employer] Cognitive needs: No Hearing needs: No Vision needs: Yes Review of Systems Const Denies chills and Denies fever(s) Card Reports no additional complaints and Denies syncope Resp Denies cough GI Denies abdominal pain and Denies heartburn Reports as per HPI and Denies change in libido Neuro Denies syncope Psych Denies change in libido Endo Denies change in libido Physical Exam Const General: cooperative, healthy appearing, comfortable and no acute distress Orientation/consciousness: patient oriented x3 HEENT Face and sinus: Yes normal facial exam Mouth: moist mucous membranes Neck Neck: Yes normal visual inspection, Yes full ROM and Yes trachea midline Chest Chest palpation & inspection: normal inspection of the chest Resp Effort & Inspection: normal respiratory effort, able to speak in complete sentences and no respiratory distress GI Inspection: Yes normal to inspection Back/Spine/Pelvis Cervical Spine: normal cervical lordosis Thoracic/Lumbar Spine: thoracic and lumbar spine normal to inspection Skin General skin exam: no rashes or lesions noted Neuro General: patient oriented x3, gait normal, tone normal and moves all extremities Extrem General: Yes normal to inspection and Yes capillary refill normal Assessment & Plan Assessment & Plan (1) Prostate cancer: Comment: 02/2522 Grade Group 1 - 5 cores Code(s): C61 - Malignant neoplasm of prostate Category: Medical Plan Four month follow-up check PSA Orders: Orders PSA,Total (Free>4and<10) 4 Months C61 - Malignant neoplasm of prostate Patient Instructions: This note is constructed using voice recognition software. While every effort has been made to ensure accuracy vice president lending errors may have been included. Imaging studies, laboratory and physical exam results were discussed and reviewed in detail. No major barriers to patient understanding were identified. An opportunity to ask questions regarding the treatment plan was provided. All questions were answered. The patient expressed understanding and agreement with the above treatment plan. The patient is aware they should contact our office by phone for worsening of their current condition or the appearance of new urologic symptoms. Compliance is encouraged with any medications and followup testing that is ordered. It is a privilege to participate in the urologic care of your patient. If you have any questions or concerns regarding treatment for the above conditions, or other urologic issues, please do not hesitate to contact me. The office telephone contact is [phone]. Sincerely, Dr Fernando Barlow MD, [facility] - Urology Compassionate Specialist Care for the Genitourinary System Coding Level of Care Code Est Pt Level 3 (13061) Diagnoses Prostate cancer C61
== END 2024-06-17 10:46 | disposition home or self-care (01) ==
PROVIDERS: PCP Nurse Practitioner Family; Visit Provider Urology
DX: C61 Malignant neoplasm of prostate (principal)
CPT/HCPCS: 99213

== ENCOUNTER → 2024-06-17 09:56 | Outpatient (BNVA) | payer MEDICARE, SELFPAY | PROVIDERS: PCP Nurse Practitioner Family; Visit Provider Urology | DX: C61 Malignant neoplasm of prostate (principal) | CPT/HCPCS: 99212 ==

== ENCOUNTER 2024-07-04 10:45 | Outpatient (AMB) | payer MEDICARE, SELFPAY ==
--- NOTE | 2024-07-04 10:57 | A.OFFVIS_ITS ---
Vital Signs 07/04/24 11:04 Height 5 ft 11 in Weight 225 lb 8.526 oz BMI 31.5 BP 112/70 Blood Pressure Location Lt brachial Position Sitting Pulse 78 Pulse Source Pulse Oximeter Pulse Oximetry (%) 98 Oxygen Delivery Method Room Air Intake Visit Reasons: abnormal lab Intake Note: Patient presents for abnormal lab. I have constant minor pain on both shoulders, both hands and LT foot. I been feeling pain for a few years. I take Motrin 400 mg every am and it works short term. Allergies Sulfa (Sulfonamide Antibiotics) Allergy (Intermediate, Verified 07/04/24 11:03) rash Medication List - Last Reconciled 07/04/24 by Suzi Sylvester MD aspirin (Adult Aspirin Regimen) 81 mg PO DAILY finasteride 5 mg PO DAILY 90 days pravastatin 20 mg PO BEDTIME HPI Comments Details: Patient is a 69-year-old male current everyday smoker with hyperlipidemia complicated by abdominal aortic aneurysm, aortic stenosis, hypertension, prostate cancer and hyperparathyroidism here today for evaluation of polyarthralgias in the setting of positive rheumatoid factor Joint pain: - knuckles bilateral hands - bilateral shoulders Has been ongoing for several years. Worse in the morning when he gets out of bed, but then would be fine throughout the day Does also have stiffness in the hands and back The stiffness in the hand has lasts about 15 mins Also has been having intermittent swelling involving the face that responds to antihistamines Left hand with CTS (EMG proven) - currently uses splints intermittently Family history: Parents had OA Brother had JRA PFSH Medical History (Updated 07/04/24 @ 16:12 by Suzi Sylvester MD) Murmur Nicotine dependence, cigarettes, uncomplicated History of prostate cancer Hyperparathyroidism Vitamin D deficiency History of hyperparathyroidism Adrenal adenoma Obesity (BMI 30.0-34.9) Dilatation of aorta Liver cyst Renal cyst, left Dyslipidemia Primary hyperparathyroidism Adrenal nodule Hypercalcemia Surgical History Hx of prostate biopsy (02/2022) History of tonsillectomy History of parathyroidectomy History of esophagogastroduodenoscopy (EGD) (07/2022) History of colonoscopy (07/2022) Family History Brother Myocardial infarct Social History Housing: House Alcohol intake: current Alcohol intake frequency: 0-2 drinks per day Alcohol type: beer Patient Tobacco Use Status: Current everyday Tobacco user Tobacco use type: Cigarette Cigarettes Per Day: 10 Years Smoked: onset 14, 1ppd x 52yrs, 50PYH e-Cigarette/Vaping Use: Never Used Second Hand Smoke Exposure: Yes service: No Current occupational status: retired 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[employer] Cognitive needs: No Hearing needs: No Vision needs: Yes Review of Systems Const Details: Review of Systems Constitutional: Denies fever, chills, weight loss ENT: Denies vision changes, eye pain or eye redness, dental caries, dry mouth GI: Denies nausea, vomiting, diarrhea, abdominal pain, change in BM Pulm: Denies SOB, STINSON, hemoptysis, wheezing Cards: Denies chest pain, palpitations Skin: Denies Raynaud's, rash, nail changes, photosensitivity, OIL BURNER MECH[employer]IC: Denies headaches, weakness, paresthesias, recurrent falls MSK: as per HPI All other systems reviewed and are unremarkable except noted above Physical Exam Vital Signs: Last Vital Signs Pulse 78 07/04/24 11:04 BP 112/70 07/04/24 11:04 Pulse Ox 98 07/04/24 11:04 Oxygen Delivery Method Room Air 07/04/24 11:04 BMI result Body Mass Index 31.5 Vital signs reviewed Physical Examination CONSTITUITIONAL Patient alert and cooperative. Well appearing and in no apparent painful distress HEENT Conjunctiva and sclera clear. ?Pupils equal round and reactive to light. ?No lymphadenopathy. ?Upper eyelid swelling CHEST/RESPIRATORY SYSTEM Normal respiratory effort and able to speak in complete sentences. ?Clear to auscultation bilaterally. ?No crackles, rales, rhonchi, wheezes heard. CARDIAC SYSTEM Regular rate and rhythm. ?S1 and S2 heard no murmurs. ?Radial pulses intact bilaterally MSK Hands: ?Good mold capper helper strength bilaterally. Heberden's and Kaleigh's nodes noted. ?No synovitis noted to the MCPs, PIPs or DIPs. ?No tenderness to palpation of these joints. Wrists: ?Full range of motion at the wrists without pain. ?No tenderness to palpation or synovitis noted to the wrists. Elbows: Full range of motion without pain. No tenderness, weakness, swelling, increased warmth or erythema. Shoulders: Full range of motion without pain. No tenderness, weakness, swelling, increased warmth or erythema. Hips: Full range of motion without pain. Hip bursa: No tenderness to palpation Knees: ?Full range of motion. ?No tenderness, swelling, increased warmth or erythema.?No effusion or crepitations Ankles: Full range of motion. ?No tenderness, swelling, increased warmth or owen thema.? Feet: ?Negative squeeze test. ?No tenderness to palpation or swelling of the MTPs. Tender points:?No tenderness to palpation of the bilateral trapezius, supraspinatus, greater trochanters, anterior costochondral junctions, bilateral gluteal areas, bilateral suboccipital muscle insertions SKIN Skin intact without rashes. Results Reviewed Results Reviewed: Laboratory Tests 03/08/24 06:54 WBC 9.2 RBC 5.09 Hgb 16.0 Hct 47.6 Plt Count 280 Sodium 141 Potassium 4.3 Chloride 109 H Carbon Dioxide 23 BUN 19 H Creatinine 0.86 AST 20 ALT 25 Rheumatoid Factor 53.6 H FLORIN Screen NEGATIVE XR Left Hand 07/04/2024 FINDINGS: Bones have normal alignment in the hand and wrist. No acute fracture or subluxation. No evidence of chondrocalcinosis at the wrist. A geographic 0.5 cm cystic lucency is seen at the base of the ulnar styloid. No erosions. The ulnocarpal and radiocarpal joint spaces are maintained. Also, joint spaces of the wrist and metacarpophalangeal joints are well-preserved. There are osteophytes and subarticular cystlike changes at several interphalangeal joints, including thumb interphalangeal joint and 2nd - 4th proximal interphalangeal joints. No focal soft tissue swelling. IMPRESSION: * No acute abnormalities. No fracture or subluxation in the left hand or wrist. 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 Assessment & Plan Assessment & Plan (1) Hand pain: Code(s): M79.643 - Pain in unspecified hand Category: Medical Qualifiers: Laterality: bilateral Qualified Code(s): M79.641 - Pain in right hand; M79.642 - Pain in left hand Plan: #Bilateral Hand Pain Patient is a 69-year-old male who is here today for evaluation of bilateral hand pain in the setting of a positive rheumatoid factor. At this time the history and exam are not convincing for inflammatory arthritis. He does have evidence of osteoarthritis based on the exam with his Heberden's nodes and Kaleigh's nodes as well as his x-rays which show osteoarthritic changes. I am unsure at this time if he also has a component of inflammatory arthritis. This warrants further evaluation with a bilateral hand MRI to look for subtle subclinical synovitis. In the meantime patient can use topical diclofenac 4 times a day to help with his joint pain. Plan - Bilateral Hand MRI - Topical diclofenac 1% 4 times a day - Labs today: CBC, CMP, ESR, CRP, hepatitis panel, T spot, RF, CCP - RTC 2 weeks Plan I spent 45 minutes reviewing the record and labs, taking a history, examining the patient, discussing the treatment plan and documenting in the medical record Orders: Orders C Reactive Protein Today M79.643 - Pain in unspecified hand, R76.8 - Other specified abnormal immunological findings in serum Erythrocyte Sedimentation Rate Today M79.643 - Pain in unspecified hand, R76.8 - Other specified abnormal immunological findings in serum Rheumatoid Factor Today M79.643 - Pain in unspecified hand, R76.8 - Other specified abnormal immunological findings in serum Cyclic Citrullinated Peptide Today M79.643 - Pain in unspecified hand, R76.8 - Other specified abnormal immunological findings in serum C1Q Complement Component Today M79.643 - Pain in unspecified hand, R76.8 - Other specified abnormal immunological findings in serum C1q Antibody IgG Today M79.643 - Pain in unspecified hand, R76.8 - Other sp ecified abnormal immunological findings in serum Complete Blood Count Auto Diff Today M79.643 - Pain in unspecified hand, R76.8 - Other specified abnormal immunological findings in serum Comprehensive Met. Panel Today M79.643 - Pain in unspecified hand, R76.8 - Other specified abnormal immunological findings in serum Hepatitis A,B,C Profile Today M79.643 - Pain in unspecified hand, R76.8 - Other specified abnormal immunological findings in serum T Spot TB Today M79.643 - Pain in unspecified hand, R76.8 - Other specified abnormal immunological findings in serum MR hand RT wo con Today M06.9 - Rheumatoid arthritis, unspecified, M79.643 - Pain in unspecified hand, R76.8 - Other specified abnormal immunological findings in serum MR hand LT wo con Today M06.9 - Rheumatoid arthritis, unspecified, M79.643 - Pain in unspecified hand, R76.8 - Other specified abnormal immunological findings in serum Coding Level of Care Code New Pt Level 4 (49143) Complex EM visit Add On G2211 Diagnoses Pain in both hands M79.641; M79.642 Laterality: bilateral
[2024-07-04 11:04] VITALS: BP 112/70; PULSE 78; O2SAT 98; BMI 31.5
--- OUTSIDE RECORDS SUMMARY | 2024-07-04 12:19 | XMS_ITS | Clinical Summary ---
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 Disorder of kidney and/or ureter 09/28/2020 Hypercalcemia 09/28/2020 Family History Medical History Relation Comments Cancer Mother ovarian Heart disease Sibling heart attack Relation Status Comments Father Mother Sibling Social History Tobacco Use Types Packs/Day Years Used Date Smoking Tobacco: Some Days Alcohol Use Standard Drinks/Week Comments Yes 0 (1 standard drink = 0.6 oz pure alcohol) Alcoholic Drinks/day: Occasional social drink Sex and Gender Information Value Date Recorded Sex Assigned at Not on file Legal Sex Male 4:54 PM EST Gender Identity Not on file Sexual Orientation Not on file Last Filed Vital Signs Vital Sign Reading Time Taken Comments Blood Pressure 100/60 06/05/2019 12:00 PM EST Pulse 75 06/05/2019 12:00 PM EST Temperature - - Respiratory Rate - - Oxygen Saturation 98% 06/05/2019 12:00 PM EST Inhaled Oxygen Concentration - - Weight 103 kg (228 lb) 06/05/2019 12:00 PM EST Height 182.9 cm (6') 06/05/2019 12:00 PM EST Body Mass Index 30.92 06/05/2019 12:00 PM EST Plan of Treatment Health Maintenance Due Date Last Done Comments Pneumococcal Vaccine: 65+ Ye ars (1 of 2 - PCV) 1959 Colorectal Cancer Screening: Annual FOBT 2002 Colorectal Cancer Screening: Colonoscopy 2002 Colorectal Cancer Screening: Sigmoidoscopy 2002 Influenza Vaccine (#1) 2024 Hepatitis B Vaccine Aged Out No longe r eligible based on patient's age to complete this topic Insurance [facility] Care Teams Appeals Court Associate Justice Relationship Specialty Start Date End Date Nahid Webster MD [facility] [address] [place], [place] PCP - General 05/17/20
--- OUTSIDE RECORDS SUMMARY | 2024-07-04 12:19 | XMS_ITS | Patient Health Record ---
Author Organization [facility] Address [address] [place] [address] Care Team Providers Care Pan Puller Name Role Phone Everardo Bates Primary Care Provider Unav souleymane Enrico Joni Unavailable [phone] Allergies Allergen (clinical drug ingredient) Drug/Non Drug Allergy documented on EMR Reaction Allergy Type Onset Date Status sulfamethoxazole / trimethoprim Bactrim Unknown Drug Allergy Active Seasonale Unknown Drug Allergy Active Reason For Referral No Information Medications Medication SIG (Take, Route, Frequency, Duration) Notes Start Date End Date Status Walking Boot/Pneumatic As directed Wear Daily for Until further notice Not-Taking Work Note . . . patient is disab led from work until further notice Not-Taking Work Note . . . patient may retu rn to work on 01/13/20 at 6 hours daily at 4 days per week 12/31/2019 Not-Taking Finasteride 5 MG 1 tablet Orally Once a day Active Multivitamin Active Pravastatin Sodium 10 MG 1 tablet Orally Once a day Active Physical Therapy . . . 2-3x/week for 3- 4 weeks 10/30/2019 Not-Taking Immunizations Vaccine Route Administration Date Status Comme nts COVID-19 Moderna Vaccine Unknown 05/05/2021 Administered 1st 08/30/20 2nd 09/29/20 Influenza Unknown 01/05/2021 Administered Social History Tobacco Use: Social History Observation Description Date Details (start date - stop date) Current Smoker NA - NA Tobacco Use/Smoking Question Answer Notes Are you a: current smoker Alcohol Screen Question Answer Notes Did you have a drink containing alcohol in the p ast year? Yes Points 0 Interpretation Negative Tobacco use other than smoking: Question Answer Notes Are you an other tobacco user? 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) Active confirmed Problem Chronic ulcer of foot (842458012) Non-pressure chronic ulcer of other part of left foot with fat layer exposed (L97.522) Active confirmed Problem Localized, primary osteoarthritis of the ankle and/or foot (014490784) Primary osteoarthrit is, right ankle and foot (M19.071) Active confirmed Problem Acquired hallux valgus (87803173) Hallux valgus (acquired), right foot (M20.11) Active confirmed Plan Of Treatment Pending Test Test Name Order Date X ray : Foot, left 3V 11/23/2021 X ray : Foot, right 3V 12/31/2019 X ray : Foot, right 3V 11/23/2021 [id number] SKIN/TISSUE 09/12/2021 X ray : Ankle, right 3V 10/06/2019 X ray : Ankle, right 3V 05/09/2021 X ray : Ankle, right 3V 11/23/2021 Insurance Providers Payer Name Payer Address Payer Phone Subscriber Number Group Number Insured Name Patient Relationship to Insured Coverage Start Date Coverage End Date [employer] 65 Medicare Preferred [address] [place] [address] [id number] Leif Kramer Self - patient is the insured Medical (General) History Medical History History ICD Code Back,Hip,and Knee pain Measles Mumps Chicken pox Surgical History Surgery Date(Month/Year) parathyroidectomy Xrays R Ankel ap/lat/lo 10/06/19
--- OUTSIDE RECORDS SUMMARY | 2024-07-04 12:19 | XMS_ITS | Encounter Summary ---
Author Organization [facility] Address [address] [facility] [address] [place] [address] Phone Care Team Providers Care Picker/Puller Name Role Phone Nahid Webster MD Primary Care Provider [phone]- [phone] Reason for Referral * Imaging (Routine) - Closed Specialty Diagnoses / Procedures Referred By Ava gillis Referred To Contact Diagnoses Adrenal adenoma <Unspecified side> Procedures CT Abdomen Pelvis w and wo IV Contrast Guerrero Patel MD Referral ID Status Reason Start Date Expiration Date Visits Re quested Visits Authorized [id number] Closed 09/28/2020 03/27/2021 1 1 Encounter Details Date Type Department Care Team (Late st Contact Info) Description 09/09/2020 Orders Only [facility] [address] [place] [address] Guerrero Patel MD Acquired renal cystic disease (Primary Dx); Adrenal adenoma <Unspecified side>; Hypercalcemia Social History Tobacco Use Types Packs/Day Years Used Date Smoking Tobacco: Some Days Alcohol Use Standard Drinks/Week Comments Yes 0 (1 standard drink = 0.6 oz pure alcohol) Alcoholic Drinks/day: Occasional social drink Sex and Gender Information Value Date Recorded Sex Assigned at Not on file Legal Sex Male 4:54 PM EST Gender Identity Not on file Sexual Orientation Not on file documented as of this encounter Plan of Treatment Scheduled Orders Name Type Priority Associated Diagnoses Orde r Schedule CT Abdomen Pelvis w and wo IV Contrast Imaging Routine Adrenal adenoma <Unspecified side> Expected: 09/28/2020, Expires: 09/28/2021 Renal function panel Lab Routine Adrenal adenoma <Unspecified side> Acquired renal cystic disease Hypercalcemia Expected: 09/28/2020, Expires: 10/29/2021 Urinalysis with microscopic Lab Routine Adrenal adenoma <Unspecified side> Acquired renal cystic disease Hypercalcemia Expected: 09/28/2020, Expires: 10/29/2021 Urine culture Lab Routine Adrenal adenoma <Unspecified side> Acquired renal cystic disease Hypercalcemia Expected: 09/28/2020, Expires: 10/29/2021 documented as of this encounter Procedures Procedure Name Priority Date/Time Associated Diagnosis Comments CREATININE, BLOOD Routine 10/01/2020 1:5 9 PM EDT VITAMIN D 25 HYDROXY Routine 10/01/2020 1:59 PM EDT Adrenal adenoma <Unspecified side> Acquired renal cystic disease Hypercalcemia CBC AND DIFFERENTIAL Routine 10/01/2020 1:59 PM EDT Adrenal adenoma <Unspecified side> Acquired renal cystic disease Hypercalcemia BUN Routine 10/01/2020 1:59 PM EDT MAGNESIUM Routine 10/01/2020 1:59 PM EDT Adrenal adenoma <Unspecified side> Acquired renal cystic disease Hypercalcemia CALCIUM Routine 10/01/2020 1:59 PM EDT ELECTROLYTE PANEL Routine 10/01/2020 1:5 9 PM EDT documented in this encounter Results * Calcium (10/01/2020 1:59 PM EDT) Calcium 9.0 8.4 - 10.2 mg/dL [place] 10/01/2020 1:59 PM EDT 10/01/2020 1:59 PM EDT us Guerrero Patel MD LAB BLOOD ORDERABLES Final Res ult [place] * Creatinine (10/01/2020 1:59 PM EDT) Creatinine Serum 0.80 0.5 - 1.4 mg/dL [place] eGFR >60 [place] Comment: NOTE: ??For -[place]ong[place] individuals, multiply the result ? by 1.210. Chronic Kidney Disease: ??Estimated GFR < 60 mL/min/1.73m2 Severe Kidney Disease: ??Estimated GFR < 15 mL/min/1.73m2 10/01/2020 1:59 PM EDT 10/01/2020 1:59 PM EDT Guerrero Patel MD LAB BLOOD ORDERABLES Final Res ult [place] * BUN (10/01/2020 1:59 PM EDT) BUN 12 9 - 16 mg/dL [place] 10/01/2020 1:59 PM EDT 10/01/2020 1:59 PM EDT Guerrero Patel MD LAB BLOOD ORDERABLES Final Res ult Performing Organization Address [facility]/State/[facility] Co de Phone Number [place] * Electrolyte panel (10/01/2020 1:59 PM EDT) Sodium 140 135 - 145 mmol/L [place] Potassium 4.4 3.3 - 5.1 mmol/L [place] Chloride 107 96 - 108 mmol/L [place] Bicarbonate (CO2) 23 22 - 29 mmol/L [place] Anion Gap 14 12 - 20 [place] 10/01/2020 1:59 PM EDT 10/01/2020 1:59 PM EDT Guerrero Patel MD LAB BLOOD ORDERABLES Final Res ult Performing Organization Address City/State/[facility] de Phone Number [place] * Magnesium (10/01/2020 1:59 PM EDT) Magnesium 2.2 1.6 - 2.6 mg/dL [place] Blood (Blood, Venous) 10/01/2020 1:59 PM EDT 10/01/2020 1:59 PM EDT Guerrero Patel MD LAB BLOOD ORDERABLES Final Res ult Performing Organization Address [facility] de Phone Number [place] * Vitamin D 25 hydroxy (10/01/2020 1:59 PM EDT) Vitamin D, 25-Hydroxy 36.6 >30 ng/mL [facility] Comment: Health Based Reference Values* < 20 ??ng/mL ??Deficient 20-30 ng/mL ??Insufficient > 30 ??ng/mL ??Sufficient *Petr FORTE. N Engl J Med. 2007;357:266-280 Care must be taken in interpreting Vitamin D results from different laboratories and methodologies. ??Published data demonstrated that results from patients undergoing hemodialysis may show a negative bias when tested with various automated 25-OH vitamin D assays when compared to LC-MS/MS. When testing samples from patients whose predominant form of Vitamin D is Vitamin D2, such as patients receiving Vitamin D2 supplementation, results that are subtherapeutic should be confirmed with another method such as LC-MS/MS. Blood (Blood, Venous) 10/01/2020 1:59 PM EDT 10/01/2020 1:59 PM EDT Guerrero Patel MD LAB BLOOD ORDERABLES Final Res ult Performing Organization Address [facility] Phone Number [place] * (ABNORMAL) CBC and differential (10/01/2020 1:59 PM EDT) WBC 8.8 4.8 - 10.8 X10*3/uL [employer] RBC 5.01 4.60 - 5.80 X10*6/uL [employer] Hgb 15.9 14.0 - 18.0 g/dl [employer] Hematocrit 46.9 42 - 52 % [employer] MCV 93.6 80 - 98 fL [employer] MCH 31.7 27.0 - 33.0 pg [employer] MCHC 33.9 31.0 - 36.0 g/dl [place] RDW 12.8 11.0 - 16.0 % [place] Platelets 274 160 - 400 X10*3/uL [place] MPV 10.0 9.4 - 12.4 fL [place] Neutrophils % Auto 50.1 45 - 73 % [place] Immature Granulocytes 0.2 0.0 - 0.4 % [place] Lymphocytes Relative 35.5 20 - 40 % [place] Monocytes 8.1 2 - 11 % [place] Eosinophils Relative 5.5(H) 0 - 4 % [place] Basophils Relative 0.6 0 - 2 % [place] nRBC Count 0.0 0.0 - 0.2 /100WBC [place] Neutrophils Absolute 4.4 2.0 - 8.3 X10*3/uL [place] Immature Grans (Absolute) 0.02 0.00 - 0.03 X10*3/uL [place] Lymphocytes Absolute 3.1 1.2 - 4.9 X10*3/uL [place] Monocytes Absolute 0.7 0.1 - 1.2 X10*3/uL [place] Eosinophils Absolute 0.5(H) 0.0 - 0.4 X10*3/uL [place] Basophils Absolute 0.1 0.0 - 0.2 X10*3/uL [place] NRBC Absolute 0.000 0.0 - 0.012 X10*3/uL [place] Blood (Blood, Venous) 10/01/2020 1:59 PM EDT 10/01/2020 1:59 PM EDT Guerrero Patle MD LAB BLOOD ORDERABLES Final Res ult [place] documented in this encounter Visit Diagnoses Diagnosis Acquired renal cystic disease- Primary Adrenal adenoma <Unspecified side> Hypercalcemia documented in this encounter Care Teams Picker/Puller Relationship Specialty Start Date End Date Nahid Webster MD [facility] [address] [place], [place] PCP - General 05/17/20 documented as of this encounter
== END 2024-07-04 11:36 | disposition home or self-care (01) ==
PROVIDERS: PCP Nurse Practitioner Family; Visit Provider Student in an Organized Health Care Education/Training Program
DX: M79.641 Pain in right hand (principal); M79.642 Pain in left hand
CPT/HCPCS: 99204; G2211

== ENCOUNTER 2024-07-04 11:43 | Outpatient (REF) | payer MEDICARE, SELFPAY ==
[2024-07-04 13:11] LABS: MANUAL DIFF FLAG NO
[2024-07-04 13:14] LABS: Basophils Percent Auto 0.4 % (0-2); Eosinophils Absolute Auto 0.6 X10*3/uL (0.0-0.4); Eosinophils Percent Auto 6.5 % (0-4); Hematocrit 47.7 % (42.0-52.0); Hemoglobin 16.2 g/dl (14.0-18.0); Imm Gran Abs Auto 0.02 X10*3/uL (0.00-0.03); Imm Gran Pct Auto 0.2 % (0.0-0.4); Lymphocytes Absolute Auto 3.8 X10*3/uL (1.2-4.9); Mean Corpuscular Hemoglobin 30.7 pg (27.0-33.0); Mean Corpuscular Volume 90.5 fL (80.0-98.0); Mean Platelet Volume 9.7 fL (9.4-12.4); Monocytes Absolute Auto 0.7 X10*3/uL (0.1-1.2); Neutrophils Absolute Auto 4.4 x10*3/uL (2.0-8.3); Neutrophils Percent Auto 45.9 % (45-73); Platelet Count 279 X10*3/uL (160-400); Red Blood Count 5.27 X10*6/uL (4.60-5.80); White Blood Count 9.6 X10*3/uL (4.8-10.8)
[2024-07-04 13:32] LABS: Alanine Aminotransferase 26 U/L (0-40); Albumin Level 4.2 g/dL (3.5-5.0); Alkaline Phosphatase 80 U/L (39-117); Anion Gap 11 (12-20); Aspartate Amino Transferase 22 U/L (5-37); Bilirubin Total 0.4 mg/dL (0.0-1.0); Blood Urea Nitrogen 11 mg/dL (9-16); C Reactive Protein 0.41 mg/dL (< or = 0.50); Calcium 9.3 mg/dL (8.4-10.2); Carbon Dioxide 25 mmol/L (22-29); Chloride 107 mmol/L (96-108); Estimated Glomerular Filt Rate > 60; Glucose Random 94 mg/dL (60-115); Potassium 4.4 mmol/L (3.3-5.1); Sodium 139 mmol/L (135-145); Total Protein 8.1 g/dL (6.5-8.0)
[2024-07-04 13:33] LABS: Rheumatoid Factor 61.1 IU/mL (<15.0)
[2024-07-04 13:54] LABS: Erythrocyte Sedimentation Rate 17 MM/HR (0-15)
--- OUTSIDE RECORDS SUMMARY | 2024-07-04 14:02 | XMS_ITS | Encounter Summary ---
Author Organization [facility] Address [address] [facility] [address] [place] [address] Phone Care Team Providers Care Bulldozer Engineer Name Role Phone Nahid Webster MD Primary Care Provider [phone]- [phone] Reason for Referral * Imaging (Routine) - Closed Specialty Diagnoses / Procedures Referred By Ava gillis Referred To Contact Diagnoses Adrenal adenoma <Unspecified side> Procedures CT Abdomen Pelvis w and wo IV Contrast Guerrero Patel MD Referral ID Status Reason Start Date Expiration Date Visits Re quested Visits Authorized [id number] Closed 09/28/2020 03/27/2021 1 1 Encounter Details Date Type Department Care Team (Late st Contact Info) Description 09/09/2020 Orders Only [facility] [address] [place] [address] Guerrero Patel MD Acquired renal cystic disease [...] [place] eGFR >60 [place] Comment: NOTE: ??For -Russian individuals, multiply the result ? by 1.210. [...] ORDERABLES Final Res ult Performing Organization Address [facility]/State/[facility] Co de Phone Number [place] [...] ORDERABLES Final Res ult Performing Organization Address City/State/[facility] de Phone Number [place] * Magnesium (10/01/2020 1:59 PM EDT) Magnesium 2.2 1.6 - 2.6 mg/dL [place] Blood (Blood, Venous) 10/01/2020 1:59 PM EDT 10/01/2020 1:59 PM EDT Guerrero Patel MD LAB BLOOD ORDERABLES Final Res ult Performing Organization Address [facility] de Phone Number [place] * Vitamin D 25 hydroxy (10/01/2020 1:59 PM EDT) Vitamin D, 25-Hydroxy 36.6 >30 ng/mL [facility] Comment: Health Based Reference Values* < 20 [...] ORDERABLES Final Res ult Performing Organization Address [facility] Phone Number [place] * (ABNORMAL) CBC and differential (10/01/2020 1:59 PM EDT) WBC 8.8 4.8 - 10.8 X10*3/uL [place] RBC 5.01 4.60 - 5.80 X10*6/uL [place] Hgb 15.9 14.0 - 18.0 g/dl [place] Hematocrit 46.9 42 - 52 % [place] MCV 93.6 80 - 98 fL [place] MCH 31.7 27.0 - 33.0 pg [place] MCHC 33.9 31.0 - 36.0 g/dl [place] [...] Hypercalcemia documented in this encounter Care Teams Bulldozer Engineer Relationship Specialty Start Date End Date Nahid Webster MD [facility] [address] [place], [place] PCP - General 05/17/20 documented as of this encounter
--- OUTSIDE RECORDS SUMMARY | 2024-07-04 14:02 | XMS_ITS | Clinical Summary ---
Author Organization [facility] Facility Address [address] [address] Care Team Providers Care Acid Conditioner Name Role Phone Nahid Webster MD Primary Care Provider +1- [phone] Active Problems Problem Noted Date Diagnosed Date [...] patient's age to complete this topic Insurance [facility] Care Teams Acid Conditioner Relationship Specialty Start Date End Date Nahid Webster MD [facility] [address] [place], [place] PCP - General 05/17/20
[2024-07-06 23:43] LABS: TS Negative Control Passed; TS Panel A 0; TS Panel B 0; TS Positive Control Passed; TSpotTB Negative (Negative)
[2024-07-07 08:37] LABS: HBc Num1 0.12 S/CO (0.00-0.79); HBsAGNum1 0.34 S/CO (0.00-0.99); Hepatitis A Antibody IgM 0.15 Index (0-0.79); Hepatitis B Core Antibody Nonreactive (Nonreactive); Hepatitis B Surface Antigen Negative (Negative); ~HepC Num1 0.37 S/CO (0.00-0.79); ~Hepatitis A Antibody IgM Nonreactive (Nonreactive); ~Hepatitis B Surface Antibody NONREACTIVE (Nonreactive); ~Hepatitis C Antibody Nonreactive (Nonreactive)
[2024-07-07 14:23] LABS: Cyclic Citrullinated Peptide >250 UNITS
[2024-07-10 12:39] LABS: C1q Antibody IgG <1 RU/mL (<26)
== END 2024-07-04 11:44 | disposition home or self-care (01) ==
LOC: HO.10HDL 11:43
PROVIDERS: Visit Provider Student in an Organized Health Care Education/Training Program
DX: M06.9 Rheumatoid arthritis, unspecified (principal); R76.8 Other specified abnormal immunological findings in serum; M79.641 Pain in right hand; M79.642 Pain in left hand
CPT/HCPCS: 36415; 80053; 83516; 85025; 85652; 86140; 86160; 86200; 86431; 86481; 86704; 86706; 86709; 86803; 87340; 99202

== ENCOUNTER → 2024-07-22 08:41 | Outpatient (BNV) | payer MEDICARE, SELFPAY | PROVIDERS: PCP Nurse Practitioner Family; Visit Provider Radiology Diagnostic Radiology | DX: R22.32 Localized swelling, mass and lump, left upper limb (principal); R22.31 Localized swelling, mass and lump, right upper limb | CPT/HCPCS: 73218 ==

== ENCOUNTER 2024-07-22 08:43 | Outpatient (REF) | payer MEDICARE, SELFPAY | END 2024-07-22 08:44 | disposition home or self-care (01) | LOC: HO.MRI 08:43 | PROVIDERS: PCP Nurse Practitioner Family; Visit Provider Student in an Organized Health Care Education/Training Program | DX: Z13.89 Encounter for screening for other disorder (principal) ==

== ENCOUNTER 2024-07-22 08:43 | Outpatient (REF) | payer MEDICARE, SELFPAY ==
--- NOTE | ~2024-07-22 | MR_ITS ---
CLINICAL HISTORY: R76.8 - Other specified abnormal immunological findings in serum MR right hand without contrast Findings: There is a moderate amount of bone marrow edema in the 3rd metacarpal head. There is a trace amount of edema in 4th proximal phalanx at the distal aspect. Extensive multifocal cystic change and erosions throughout the wrist and hand centered upon the joint spaces most prominent at the metacarpophalangeal and proximal interphalangeal joints. There is moderate joint space narrowing and mild osteophytosis. The musculature is normal in signal and bulk. Unremarkable vasculature. Normal alignment. No joint effusion. Intact tendons. Impression: Edema and cystic change, detailed above. The distribution favors rheumatoid arthritis. This document has been electronically signed by: Rupali Villanueva MD on 07/23/2024 21:49:00
--- NOTE | ~2024-07-22 | MR_ITS ---
CLINICAL HISTORY: R76.8 - Other specified abnormal immunological findings in serum MR left hand without contrast Comparison: CR/SR - XR HAND LT 2V - 05/16/23 12:59 EST Findings: There is a severe amount of edema in the visualized carpal bones. Edema extends to proximal 2nd through 5th metacarpals to the proximal diaphysis. There is sparing of the 1st metacarpal aside from a small amount of edema in the 1st metacarpal head.Extensive multifocal cystic change and erosions throughout the wrist and hand centered upon the joint spaces most prominent at the wrist, 1st metacarpophalangeal and 2nd through 5th proximal interphalangeal joints. There is moderate joint space narrowing and osteophytosis. The musculature is normal in signal and bulk. Unremarkable vasculature. Normal alignment. There is carpal fluid. Intact tendons. The median nerve is not increased in size. There is no edema or significant loss of fat within the carpal tunnel. Impression: Severe amount of edema in the carpal bones which extends into 2nd through 5th metacarpals which is favored to be of an inflammatory etiology. Correlate clinically for signs/symptoms of infection to exclude an infectious etiology. Cystic change and erosions most prominent at the wrist and the proximal interphalangeal joints. Correlate with laboratory values. The distribution favors rheumatoid arthritis. This document has been electronically signed by: Rupali Villanueva MD on 07/23/2024 21:54:37
--- OUTSIDE RECORDS SUMMARY | 2024-07-22 09:10 | XMS_ITS | Clinical Summary ---
Author Organization [facility] Facility Address [address] [address] Care Team Providers Care Tab Machine Operator Name Role Phone Nahid Webster MD Primary Care Provider +1- [phone] Active Problems Problem Noted Date Diagnosed Date [...] patient's age to complete this topic Insurance [facility] Care Teams Tab Machine Operator Relationship Specialty Start Date End Date Nahid Webster MD [facility] [address] [place], [place] PCP - General 05/17/20
--- OUTSIDE RECORDS SUMMARY | 2024-07-22 09:10 | XMS_ITS | Encounter Summary ---
Author Organization [facility] Address [address] [place] [address] Phone Care Team Providers Care Transit Police Officer Name Role Phone Nahid Webster MD Primary Care Provider +1- [phone] Reason for Referral * Imaging (Routine) - Closed Specialty Diagnoses / Procedures Referred By Ava gillis Referred To Contact Diagnoses Adrenal adenoma <Unspecified side> Procedures CT Abdomen Pelvis w and wo IV Contrast Guerrero Patel MD Referral ID Status Reason Start Date Expiration Date Visits Re quested Visits Authorized [id number] Closed 09/28/2020 03/27/2021 1 1 Encounter Details Date Type Department Care Team (Late st Contact Info) Description 09/09/2020 Orders Only [facility] [address] [place] [address] Guerrero Patel MD Acquired renal cystic disease [...] [place] eGFR >60 [place] Comment: NOTE: ??For -Slovak individuals, multiply the result ? by 1.210. [...] ORDERABLES Final Res ult Performing Organization Address [facility]/State/[facility] Co de Phone Number [place] * [...] ORDERABLES Final Res ult Performing Organization Address City/State/[facility] de Phone Number [place] * Magnesium (10/01/2020 1:59 PM EDT) Magnesium 2.2 1.6 - 2.6 mg/dL [place] Blood (Blood, Venous) 10/01/2020 1:59 PM EDT 10/01/2020 1:59 PM EDT Guerrero Patel MD LAB BLOOD ORDERABLES Final Res ult Performing Organization Address [facility] de Phone Number [place] * Vitamin D 25 hydroxy (10/01/2020 1:59 PM EDT) Vitamin D, 25-Hydroxy 36.6 >30 ng/mL [facility] Comment: Health Based Reference Values* < [...] ORDERABLES Final Res ult Performing Organization Address [facility] Phone Number [place] * (ABNORMAL) CBC and differential (10/01/2020 1:59 PM EDT) WBC 8.8 4.8 - 10.8 X10*3/uL [place] RBC 5.01 4.60 - 5.80 X10*6/uL [place] Hgb 15.9 14.0 - 18.0 g/dl [place] Hematocrit 46.9 42 - 52 % [place] MCV 93.6 80 - 98 fL [place] MCH 31.7 27.0 - 33.0 pg [place] MCHC 33.9 31.0 - 36.0 g/dl [place] [...] Hypercalcemia documented in this encounter Care Teams Transit Police Officer Relationship Specialty Start Date End Date Nahid Webster MD [facility] [address] [place], [place] PCP - General 05/17/20 documented as of this encounter
--- OUTSIDE RECORDS SUMMARY | 2024-07-22 09:10 | XMS_ITS | Patient Health Record ---
Author Organization [facility] [place] Address [address] [place] [address] Care Team Providers Care Electronics Department Manager Name Role Phone Everardo Bates Primary Care Provider Unav souleymane Enrico Joni Unavailable [phone] Allergies Allergen (clinical drug ingredient) Drug/Non Drug Allergy documented on EMR Reaction Allergy Type Onset Date Status Bactrim Unknown Drug Allergy Active Seasonale Unknown [...] Status Risk Notes Problem Acquired hallux valgus (88207801) Hallux valgus (acquired), left foot (M20.12) Active confirmed Problem Non-pressure chronic ulcer of other part of right foot with fat layer exposed (L97.512) Active confirmed Problem Chronic ulcer of foot (357034781) Non-pressure chronic ulcer of other part of left foot with fat layer exposed (L97.522) Active confirmed Problem Localized, primary osteoarthritis of the ankle and/or foot (263627195) Primary osteoarthrit is, right ankle and foot (M19.071) Active confirmed Problem Acquired hallux valgus (96493904) Hallux valgus (acquired), right foot (M20.11) Active confirmed Plan Of Treatment Pending Test Test Name Order Date X ray : Foot, left 3V 11/23/2021 X ray : Foot, right 3V 11/23/2021 X ray : Foot, right 3V 12/31/2019 [id number] SKIN/TISSUE 09/12/2021 X ray : Ankle, right 3V 10/06/2019 X ray : Ankle, right 3V 05/09/2021 X ray : Ankle, right 3V 11/23/2021 Insurance Providers Payer Name Payer Address Payer Phone Subscriber Number Group Number Insured Name Patient Relationship to Insured Coverage Start Date Coverage End Date [facility] 65 Medicare Preferred [address] [place] [phone] [id number] Leif Kramer Self - patient is the insured Medical (General) History Medical History History ICD Code Back,Hip,and Knee pain Measles Mumps Chicken pox Surgical History Surgery Date(Month/Year) parathyroidectomy Xrays R Ankel ap/lat/lo 10/06/19
== END 2024-07-22 08:44 | disposition home or self-care (01) ==
LOC: HO.MRI 08:43
PROVIDERS: PCP Nurse Practitioner Family; Visit Provider Student in an Organized Health Care Education/Training Program
DX: R76.8 Other specified abnormal immunological findings in serum (principal); M06.9 Rheumatoid arthritis, unspecified; M79.641 Pain in right hand; M79.642 Pain in left hand
CPT/HCPCS: 73218

== ENCOUNTER 2024-07-25 09:31 | Outpatient (AMB) | payer MEDICARE, SELFPAY ==
--- NOTE | 2024-07-25 09:34 | MHC.OFFVIS ---
Vital Signs 07/25/24 09:37 Height 5 ft 11 in Weight 227 lb 4.745 oz BMI 31.7 BP 128/78 Blood Pressure Location Lt brachial Position Sitting Pulse 91 Pulse Source Pulse Oximeter Pulse Oximetry (%) 96 Oxygen Delivery Method Room Air Intake Visit Reasons: follow up Intake Note: Patient last seen by Doctor Suzi Sylvester on 07/04/24. Presents today for follow up and test results. Allergies Sulfa (Sulfonamide Antibiotics) Allergy (Intermediate, Verified 07/25/24 09:40) rash Medication List - Last Reconciled 07/25/24 by Suzi Sylvester MD aspirin (Adult Aspirin Regimen) 81 mg PO DAILY finasteride 5 mg PO DAILY 90 days pravastatin 20 mg PO BEDTIME HPI Comments Details: Patient is a 69-year-old male current everyday smoker with hyperlipidemia complicated by abdominal aortic aneurysm, aortic stenosis, hypertension, prostate cancer and hyperparathyroidism here today for follow up of polyarthralgias in the setting of positive rheumatoid factor Interval History: Patient last seen 07/04/2024 with me. At that time he was being evaluated for polyarthralgias in the setting of a positive rheumatoid factor. The exam at that time was not consistent with an underlying autoimmune disease, with no evidence of active synovitis and normal ESR/CRP, however given his high positive rheumatoid factor further workup was sent including CCP and MRI of the bilateral hands. Today patient with no new complaints Rheumatologic History: ++RF/+++CCP Synovitis on MRI of bilateral hands Initial history by me: Patient is a 69-year-old male current everyday smoker with hyperlipidemia complicated by abdominal aortic aneurysm, aortic stenosis, hypertension, prostate cancer and hyperparathyroidism here today for evaluation of polyarthralgias in the setting of positive rheumatoid factor Joint pain: - knuckles bilateral hands - bilateral shoulders Has been ongoing for several years. Worse in the morning when he gets out of bed, but then would be fine throughout the day Does also have stiffness in the hands and back The stiffness in the hand has lasts about 15 mins Also has been having intermittent swelling involving the face that responds to antihistamines Left hand with CTS (EMG proven) - currently uses splints intermittently Family history: Parents had OA Brother had JRA Current Rheumatology Medication(s): [facility] Medical History (Updated 07/25/24 @ 10:07 by Suzi Sylvester MD) Seropositive rheumatoid arthritis Murmur Nicotine dependence, cigarettes, uncomplicated History of prostate cancer Hyperparathyroidism Vitamin D deficiency Adrenal adenoma Obesity (BMI 30.0-34.9) Liver cyst Renal cyst, left Dyslipidemia Primary hyperparathyroidism Adrenal nodule Hypercalcemia Surgical History Hx of prostate biopsy (02/2022) History of tonsillectomy History of parathyroidectomy History of esophagogastroduodenoscopy (EGD) (07/2022) History of colonoscopy (07/2022) Family History Brother Myocardial infarct Social History Housing: House Alcohol intake: current Alcohol intake frequency: 0-2 drinks per day Alcohol type: beer Patient Tobacco Use Status: Current everyday Tobacco user Tobacco use type: Cigarette Cigarettes Per Day: 10 Years Smoked: onset 14, 1ppd x 52yrs, 50PYH e-Cigarette/Vaping Use: Never Used Second Hand Smoke Exposure: Yes service: No Current occupational status: retired 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[employer] Cognitive needs: No Hearing needs: No Vision needs: Yes Review of Systems Const Details: Review of Systems Constitutional: Denies fever, chills, weight loss ENT: Denies vision changes, eye pain or eye redness, dental caries, dry mouth GI: Denies nausea, vomiting, diarrhea, abdominal pain, change in BM Pulm: Denies SOB, STINSON, hemoptysis, wheezing Cards: Denies chest pain, palpitations Skin: Denies Raynaud's, rash, nail changes, photosensitivity, HANDBAG FRAMES INSPECTOR: Denies headaches, weakness, paresthesias, recurrent falls MSK: as per HPI All other systems reviewed and are unremarkable except noted above Physical Exam Vital Signs: BMI result Body Mass Index 31.7 Vital signs reviewed Physical Examination CONSTITUITIONAL Patient alert and cooperative. Well appearing and in no apparent painful distress HEENT Conjunctiva and sclera clear. ?Pupils equal round and reactive to light. ?No lymphadenopathy. ?Upper eyelid swelling CHEST/RESPIRATORY SYSTEM Normal respiratory effort and able to speak in complete sentences. ?Clear to auscultation bilaterally. ?No crackles, rales, rhonchi, wheezes heard. CARDIAC SYSTEM Regular rate and rhythm. ?S1 and S2 heard no murmurs. ?Radial pulses intact bilaterally MSK Hands: ?Good md urologist strength bilaterally. Heberden's and Kaleigh's nodes noted. ?No synovitis noted to the MCPs, PIPs or DIPs. ?No tenderness to palpation of these joints. Wrists: ?Full range of motion at the wrists without pain. ?No tenderness to palpation or synovitis noted to the wrists. Elbows: Full range of motion without pain. No tenderness, weakness, swelling, increased warmth or erythema. Shoulders: Full range of motion without pain. No tenderness, weakness, swelling, increased warmth or erythema. Hips: Full range of motion without pain. Hip bursa: No tenderness to palpation Knees: ?Full range of motion. ?No tenderness, swelling, increased warmth or erythema.?No effusion or crepitations Ankles: Full range of motion. ?No tenderness, swelling, increased warmth or erythema.? Feet: ?Negative squeeze test. ?No tenderness to palpation or swelling of the MTPs. Tender points:?No tenderness to palpation of the bilateral trapezius, supraspinatus, greater trochanters, anterior costochondral junctions, bilateral gluteal areas, bilateral suboccipital muscle insertions SKIN Skin intact without rashes. Results Reviewed Results Reviewed: Laboratory Tests 07/04/24 11:48 WBC 9.6 RBC 5.27 Hgb 16.2 Hct 47.7 Plt Count 279 ESR 17 H Sodium 139 Potassium 4.4 Chloride 107 Carbon Dioxide 25 BUN 11 Creatinine 0.79 Total Bilirubin 0.4 AST 22 ALT 26 Alkaline Phosphatase 80 C-Reactive Protein 0.41 Total Protein 8.1 H Albumin 4.2 Laboratory Tests 03/08/24 07/04/24 06:54 11:48 Rheumatoid Factor 61.1 H Cycl Citrul Peptide IgG >250 H FLORIN Screen NEGATIVE Bilateral Hand MRI 07/2024 Findings (Left hand): There is a severe amount of edema in the visualized carpal bones. Edema extends to proximal 2nd through 5th metacarpals to the proximal diaphysis. There is sparing of the 1st metacarpal aside from a small amount of edema in the 1st metacarpal head.Extensive multifocal cystic change and erosions throughout the wrist and hand centered upon the joint spaces most prominent at the wrist, 1st metacarpophalangeal and 2nd through 5th proximal interphalangeal joints. There is moderate joint space narrowing and osteophytosis. The musculature is normal in signal and bulk. Unremarkable vasculature. Normal alignment. There is carpal fluid. Intact tendons. The median nerve is not increased in size. There is no edema or significant loss of fat within the carpal tunnel. Impression: Severe amount of edema in the carpal bones which extends into 2nd through 5th metacarpals which is favored to be of an inflammatory etiology. Correlate clinically for signs/symptoms of infection to exclude an infectious etiology. Cystic change and erosions most prominent at the wrist and the proximal interphalangeal joints. Correlate with laboratory values. The distribution favors rheumatoid arthritis. Findings (Right hand): There is a moderate amount of bone marrow edema in the 3rd metacarpal head. There is a trace amount of edema in 4th proximal phalanx at the distal aspect. Extensive multifocal cystic change and erosions throughout the wrist and hand centered upon the joint spaces most prominent at the metacarpophalangeal and proximal interphalangeal joints. There is moderate joint space narrowing and mild osteophytosis. The musculature is normal in signal and bulk. Unremarkable vasculature. Normal alignment. No joint effusion. Intact tendons. Impression: Edema and cystic change, detailed above. The distribution favors rheumatoid arthritis. Assessment & Plan Assessment & Plan (1) Seropositive rheumatoid arthritis: Comment: ++RF/+++CCP Ddx. 07/2024: Methotrexate Code(s): M05.9 - Rheumatoid arthritis with rheumatoid factor, unspecified Category: Medical Plan: #Seropositve RA Patient is a 69-year-old male with newly diagnosed seropositive rheumatoid arthritis Starting mtx Plan - Methotrexate 15mg weekly - Folic acid 1 mg daily - RTC 4 months - Labs before visit: CBC, CMP, ESR, CRP, hepatitis panel, T spot (2) Angioedema: Code(s): T78.3XXA - Angioneurotic edema, initial encounter Category: Medical Qualifiers: Encounter type: initial encounter Qualified Code(s): T78.3XXA - Angioneurotic edema, initial encounter Plan: #Angioedema Patient with recurrent swelling to face likely angioedema. Discussed antihistamine as a treatment. Consider montelukast in the future if patient requests (3) Encounter for methotrexate monitoring: Code(s): Z51.81 - Encounter for therapeutic drug level monitoring; Z79.631 - care home (current) use of antimetabolite agent Plan: #Long-term Current Use of Methotrexate Discussed with patient the benefits and risks of methotrexate for managing their rheumatic condition Benefits include reduced pain, reduced mortality, maintenance of remission and reduction of flares Risks include oral ulcers, photosensitivity, hepatotoxicity, hematologic toxicity, pneumonitis, flu-like symptoms (especially day after administration), nodulosis, lymphomas ? Limit alcohol and avoid Bactrim ? Monitoring: ?CBC, BMP, LFTs every 3-4 months and hepatitis serologies as needed Plan I spent 32 minutes reviewing the record and labs, taking a history, examining the patient, discussing the treatment plan, ordering diagnostic work up and documenting in the medical record Medications: New methotrexate sodium 15 mg (6 x 2.5 mg) PO QWEEK 90 days 78 tabs 1RF M05.9 - Rheumatoid arthritis with rheumatoid factor, unspecified folic acid 1 mg PO DAILY 90 tabs 1RF M05.9 - Rheumatoid arthritis with rheumatoid factor, unspecified Coding Level of Care Code Est Pt Level 4 (92129) Complex EM visit Add On G2211 Diagnoses Seropositive rheumatoid arthritis M05.9 Angioedema, initial encounter T78.3XXA Encounter type: initial encounter Encounter for methotrexate monitoring Z51.81; Z79.631
[2024-07-25 09:37] VITALS: BP 128/78; PULSE 91; O2SAT 96; BMI 31.7
== END 2024-07-25 10:06 | disposition home or self-care (01) ==
LOC: HO.RHE 09:32
PROVIDERS: PCP Nurse Practitioner Family; Visit Provider Student in an Organized Health Care Education/Training Program
DX: M05.79 Rheumatoid arthritis with rheumatoid factor of multiple sites without organ or systems involvement (principal); T78.3XXA Angioneurotic edema, initial encounter; Z51.81 Encounter for therapeutic drug level monitoring; Z79.631 Long term (current) use of antimetabolite agent
CPT/HCPCS: 99214; G2211

== ENCOUNTER → 2024-07-25 09:31 | Outpatient (BNVA) | payer MEDICARE, SELFPAY | PROVIDERS: PCP Nurse Practitioner Family; Visit Provider Student in an Organized Health Care Education/Training Program | DX: M05.9 Rheumatoid arthritis with rheumatoid factor, unspecified (principal); Z51.81 Encounter for therapeutic drug level monitoring; Z79.631 Long term (current) use of antimetabolite agent; T78.3XXA Angioneurotic edema, initial encounter | CPT/HCPCS: 99212 ==

== ENCOUNTER 2024-08-25 09:23 | Outpatient (AMB) | payer MEDICARE, SELFPAY ==
--- OUTSIDE RECORDS SUMMARY | 2024-08-25 09:25 | XMS_ITS | Patient Health Record ---
Author Organization [facility] [place] Address [address] [place] [address] Care Team Providers Care Display Screen Fabricator Name Role Phone Everardo Bates Primary Care Provider Unav souleymane Enrico Joni Unavailable [phone] Allergies Allergen (clinical drug ingredient) Drug/Non Drug [...] Status Risk Notes Problem Acquired hallux valgus (15507524) Hallux valgus (acquired), left foot (M20.12) Active confirmed Problem Non-pressure chronic ulcer of other part of right foot with fat layer exposed (L97.512) Active confirmed Problem Chronic ulcer of foot (065114188) Non-pressure chronic ulcer of other part of left foot with fat layer exposed (L97.522) Active confirmed Problem Localized, primary osteoarthritis of the ankle and/or foot (290252049) Primary osteoarthrit is, right ankle and foot (M19.071) Active confirmed Problem Acquired hallux valgus (17685489) Hallux valgus (acquired), right foot (M20.11) Active confirmed Plan Of Treatment Pending Test Test Name Order Date X ray : Foot, left 3V 11/23/2021 X ray : Foot, right 3V 11/23/2021 X ray : Foot, right 3V 12/31/2019 [id number] SKIN/TISSUE 09/12/2021 X ray : Ankle, right 3V 10/06/2019 X ray : Ankle, right 3V 05/09/2021 X ray : Ankle, right 3V 11/23/2021 Insurance Providers Payer Name Payer Address Payer Phone Subscriber Number Group Number Insured Name Patient Relationship to Insured Coverage Start Date Coverage End Date [employer] 65 Medicare Preferred [address] [place] [address] [id number] Leif Kramer Self - patient is the insured Medical (General) History Medical History History ICD Code Back,Hip,and Knee pain Measles Mumps Chicken pox Surgical History Surgery Date(Month/Year) parathyroidectomy Xrays R Ankel ap/lat/lo 10/06/19
--- OUTSIDE RECORDS SUMMARY | 2024-08-25 09:25 | XMS_ITS | Encounter Summary ---
Author Organization [facility] Address [address] [facility] [address] [place] [address] Phone Care Team Providers Care Director Public Name Role Phone Nahid Webster MD Primary Care Provider +1- [phone] Reason for Referral * Imaging (Routine) - Closed Specialty Diagnoses / Procedures Referred By Ava gillis Referred To Contact Diagnoses Adrenal adenoma <Unspecified side> Procedures CT Abdomen Pelvis w and wo IV Contrast Guerrero Patel MD Referral ID Status Reason Start Date Expiration Date Visits Re quested Visits Authorized [id number] Closed 09/28/2020 03/27/2021 1 1 Encounter Details Date Type Department Care Team (Late st Contact Info) Description 09/09/2020 Orders Only [facility] [address] [place] [address] Guerrero Patel MD Acquired renal cystic disease [...] [place] eGFR >60 [place] Comment: NOTE: ??For -Egyptian individuals, multiply the result ? by 1.210. [...] ORDERABLES Final Res ult Performing Organization Address [facility]/State/[facility] Co de Phone Number [place] * Electrolyte [...] ORDERABLES Final Res ult Performing Organization Address City/State/[facility] de Phone Number [place] * Magnesium (10/01/2020 1:59 PM EDT) Magnesium 2.2 1.6 - 2.6 mg/dL [place] Blood (Blood, Venous) 10/01/2020 1:59 PM EDT 10/01/2020 1:59 PM EDT Guerrero Patel MD LAB BLOOD ORDERABLES Final Res ult Performing Organization Address [facility] de Phone Number [place] * Vitamin D 25 hydroxy (10/01/2020 1:59 PM EDT) Vitamin D, 25-Hydroxy 36.6 >30 ng/mL [facility] Comment: Health Based Reference Values* < [...] ORDERABLES Final Res ult Performing Organization Address [facility] Phone Number [place] * (ABNORMAL) CBC and differential (10/01/2020 1:59 PM EDT) WBC 8.8 4.8 - 10.8 X10*3/uL [place] RBC 5.01 4.60 - 5.80 X10*6/uL [place] Hgb 15.9 14.0 - 18.0 g/dl [place] Hematocrit 46.9 42 - 52 % [place] MCV 93.6 80 - 98 fL [place] MCH 31.7 27.0 - 33.0 pg [place] MCHC 33.9 31.0 - 36.0 g/dl [place] [...] Hypercalcemia documented in this encounter Care Teams Director Public Relationship Specialty Start Date End Date Nahid Webster MD [facility] [address] [place], [place] PCP - General 05/17/20 documented as of this encounter
--- OUTSIDE RECORDS SUMMARY | 2024-08-25 09:26 | XMS_ITS | Clinical Summary ---
Author Organization [facility] Facility Address [address] [address] Care Team Providers Care Rod Machine Operator Name Role Phone Nahid Webster MD Primary Care Provider +1- [phone] Active Problems Problem Noted Date Diagnosed Date [...] Due Date Last Done Comments Pneumococcal Vaccine: 50+ Ye ars (1 of 2 - PCV) 01/04/1972 Colorectal Cancer Screening: Annual FOBT 2002 Colorectal Cancer Screening: Colonoscopy 2002 Colorectal Cancer Screening: Sigmoidoscopy 2002 Influenza Vaccine (Season Ended) 2025 Hepatitis B Vaccine Aged Out No longe r eligible based on patient's age to complete this topic Insurance [facility] Care Teams Rod Machine Operator Relationship Specialty Start Date End Date Nahid Webster MD [facility] [address] [place], [place] PCP - General 05/17/20
[2024-08-25 09:27] VITALS: BP 114/66; PULSE 80; RESP 20; TEMP 36.8; O2SAT 97; BMI 31.2
--- NOTE | 2024-08-25 09:27 | A.OFFPC_ITS ---
Vital Signs 08/25/24 09:27 Height 5 ft 11 in Weight 224 lb BMI 31.2 BP 114/66 Blood Pressure Location Rt brachial Position Sitting Respiration 20 Pulse 80 Pulse Source Pulse Oximeter Temp 98.2 F Temp Source Oral Pulse Oximetry (%) 97 Oxygen Delivery Method Room Air Intake Visit Reasons: 6m follow up Intake Note: Pt is here today for 6 months follow up visit. Allergies Sulfa (Sulfonamide Antibiotics) Allergy (Intermediate, Verified 08/25/24 10:10) rash Medication List - Last Reconciled 08/25/24 by ASIA ChandlerP- aspirin (Adult Aspirin Regimen) 81 mg PO DAILY finasteride 5 mg PO DAILY 90 days folic acid 1 mg PO DAILY methotrexate sodium 15 mg (6 x 2.5 mg) PO QWEEK 90 days pravastatin 20 mg PO BEDTIME Tobacco use date assessed: 08/25/24 Fall risk assessment: No Falls in past year Last assessed Fall Risk: 08/25/24 Dental Screening Dental Screen Date: 08/25/24 Did you have a dental visit in the last 12 months?: Yes Did you have a dental problem in the last 6 months where you did not have access to dental care?: No Was dental information given to patient?: Patient has dentist HPI 6m follow up HPI Details Chief Complaint The patient presents for follow-up regarding ear wax buildup and the management of existing cardiac conditions. History of Present Illness The patient is a 69-year-old male presenting for follow-up related to ear wax buildup and cardiac health concerns, including aortic stenosis. He has a documented history of aortic stenosis, associated with a systolic murmur and significant atherosclerosis. He is not a big fan of medications. Past echocardiograms confirmed this cardiac issue. The primary concern today is ear irrigation for cerumen impaction, with ongoing treatment involving ear drops. He remains symptomatic-free in terms of cardiac output issues, denying chest pain or exertional dyspnea. The patient's smoking habit contributes significantly to his cardiovascular risk profile. Social History - Continues to smoke, contributing to hi s cardiovascular health concerns. Health Maintenance - Encouraged cessation of smoking to elio igate cardiovascular risks. - Advised follow-up with cardiology for ongoing management of aortic stenosis. - Recommended a stress test for further evaluation of cardiac function. - Discussed the use of an Epinephrine au toinjector (EpiPen) due to potential aspirin allergy. Review of Systems - Cardiovascular: Denies chest pain, den ies increased shortness of breath. -denies any PRIETO, blurred vision, dizzines s, ear pain Physical Exam General: Cooperative, healthy appearing, comfortable, no acute distress and well developed Orientation: Patient oriented x3 Limitations: No limitations Head: Normal to inspection Ears: Hearing grossly normal bilaterally, cerumen noted, TMs easily seen after ear lavage Nose: Normal external nose present Face and sinus: Normal facial exam Eyes: Appearance normal, both eyes and all related structures Neck: Normal visual inspection and Yes full ROM Respiratory: Normal respiratory effort and able to speak in complete sentences. Clear to auscultation bilaterally Cardiovascular: Regular rate and rhythm. Normal S1 and S2, systolic murmur noted, history of aortic stenosis GI: Normal to inspection. Soft to palpation and nontender Skin: No rashes or lesions noted Neuro: Patient oriented x3 Extremities: Normal to inspection Results - EKG performed during the visit. - Recent echocardiogram indicating aorti c stenosis (April). Plan The visit concentrated on cerumen impaction management and assessing the patient's heart health. Ear irrigation was performed successfully. The patient, previously diagnosed with aortic stenosis, will undergo cardiology follow-up. A stress test is scheduled to evaluate heart function further, motivated by his atherosclerosis. Pravastatin therapy is adjusted to 40 mg for enhanced atherosclerosis management. Despite no current symptoms like chest pain, his smoking continues to be a concern. Additionally, an Epinephrine autoinjector is prescribed due to potential aspirin allergies, with a suggestion for low-dose aspirin for cardiovascular protection. Discussion Notes I reviewed the necessity of addressing the patient's aortic stenosis and atherosclerosis through enhanced cardiovascular monitoring and follow-up. I explained the diagnostic insights gained from the recent echocardiogram that showed persistent stenosis. Discussions highlighted the importance of consistent cardiology check-ups. I emphasized the benefits of stress testing and explored the increased pravastatin dosage as a preventive strategy. Discussed using a baby aspirin, reviewing benefits and risks, especially potential allergies, hence the need for an Epinephrine autoinjector. We agreed on continuous c ardiology evaluation and smoking cessation as foundational steps to reduce cardiovascular risks. Follow-ups were clearly outlined. Patient Instructions - Follow up with cardiology for further evaluation of aortic stenosis. - Quit smoking to improve heart health. - Take pravastatin as prescribed, 40 mg daily. - Keep the Epinephrine autoinjector (Epi Pen) on hand due to possible aspirin allergy. - Start taking a baby aspirin daily, unl ess allergies develop. - Return if experiencing chest pain or d ifficulties breathing. [facility] Medical History Seropositive rheumatoid arthritis Murmur Nicotine dependence, cigarettes, uncomplicated History of prostate cancer Hyperparathyroidism Vitamin D deficiency Adrenal adenoma Obesity (BMI 30.0-34.9) Liver cyst Renal cyst, left Dyslipidemia Primary hyperparathyroidism Adrenal nodule Hypercalcemia Surgical History Hx of prostate biopsy (02/2022) History of tonsillectomy History of parathyroidectomy History of esophagogastroduodenoscopy (EGD) (07/2022) History of colonoscopy (07/2022) Family History Brother Myocardial infarct Social History Housing: House Alcohol intake: current Alcohol intake frequency: 0-2 drinks per day Alcohol type: beer Patient Tobacco Use Status: Current everyday Tobacco user Tobacco use type: Cigarette Cigarettes Per Day: 10 Years Smoked: onset 14, 1ppd x 52yrs, 50PYH e-Cigarette/Vaping Use: Never Used Second Hand Smoke Exposure: Yes service: No Current occupational status: 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 1. Little interest or pleasure in doing things: not at all 2. Feeling down, depressed, or hopeless: not at all 3. Trouble falling or staying asleep, or sleeping too much: not at all 4. Feeling tired or having little energy: not at all 5. Poor appetite or overeating: not at all 6. Feeling bad about yourself - or that you are a failure or have let yourself or your family down: not at all 7. Trouble concentrating on things, such as reading the newspaper or watching television: not at all 8. Moving or speaking so slowly that other people could have noticed. Or the opposite - being so fidgety or restless that you have been moving around a lot more than usual: not at all 9. Thoughts that you would be better off or of hurting yourself in some way: not at all Total score: 0 Depression Screening Interpretation: Negative Depression Screening Done: Yes 89427 - PHQ-9 Billing: Yes Source: Developed by Drs. Rakesh Wray, Paula Ragland, Jeromy Mckeon and colleagues, with an educational emily from [employer]. Thrive Questionnaire Date Thrive assessed: 08/25/24 I am a: Patient What is your living situation today?: I choose not to answer this question Within the past 12 months, did the food you bought not last and you didn't have the money to get more?: I choose not to answer this question Within the past 12 months, did you worry whether your food would run out before you got money to buy more?: I choose not to answer this question Do you have trouble paying for medicines?: I choose not to answer this question Do you have trouble getting transportation to medical appointments?: I choose not to answer this question Do you have trouble paying your heating and electricity bill?: I choose not to answer this question Do you have trouble taking care of your child, family member or friend?: I choose not to answer this question Do you have trouble with day-to-day activities such as bathing, preparing meals, shopping, managing finances, etc.?: I choose not to answer this question Are you currently unemployed and looking for a job?: I choose not to answer this question Are you interested in more education?: I choose not to answer this question Please select the resources that you would like help with: None Currently or been in a relationship where the following occur: I choose not to answer THRIVE Score: 0 AUDIT C Alcohol Use Questionnaire (AUDIT-C) 1. How often do you have a drink containing alcohol?: Never 3. How often do you have six or more drinks on one occasion?: Never Total Score: 0 LUIS-7 AMB Questionnaire LUIS-7 Date LUIS - 7 assessed: 08/25/24 Feeling nervous, anxious, or on edge: 0 = Not at all Not being able to stop or control worryin = Not at all Worrying too much about different things: 0 = Not at all Trouble relaxin = Not at all Being so restless that it is hard to sit still: 0 = Not at all Becoming easily annoyed or irritable: 0 = Not at all Feeling afraid as if something awful might happen: 0 = Not at all Total LUIS-7 score (0-4 normal; 5-9 mild; 10-14 moderate; 15-21 severe): 0 Source: Developed by Drs. Rakesh Wray, Paula Ragland, Jeromy Mckeon and colleagues, with an educational emily from [employer]. LUIS-7 Assessment Billing LUIS-7 Assessment Tool: LUIS-7 Assessment 53066 Physical exam (Primary Care) Vital Signs: Last Vital Signs Temp 98.2 F 08/25/24 09:27 Pulse 80 08/25/24 09:27 Resp 20 08/25/24 09:27 BP 114/66 08/25/24 09:27 Pulse Ox 97 08/25/24 09:27 Oxygen Delivery Method Room Air 08/25/24 09:27 BMI result Body Mass Index 31.2 Tobacco/Smoking Status: Tobacco use Status Tobacco use date assessed 08/25/24 08/25/24 09:33 Patient Tobacco Use Status Current everyday Tobacco 08/25/24 09:33 Tobacco use type Cigarette 08/25/24 09:33 e-Cigarette/Vaping Use Never Used 08/25/24 09:33 PHQ-9: PHQ-9 Score PHQ-9: Total score 0 08/25/24 09:33 Depression Screening Interpretation: Negative Thrive Assessment: Date of Thrive Assessment Date Thrive assessed 08/25/24 08/25/24 09:33 Currently or been in a relationship where the following occur: I choose not to answer Office Procedures Cerumen Removal From which ear canal was the cerumen removed: bilateral Removal: irrigation Notes: patient tolerated procedure well, no complications and ear canal clear [id number]-[id number] Irrigation/Lavage Coding Level of Care Code Est Pt Level 3 (06304) Diagnoses HTN (hypertension) I10 Aortic stenosis I35.0 Smoker F17.200 Cerumen debris on tympanic membrane of both ears H61.23 CPT Codes Office Procedure - CPT: 78316-Uys Irrigation/Lavage ([id number]) Additional Codes LUIS-7 Assessment Billing - LUIS-7 Assessment Tool: LUIS-7 Assessment 10928 ([id number]) PHQ-9 - 17116 - PHQ-9 Billing: Yes ([id number]) Assessment & Plan Assessment & Plan (1) HTN (hypertension): Code(s): I10 - Essential (primary) hypertension Category: Medical (2) Aortic stenosis: Code(s): I35.0 - Nonrheumatic aortic (valve) stenosis Category: Medical (3) Smoker: Code(s): F17.200 - Nicotine dependence, unspecified, uncomplicated Category: Social Hx (4) Cerumen debris on tympanic membrane of both ears: Code(s): H61.23 - Impacted cerumen, bilateral Category: Medical Plan . Orders: Orders TSH reflex Free T4 Today I10 - Essential (primary) hypertension, I35.0 - Nonrheumatic aortic (valve) stenosis Lipid Panel Today I10 - Essential (primary) hypertension, I35.0 - Nonrheumatic aortic (valve) stenosis NM cardiolite stress test Today F17.200 - Nicotine dependence, unspecified, uncomplicated, I10 - Essential (primary) hypertension, I35.0 - Nonrheumatic aortic (valve) stenosis, I70.90 - Unspecified atherosclerosis CA stress test Today F17.200 - Nicotine dependence, unspecified, uncomplicated, I10 - Essential (primary) hypertension, I35.0 - Nonrheumatic aortic (valve) stenosis, I70.90 - Unspecified atherosclerosis Complete Blood Count Auto Diff Today I10 - Essential (primary) hypertension, I35.0 - Nonrheumatic aortic (valve) stenosis Comprehensive [place]. Panel Fast Today I10 - Essential (primary) hypertension, I35.0 - Nonrheumatic aortic (valve) stenosis UA CC w/rflx Micro + Cult Today I10 - Essential (primary) hypertension, I35.0 - Nonrheumatic aortic (valve) stenosis Referrals Cardiology Referral I35.0 - Nonrheumatic aortic (valve) stenosis Medications: New epinephrine (EpiPen 2-Ayo) for 2 doses 0.3 mg (0.3 mL) IM Q10M PRN 2 ea 0RF anaphylaxis Changed From pravastatin 20 mg PO BEDTIME 90 tabs 0RF To pravastatin 40 mg PO BEDTIME 90 tabs 0RF
== END 2024-08-25 10:39 | disposition home or self-care (01) ==
LOC: HO.HMCC 09:23
PROVIDERS: PCP Nurse Practitioner Family; Visit Provider Nurse Practitioner Family
DX: I10 Essential (primary) hypertension (principal); I35.0 Nonrheumatic aortic (valve) stenosis; F17.200 Nicotine dependence, unspecified, uncomplicated; H61.23 Impacted cerumen, bilateral

== ENCOUNTER → 2024-08-25 09:23 | Outpatient (BNVA) | payer MEDICARE, SELFPAY | PROVIDERS: PCP Nurse Practitioner Family; Visit Provider Nurse Practitioner Family | DX: I35.0 Nonrheumatic aortic (valve) stenosis (principal); R01.1 Cardiac murmur, unspecified; F17.210 Nicotine dependence, cigarettes, uncomplicated; I10 Essential (primary) hypertension; H61.23 Impacted cerumen, bilateral | CPT/HCPCS: 69209; 96127; 99212 ==

== ENCOUNTER 2024-09-08 06:13 | Outpatient (REF) | payer MEDICARE, SELFPAY ==
--- OUTSIDE RECORDS SUMMARY | 2024-09-08 06:15 | XMS_ITS | Clinical Summary ---
Author Organization [facility] Facility Address [address] [address] Care Team Providers Care Supervisor Word Processing Name Role Phone Nahid Webster MD Primary Care Provider +1- [phone] Active Problems Problem Noted Date Diagnosed Date [...] patient's age to complete this topic Insurance [facility] Care Teams Supervisor Word Processing Relationship Specialty Start Date End Date Nahid Webster MD [facility] [address] [place], [place] PCP - General 05/17/20
--- OUTSIDE RECORDS SUMMARY | 2024-09-08 06:15 | XMS_ITS | Patient Health Record ---
Author Organization [facility] Address [address] [facility] [place] [address] Care Team Providers Care Lithographic Artist Name Role Phone Everardo Bates Primary Care Provider Unav souleymane Enrico Joni Unavailable [phone] Allergies Allergen (clinical drug ingredient) Drug/Non Drug [...] Vaccine Route Administration Date Status Comme nts Influenza Unknown 01/05/2021 Administered COVID-19 Moderna Vaccine Unknown 05/05/2021 Administered 1st 08/30/20 2nd 09/29/20 Social History Tobacco Use: Social History Observation [...] Status Risk Notes Problem Acquired hallux valgus (81699224) Hallux valgus (acquired), left foot (M20.12) Active confirmed Problem Non-pressure chronic ulcer of other part of right foot with fat layer exposed (L97.512) Active confirmed Problem Chronic ulcer of foot (925641516) Non-pressure chronic ulcer of other part of left foot with fat layer exposed (L97.522) Active confirmed Problem Localized, primary osteoarthritis of the ankle and/or foot (548728570) Primary osteoarthrit is, right ankle and foot (M19.071) Active confirmed Problem Acquired hallux valgus (29593683) Hallux valgus (acquired), right foot (M20.11) Active confirmed Plan Of Treatment Pending Test Test Name Order Date X ray : Foot, left 3V 11/23/2021 X ray : Foot, right 3V 11/23/2021 X ray : Foot, right 3V 12/31/2019 [id number] SKIN/TISSUE 09/12/2021 X ray : Ankle, right 3V 10/06/2019 X ray : Ankle, right 3V 05/09/2021 X ray : Ankle, right 3V 11/23/2021 Insurance Providers Payer Name Payer Address Payer Phone Subscriber Number Group Number Insured Name Patient Relationship to Insured Coverage Start Date Coverage End Date [employer] 65 Medicare Preferred [address] [place] [address] [phone] [id number] Leif Kramer Self - patient is the insured Medical (General) History Medical History History ICD Code Back,Hip,and Knee pain Measles Mumps Chicken pox Surgical History Surgery Date(Month/Year) parathyroidectomy Xrays R Ankel ap/lat/lo 10/06/19
[2024-09-08 10:12] LABS: MANUAL DIFF FLAG NO
[2024-09-08 10:29] LABS: Basophils Absolute Auto 0.1 X10*3/uL (0.0-0.2); Eosinophils Absolute Auto 0.8 X10*3/uL (0.0-0.4); Hematocrit 45.8 % (42.0-52.0); Hemoglobin 15.4 g/dl (14.0-18.0); Imm Gran Abs Auto 0.02 X10*3/uL (0.00-0.03); Imm Gran Pct Auto 0.2 % (0.0-0.4); Lymphocytes Absolute Auto 3.8 X10*3/uL (1.2-4.9); Lymphocytes Percent Auto 42.7 % (20-40); Mean Corpuscular HGB Conc 33.6 g/dl (31.0-36.0); Mean Corpuscular Hemoglobin 31.8 pg (27.0-33.0); Mean Corpuscular Volume 94.4 fL (80.0-98.0); Monocytes Absolute Auto 0.8 X10*3/uL (0.1-1.2); Monocytes Percent Auto 9.2 % (2-11); Neutrophils Absolute Auto 3.4 x10*3/uL (2.0-8.3); Neutrophils Percent Auto 37.9 % (45-73); Platelet Count 259 X10*3/uL (160-400); Red Blood Count 4.85 X10*6/uL (4.60-5.80); Red Cell Distribution Width 13.4 % (11.0-16.0)
[2024-09-08 10:57] LABS: Alanine Aminotransferase 20 U/L (0-40); Alkaline Phosphatase 72 U/L (39-117); Anion Gap 12 (12-20); Aspartate Amino Transferase 20 U/L (5-37); Bilirubin Total 0.3 mg/dL (0.0-1.0); Blood Urea Nitrogen 19 mg/dL (9-16); Calcium 8.7 mg/dL (8.4-10.2); Carbon Dioxide 24 mmol/L (22-29); Chloride 107 mmol/L (96-108); Cholesterol 156 mg/dL (<200); Estimated Glomerular Filt Rate > 60; Glucose Fasting 99 mg/dL (60-99); HDL Cholesterol 46 mg/dL (>40); LDL Cholesterol Calculated 86 mg/dL (<100); Potassium 4.3 mmol/L (3.3-5.1); Sodium 139 mmol/L (135-145); TSH reflex Free T4 4.31 uIU/mL (0.32-4.0); Triglycerides 124 mg/dL (<150)
[2024-09-08 12:07] LABS: Free T4 (Free Thyroxine) 1.08 ng/dL (0.71-1.85)
== END 2024-09-08 06:14 | disposition home or self-care (01) ==
LOC: HO.HMGCLDS 06:13
PROVIDERS: PCP Nurse Practitioner Family; Visit Provider Nurse Practitioner Family
DX: I10 Essential (primary) hypertension (principal); I35.0 Nonrheumatic aortic (valve) stenosis
CPT/HCPCS: 36415; 80053; 80061; 84439; 84443; 85025

== ENCOUNTER 2024-10-06 09:20 | Outpatient (REF) | payer MEDICARE, SELFPAY ==
--- OUTSIDE RECORDS SUMMARY | 2024-10-06 09:59 | XMS_ITS | Encounter Summary ---
Author Organization [facility] Address [address] [facility] [address] [place] [address] Phone Care Team Providers Care Wig Maker Name Role Phone Nahid Webster MD Primary Care Provider +1- [phone] Reason for Referral * Imaging (Routine) - Closed Specialty Diagnoses / Procedures Referred By Ava gillis Referred To Contact Diagnoses Adrenal adenoma <Unspecified side> Procedures CT Abdomen Pelvis w and wo IV Contrast Guerrero Patel MD Referral ID Status Reason Start Date Expiration Date Visits Re quested Visits Authorized [id number] Closed 09/28/2020 03/27/2021 1 1 Encounter Details Date Type Department Care Team (Late st Contact Info) Description 09/09/2020 Orders Only [facility] [address] [place] [address] Guerrero Patel MD Acquired renal cystic disease [...] 0.80 0.5 - 1.4 mg/dL [place] eGFR (Calc) >60 [place] Comment: NOTE: ??For -Spanish individuals, multiply the result ? by 1.210. Chronic Kidney Disease: ??Estimated GFR < 60 mL/min/1.73m2 Severe Kidney Disease: ??Estimated GFR < 15 mL/min/1.73m2 10/01/2020 1:59 PM EDT 10/01/2020 1:59 PM EDT Guerrero Patel MD LAB BLOOD ORDERABLES Final Res ult [facility] * BUN (10/01/2020 1:59 PM EDT) BUN 12 9 - 16 mg/dL [facility] 10/01/2020 1:59 PM EDT 10/01/2020 1:59 PM EDT Guerrero Patel MD LAB BLOOD ORDERABLES Final Res ult [place] * Electrolyte panel (10/01/2020 1:59 PM EDT) Sodium 140 135 - 145 mmol/L [place] Potassium 4.4 3.3 - 5.1 mmol/L [place] Chloride 107 96 - 108 mmol/L [place] Bicarbonate (CO2) 23 22 - 29 mmol/L [place] Anion Gap 14 12 - 20 [place] 10/01/2020 1:59 PM EDT 10/01/2020 1:59 PM EDT Guerrero Patel MD LAB BLOOD ORDERABLES Final Res ult Performing Organization Address [facility]/State/ZIP Co de Phone Number [place] * Magnesium (10/01/2020 1:59 PM EDT) Magnesium 2.2 1.6 - 2.6 mg/dL [place] Blood specimen (specimen) Venous blood / Unknown 10/01/2020 1:59 PM EDT 10/01/2020 1:59 PM EDT Guerrero Patel MD LAB BLOOD ORDERABLES Final Res ult Performing Organization Address [facility] [address] [facility] de Phone Number [place] * Vitamin D 25 hydroxy (10/01/2020 1:59 PM EDT) Vitamin D, 25-Hydroxy 36.6 >30 ng/mL [facility] Comment: Health Based Reference Values* < [...] with another method such as LC-MS/MS. Blood specimen (specimen) Venous blood / Unknown 10/01/2020 1:59 PM EDT 10/01/2020 1:59 PM EDT Guerrero Patel MD LAB BLOOD ORDERABLES Final Res ult Performing Organization Address [facility] [address]/[facility] de Phone Number [place] * (ABNORMAL) CBC and differential (10/01/2020 1:59 PM EDT) WBC 8.8 4.8 - 10.8 X10*3/uL [place] RBC 5.01 4.60 - 5.80 X10*6/uL [place] Hgb 15.9 14.0 - 18.0 g/dl [place] Hematocrit 46.9 42 - 52 % [place] MCV 93.6 80 - 98 fL [place] MCH 31.7 27.0 - 33.0 pg [place] MCHC 33.9 31.0 - 36.0 g/dl [place] [...] 0.000 0.0 - 0.012 X10*3/uL [place] Blood specimen (specimen) Venous blood / Unknown 10/01/2020 1:59 PM EDT 10/01/2020 1:59 PM EDT Guerrero Patel MD LAB BLOOD ORDERABLES Final Res ult [place] documented in this encounter Visit Diagnoses Diagnosis Acquired renal cystic disease- Primary Adrenal adenoma <Unspecified side> Hypercalcemia documented in this encounter Care Teams Wig Maker Relationship Specialty Start Date End Date Nahid Webster MD [facility] [address] [place], [place] PCP - General 05/17/20 documented as of this encounter
[2024-10-06 10:13] LABS: Appearance Urine Clear; Color Urine Yellow; Glucose Urine UA Negative (Negative); Leukocyte Esterase Urine Negative (Negative); Nitrite Urine Negative (Negative); Specific Gravity - Urine <= 1.005 (1.005-1.025); Urine Blood Negative (Negative); Urine Ketones Negative (Negative); Urine Protein Negative (Neg-Trace)
[2024-10-06 10:47] LABS: TSH reflex Free T4 3.39 uIU/mL (0.32-4.0)
[2024-10-06 11:14] LABS: PSA,Total (Free>4and<10) 6.01 ng/mL (0.00-4.00)
[2024-10-07 13:43] LABS: Free Prostate Spec Ag 0.3 ng/mL; Percent Free Prostate Spec Ag 6 % (calc) (>25); Prostate Specific Ag Total 4.8 ng/mL (< OR = 4.0)
[2024-10-07 20:53] LABS: Thyroid Peroxidase Antibodies <1 IU/mL (<9)
== END 2024-10-06 09:21 | disposition home or self-care (01) ==
LOC: HO.10HDL 09:20
PROVIDERS: Nurse Practitioner Family; Visit Provider Urology
DX: C61 Malignant neoplasm of prostate (principal); I10 Essential (primary) hypertension; R79.89 Other specified abnormal findings of blood chemistry; Z12.5 Encounter for screening for malignant neoplasm of prostate
CPT/HCPCS: 36415; 81003; 84153; 84154; 84443; 86376

== ENCOUNTER 2024-10-15 09:05 | Outpatient (AMB) | payer MEDICARE, SELFPAY ==
--- NOTE | 2024-10-15 09:05 | A.OFFVIS_ITS ---
Intake Visit Reasons: 4m/PSA Intake Note: Patient is present for 4M/PSA Urology Medication:FINASTERIDE Antibiotic Allergy:SULFA Blood Thinner:ASPIRIN Cashier And Waiter/Waitress Required: No Allergies Sulfa (Sulfonamide Antibiotics) Allergy (Intermediate, Verified 10/15/24 09:06) rash HPI Comments Details: Leif is a pleasant male. He is a patient of Dr. Wright. He is seen for the following urologic conditions - microscopic hematuria - elevated PSA - prostate cancer Telemedicine Evaluation 15 min Consultation DoximSparkupReader Beckie Video Lesion remains left prostate apex abutting margin PSA rising despite finasteride but slow Discussed targeted prostate cryotherapy given low grade disease Would like to check PSA in 4 months Prostate cancer - Grade Group 1 - 02/25 Staging 05/31 left peripheral anterior zone PI-RADS 5 prostate 30 g, unchanged Current therapy active surveillance 06/29 PSA 5, 11/26 3.6, 08/28 4.8 4%, 03/30 5.3, 10/29 4.8 6% Diagnosed by Dr. Barlow 02/25 Elevated PSA 5.5 US 30gm Histologic grade: [place] score: 3+3=6 Number cores positive: 5 (two more suspicious) LBL 5%, GERALDINE 50%, RBM 5%, RML 5%, RMM 30% % of tissue involved: 5-10% of all tissue examined Periprostatic fat inv, Seminal vesicle inv, Perineural inv, LVI: Not identified Total % - Staging 03/28 - MRI left anterior peripheral 8mm Pi-RADS 5 Microscopic Hematuria: Initial evaluation 2020 Microscopic hematuria was diagnosed during routine UA - atypical cells on evaluation. They are here for follow-up evaluation Since the last visit the patient has has not noticed gross hematuria. Relevant medical history for no pertinent medical history. 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 - 01/24 fish negative Therapeutic plan - Follow in 4 months on PSA PFSH Medical History Seropositive rheumatoid arthritis Murmur Nicotine dependence, cigarettes, uncomplicated History of prostate cancer Hyperparathyroidism Vitamin D deficiency Adrenal adenoma Obesity (BMI 30.0-34.9) Liver cyst Renal cyst, left Dyslipidemia Primary hyperparathyroidism Adrenal nodule Hypercalcemia Surgical History Hx of prostate biopsy (02/2022) History of tonsillectomy History of parathyroidectomy History of esophagogastroduodenoscopy (EGD) (07/2022) History of colonoscopy (07/2022) Family History Brother Myocardial infarct Social History Housing: House Alcohol intake: current Alcohol intake frequency: 0-2 drinks per day Alcohol type: beer Patient Tobacco Use Status: Current everyday Tobacco user Tobacco use type: Cigarette Cigarettes Per Day: 10 Years Smoked: onset 14, 1ppd x 52yrs, 50PYH e-Cigarette/Vaping Use: Never Used Second Hand Smoke Exposure: Yes service: No Current occupational status: retired 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 While every effort has been made to ensure accuracy grades 6 through 8 teacher errors may have been included. Imaging studies, laboratory and physical exam results were discussed and reviewed in detail. No major barriers to patient understanding were identified. An opportunity to ask questions regarding the treatment plan was provided. All questions were answered. The patient expressed understanding and agreement with the above treatment plan. The patient is aware they should contact our office by phone for worsening of their current condition or the appearance of new urologic symptoms. Compliance is encouraged with any medications and followup testing that is ordered. It is a privilege to participate in the urologic care of your patient. If you have any questions or concerns regarding treatment for the above conditions, or other urologic issues, please do not hesitate to contact me. The office telephone contact is [phone]. Sincerely, Dr Fernando Barlow MD, [facility] - Urology Compassionate Specialist Care for the Genitourinary System Coding Level of Care Code Tele Est Pt Level 3 (38315) Complex EM visit Add On G2211 Diagnoses Prostate cancer C61 Bladder outlet obstruction N32.0
--- OUTSIDE RECORDS SUMMARY | 2024-10-15 09:36 | XMS_ITS | Encounter Summary ---
Author Organization [facility] Address [address] [facility] [address] [place] [address] Phone Care Team Providers Care Machine Castings Plasterer Name Role Phone Nahid Webster MD Primary Care Provider [phone]- [phone] Reason for Referral * Imaging (Routine) - Closed Specialty Diagnoses / Procedures Referred By Ava gillis Referred To Contact Diagnoses Adrenal adenoma <Unspecified side> Procedures CT Abdomen Pelvis w and wo IV Contrast Guerrero Patel MD Referral ID Status Reason Start Date Expiration Date Visits Re quested Visits Authorized [id number] Closed 09/28/2020 03/27/2021 1 1 Encounter Details Date Type Department Care Team (Late st Contact Info) Description 09/09/2020 Orders Only [facility] [address] [place] [address] Guerrero Patel MD Acquired renal cystic disease [...] eGFR (Calc) >60 [place] Comment: NOTE: ??For -Stateless individuals, multiply the result ? by 1.210. Chronic Kidney Disease: ??Estimated GFR < 60 mL/min/1.73m2 Severe Kidney Disease: ??Estimated GFR < 15 mL/min/1.73m2 10/01/2020 1:59 PM EDT 10/01/2020 1:59 PM EDT Guerrero Patel MD LAB BLOOD ORDERABLES Final Res ult [facility] * BUN (10/01/2020 1:59 PM EDT) BUN 12 9 - 16 mg/dL [facility] 10/01/2020 1:59 PM EDT 10/01/2020 1:59 PM [...] ORDERABLES Final Res ult Performing Organization Address [facility]/State/ZIP Co de Phone Number [place] * Magnesium (10/01/2020 1:59 PM EDT) Magnesium 2.2 1.6 - 2.6 mg/dL [place] Blood specimen (specimen) Venous blood / Unknown 10/01/2020 1:59 PM EDT 10/01/2020 1:59 PM EDT Guerrero Patel MD LAB BLOOD ORDERABLES Final Res ult Performing Organization Address [facility] de Phone Number [place] * Vitamin D 25 hydroxy (10/01/2020 1:59 PM EDT) Vitamin D, 25-Hydroxy 36.6 >30 ng/mL [facility] Comment: Health Based Reference Values* < [...] ORDERABLES Final Res ult Performing Organization Address [facility] de Phone Number [place] * (ABNORMAL) CBC and differential (10/01/2020 1:59 PM EDT) WBC 8.8 4.8 - 10.8 X10*3/uL [place] RBC 5.01 4.60 - 5.80 X10*6/uL [place] Hgb 15.9 14.0 - 18.0 g/dl [place] Hematocrit 46.9 42 - 52 % [place] MCV 93.6 80 - 98 fL [place] MCH 31.7 27.0 - 33.0 pg [place] MCHC 33.9 31.0 - 36.0 g/dl [place] [...] Hypercalcemia documented in this encounter Care Teams Machine Castings Plasterer Relationship Specialty Start Date End Date Nahid Webster MD [facility] [address] [place], [place] PCP - General 05/17/20 documented as of this encounter
== END 2024-10-15 10:34 | disposition home or self-care (01) ==
LOC: HO.HUSH 09:05
PROVIDERS: PCP Nurse Practitioner Family; Visit Provider Urology
DX: C61 Malignant neoplasm of prostate (principal); N32.0 Bladder-neck obstruction
CPT/HCPCS: 99213; G2211

== ENCOUNTER → 2024-10-15 09:05 | Outpatient (BNVA) | payer MEDICARE, SELFPAY | PROVIDERS: PCP Nurse Practitioner Family; Visit Provider Urology ==

== ENCOUNTER 2024-11-24 09:47 | Outpatient (REF) | payer MEDICARE, SELFPAY ==
--- OUTSIDE RECORDS SUMMARY | 2024-11-24 10:25 | XMS_ITS | Encounter Summary ---
Author Organization [facility] Address [address] [facility] [address] [place] [address] Phone Care Team Providers Care County Director Name Role Phone Nahid Webster MD Primary Care Provider +1- [phone] Reason for Referral * Imaging (Routine) - Closed Specialty Diagnoses / Procedures Referred By Ava gillis Referred To Contact Diagnoses Adrenal adenoma <Unspecified side> Procedures CT Abdomen Pelvis w and wo IV Contrast Guerrero Patel MD Referral ID Status Reason Start Date Expiration Date Visits Re quested Visits Authorized [id number] Closed 09/28/2020 03/27/2021 1 1 Encounter Details Date Type Department Care Team (Late st Contact Info) Description 09/09/2020 Orders Only [facility] [address] [place] [address] Guerrero Patel MD Acquired renal cystic disease [...] [place] eGFR (Calc) >60 [place] Comment: NOTE: For -[place] individuals, multiply the result by 1.210. Chronic Kidney Disease: Estimated GFR < 60 mL/min/1.73m2 Severe Kidney Disease: Estimated GFR < 15 mL/min/1.73m2 10/01/2020 1:59 PM EDT 10/01/2020 1:59 PM EDT Guerrero Patel MD LAB BLOOD ORDERABLES Final Res ult [place] * BUN (10/01/2020 1:59 PM EDT) BUN 12 9 - 16 mg/dL [place] 10/01/2020 1:59 PM EDT 10/01/2020 1:59 PM EDT Guerrero Patel MD LAB BLOOD ORDERABLES Final Res ult Performing Organization Address [facility]/ZIP Co de Phone Number [place] * Electrolyte panel (10/01/2020 1:59 PM EDT) Sodium 140 135 - 145 mmol/L [place] Potassium 4.4 3.3 - 5.1 mmol/L [place] Chloride 107 96 - 108 mmol/L [place] Bicarbonate (CO2) 23 22 - 29 mmol/L [place] Anion Gap 14 12 - 20 [place] 10/01/2020 1:59 PM EDT 10/01/2020 1:59 PM EDT Guerrero Patel MD LAB BLOOD ORDERABLES Final Res ult Performing Organization Address City/State/[facility] Co de Phone Number [place] * Magnesium (10/01/2020 1:59 PM EDT) Magnesium 2.2 1.6 - 2.6 mg/dL [place] Blood specimen (specimen) Venous blood / Unknown 10/01/2020 1:59 PM EDT 10/01/2020 1:59 PM EDT Guerrero Patel MD LAB BLOOD ORDERABLES Final Res ult Performing Organization Address [facility] de Phone Number [place] * Vitamin D 25 hydroxy (10/01/2020 1:59 PM EDT) Vitamin D, 25-Hydroxy 36.6 >30 ng/mL [facility] Comment: Health Based Reference Values* < 20 ng/mL Deficient 20-30 ng/mL Insufficient > 30 ng/mL Sufficient *Petr FORTE. N Engl J Med. 2007;357:266-280 Care must be taken in interpreting Vitamin D results from different laboratories and methodologies. Published data demonstrated that results from patients undergoing [...] Res ult Performing Organization Address [facility] de Phone Number [place] * (ABNORMAL) CBC and differential (10/01/2020 1:59 PM EDT) WBC 8.8 4.8 - 10.8 X10*3/uL [place] RBC 5.01 4.60 - 5.80 X10*6/uL [place] Hgb 15.9 14.0 - 18.0 g/dl [facility] Hematocrit 46.9 42 - 52 % [place] MCV 93.6 80 - 98 fL [place] MCH 31.7 27.0 - 33.0 pg [place] MCHC 33.9 31.0 - 36.0 g/dl [place] RDW 12.8 11.0 - 16.0 % [place] [...] Hypercalcemia documented in this encounter Care Teams County Director Relationship Specialty Start Date End Date Nahid Webster MD [facility] [address] [place], [place] PCP - General 05/17/20 documented as of this encounter
--- OUTSIDE RECORDS SUMMARY | 2024-11-24 10:25 | XMS_ITS | Patient Health Record ---
Author Organization [facility] Address [address] [place] [address] Care Team Providers Care Electronic Imaging System Operator Name Role Phone Nahid Webster M.D. Primary Care Provider Faye Angel Maldonado Jr Unavailable Allergies Allergen (clinical drug ingredient) Drug/Non Drug Allergy documented on EMR Reaction Allergy Type Onset Date Status Sulfa Unknown Drug Allergy Active Reason For Referral No Information Medications Medication SIG (Take, Route, Fr equency, Duration) Notes Start Date End Date Status Omeprazole 20 MG 1 capsule Orally Onc e a day for 30 day(s) 04/17/2012 05/07/2024 Active MoviPrep 100 GM as directed before c olonoscopy Orally for 1 dose 04/17/2012 05/07/2024 Active Plan Of Treatment Future Test Test Name Order Date COLONOSCOPY 04/17/2012 Insurance Providers Payer Name Payer Address Payer Phone Subscriber Number Group Number Insured Name Patient Relationship to Insured Coverage Start Date Coverage End Date [facility] [employer] CLAIM[facility] [address] [place] [address] [phone] [id number] ROSEN Self - patient is the insured Medical (General) History Medical History History ICD Code Denies [place],DM,CVA,Lung disease,renal dise ase
--- OUTSIDE RECORDS SUMMARY | 2024-11-24 10:26 | XMS_ITS | Patient Health Record ---
Author Organization [facility] Address [address] [place] [address] Care Team Providers Care Ground Crew Lines Person Name Role Phone Everardo Bates Primary Care Provider Unajustin comer WestonJoni Unavailable [phone] Allergies Allergen (clinical drug ingredient) Drug/Non Drug Allergy documented on EMR Reaction Allergy Type Onset Date Status sulfamethoxazole / trimethoprim Bactrim Unknown Drug Allergy Active Seasonale Unknown Drug Allergy Active Reason For Referral No Information Medications Medication SIG (Take, Route, Frequency, Duration) Notes Start Date End Date Status Walking Boot/Pneumatic As directed Wear Daily; Duration: Until further notice Not-Taking Work Note . [...] day Active Physical Therapy . . . 2-3x/week; Duration: 3-4 weeks 10/30/2019 Not-Taking Immunizations Vaccine Route Administration [...] Status Risk Notes Problem Acquired hallux valgus (11098584) Hallux valgus (acquired), left foot (M20.12) Active confirmed Problem Non-pressure chronic ulcer of other part of right foot with fat layer exposed (L97.512) Active confirmed Problem Chronic ulcer of foot (058195182) Non-pressure chronic ulcer of other part of left foot with fat layer exposed (L97.522) Active confirmed Problem Localized, primary osteoarthritis of the ankle and/or foot (863286545) Primary osteoarthrit is, right ankle and foot (M19.071) Active confirmed Problem Acquired hallux valgus (55717783) Hallux valgus (acquired), right foot (M20.11) Active confirmed Plan Of Treatment Pending Test Test Name Order Date X ray : Foot, left 3V 11/23/2021 X ray : Foot, right 3V 11/23/2021 X ray : Foot, right 3V 12/31/2019 [id number] SKIN/TISSUE 09/12/2021 X ray : Ankle, right 3V 10/06/2019 X ray : Ankle, right 3V 05/09/2021 X ray : Ankle, right 3V 11/23/2021 Insurance Providers Payer Name Payer Address Payer Phone Subscriber Number Group Number Insured Name Patient Relationship to Insured Coverage Start Date Coverage End Date [employer] 65 Medicare Preferred [address] [place] [address] [id number] Leif Kramer Self - patient is the insured Medical (General) History Medical History History ICD Code Back,Hip,and Knee pain Measles Mumps Chicken pox Surgical History Surgery Date(Month/Year) parathyroidectomy Xrays R Ankel ap/lat/lo 10/06/19
[2024-11-24 13:08] LABS: Baso%MD 0.4 %; Eos%MD 6.3 %; Hematocrit 45.4 % (42.0-52.0); Hemoglobin 15.7 g/dl (14.0-18.0); IG%MD 0.4 %; Lymph%MD 37.6 %; Mean Corpuscular HGB Conc 34.6 g/dl (31.0-36.0); Mean Corpuscular Hemoglobin 31.8 pg (27.0-33.0); Mean Corpuscular Volume 92.1 fL (80.0-98.0); Mono%MD 8.2 %; NRBC Abs Auto 0.000 X10*3/uL (0.0-0.012); NRBC Pct Auto 0.0 /100WBC (0.0-0.2); Neut%MD 47.1 %; Platelet Count 261 X10*3/uL (160-400); Red Blood Count 4.93 X10*6/uL (4.60-5.80); White Blood Count 9.3 X10*3/uL (4.8-10.8)
[2024-11-24 13:30] LABS: Alanine Aminotransferase 27 U/L (0-40); Albumin Level 4.3 g/dL (3.5-5.0); Alkaline Phosphatase 67 U/L (39-117); Anion Gap 12 (12-20); Aspartate Amino Transferase 21 U/L (5-37); Blood Urea Nitrogen 12 mg/dL (9-16); Calcium 8.7 mg/dL (8.4-10.2); Carbon Dioxide 24 mmol/L (22-29); Chloride 107 mmol/L (96-108); Estimated Glomerular Filt Rate > 60; Potassium 4.0 mmol/L (3.3-5.1); Sodium 139 mmol/L (135-145); Total Protein 7.1 g/dL (6.5-8.0)
[2024-11-24 14:14] LABS: Basophils Abs Manual 0.2 X10*3/uL (0.0-0.2); Basophils Percent Manual 2 % (0-2); Eosinophils Absolute Manual 0.3 X10*3/uL (0.0-0.4); Eosinophils Percent Manual 3 % (0-4); Lymphocytes Absolute Manual 3.5 X10*3/uL (1.2-4.9); Lymphocytes Percent Manual 38 % (20-40); Monocytes Absolute Manual 0.5 X10*3/uL (0.1-1.2); Monocytes Percent Manual 5 % (2-11); Neutrophils Percent Manual 52 % (45-73); RBC Morphology NORMAL
[2024-11-24 14:18] LABS: Band Neutrophils Percent 0 % (3-5); Neutrophils Absolute Manual 4.8 X10*3/uL (2.0-8.3)
[2024-11-25 08:33] LABS: HBS Num1 0.00 mIU/mL (0-7.99); Hepatitis B Surface Antigen Negative (Negative); ~Hepatitis B Surface Antibody NONREACTIVE (Nonreactive)
[2024-11-25 09:22] LABS: HBc Num1 0.10 S/CO (0.00-0.79); HBsAGNum1 0.37 S/CO (0.00-0.99); Hepatitis A Antibody IgM 0.21 Index (0-0.79); ~HepC Num1 0.39 S/CO (0.00-0.79); ~Hepatitis A Antibody IgM Nonreactive (Nonreactive); ~Hepatitis C Antibody Nonreactive (Nonreactive)
[2024-11-26 19:18] LABS: TS Negative Control Passed; TS Panel A 0; TS Panel B 2; TS Positive Control Passed; TSpotTB Negative (Negative)
== END 2024-11-24 09:48 | disposition home or self-care (01) ==
LOC: HO.HMGCLDS 09:47
PROVIDERS: PCP Nurse Practitioner Family; Visit Provider Student in an Organized Health Care Education/Training Program
DX: Z11.59 Encounter for screening for other viral diseases (principal); Z11.1 Encounter for screening for respiratory tuberculosis; M05.9 Rheumatoid arthritis with rheumatoid factor, unspecified; Z79.899 Other long term (current) drug therapy
CPT/HCPCS: 36415; 80053; 85007; 85027; 85652; 86140; 86481; 86704; 86706; 86709; 86803; 87340

== ENCOUNTER 2024-12-03 10:29 | Outpatient (AMB) | payer MEDICARE, SELFPAY ==
--- NOTE | 2024-12-03 10:45 | A.OFFVIS_ITS ---
Vital Signs 12/03/24 10:52 Height 5 ft 11 in Weight 220 lb 0.341 oz BMI 30.7 BP 132/80 Blood Pressure Location Lt brachial Position Sitting Pulse 77 Pulse Source Pulse Oximeter Pulse Oximetry (%) 98 Oxygen Delivery Method Room Air Intake Visit Reasons: follow up Intake Note: Patient presents for RA follow up. Allergies Sulfa (Sulfonamide Antibiotics) Allergy (Intermediate, Verified 10/15/24 09:06) rash HPI Comments Details: Patient is a 69-year-old male current everyday smoker with hyperlipidemia complicated by abdominal aortic aneurysm, aortic stenosis, hypertension, prostate cancer, hyperparathyroidism and seropositive RA here today for follow up Interval History: Patient last seen 07/25/24 with me - MRI of hands done showing synovitis - started on Mtx Only took the methotrexate for 3 weeks, stated that he had fatigue and GI issues Today - Does not want to take medication, states he feels fine Rheumatologic History: Seropositive RA ++RF/+++CCP Synovitis on MRI of bilateral hands Initial history by me: Patient is a 69-year-old male current everyday smoker with hyperlipidemia complicated by abdominal aortic aneurysm, aortic stenosis, hypertension, prostate cancer and hyperparathyroidism here today for evaluation of polyarthralgias in the setting of positive rheumatoid factor Joint pain: - knuckles bilateral hands - bilateral shoulders Has been ongoing for several years. Worse in the morning when he gets out of bed, but then would be fine throughout the day Does also have stiffness in the hands and back The stiffness in the hand has lasts about 15 mins Also has been having intermittent swelling involving the face that responds to antihistamines Left hand with CTS (EMG proven) - currently uses splints intermittently Family history: Parents had OA Brother had JRA Current Rheumatology Medication(s): Methotrexate 15mg PO weekly (not taking) Folic acid 1 mg daily (not taking) [facility] Medical History Seropositive rheumatoid arthritis Murmur Nicotine dependence, cigarettes, uncomplicated History of prostate cancer Hyperparathyroidism Vitamin D deficiency Adrenal adenoma Obesity (BMI 30.0-34.9) Liver cyst Renal cyst, left Dyslipidemia Primary hyperparathyroidism Adrenal nodule Hypercalcemia Surgical History Hx of prostate biopsy (02/2022) History of tonsillectomy History of parathyroidectomy History of esophagogastroduodenoscopy (EGD) (07/2022) History of colonoscopy (07/2022) Family History Brother Myocardial infarct Social History Housing: House Alcohol intake: current Alcohol intake frequency: 0-2 drinks per day Alcohol type: beer Patient Tobacco Use Status: Current everyday Tobacco user Tobacco use type: Cigarette Cigarettes Per Day: 10 Years Smoked: onset 14, 1ppd x 52yrs, 50PYH e-Cigarette/Vaping Use: Never Used Second Hand Smoke Exposure: Yes service: No Current occupational status: retired 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[employer] Cognitive needs: No Hearing needs: No Vision needs: Yes Review of Systems Const Details: Review of Systems Constitutional: Denies fever, chills, weight loss ENT: Denies vision changes, eye pain or eye redness, dental caries, dry mouth GI: Denies nausea, vomiting, diarrhea, abdominal pain, change in BM Pulm: Denies SOB, STINSON, hemoptysis, wheezing Cards: Denies chest pain, palpitations Skin: Denies Raynaud's, rash, nail changes, photosensitivity, POWER LINEWORKER: Denies headaches, weakness, paresthesias, recurrent falls MSK: as per HPI All other systems reviewed and are unremarkable except noted above Physical Exam Exam Exam: Vital signs reviewed Physical Examination CONSTITUITIONAL Patient alert and cooperative. Well appearing and in no apparent painful distress MSK Hands * Right Hand: Able to make a fist. No swelling or tenderness to palpation of these joints. No deformities noted. * Left Hand: Able to make a fist. No swelling or tenderness to palpation of these joints. No deformities noted. * Herbedens nodes noted bilaterally Wrists * Right Wrist: Full ROM. 70 degrees of wrist flexion, 80 degrees of wrist extension. No swelling or TTP * Left Wrist: Full ROM. 70 degrees of wrist flexion, 80 degrees of wrist extension. No swelling or TTP Elbows * Right Elbow: Full ROM. No swelling or TTP. No TTP of the medial and lateral epicondyles * Left Elbow: Full ROM. No swelling or TTP. No TTP of the medial and lateral epicondyles Shoulders * Right shoulder: Full ROM. No swelling noted. No TTP of the AC joint, subacromial bursa or posterior shoulder * Left shoulder: Full ROM. No swelling noted. No TTP of the AC joint, subacromial bursa or posterior shoulder Knees * Right knee: Full ROM. No swelling noted. No TTP of the knee joint lie or pes anserine bursa * Left knee: Full ROM. No swelling noted. No TTP of the knee joint lie or pes anserine bursa. * Crepitations felt bilaterally Ankles * Right ankle: Good ankle dorsiflexion and plantar flexion. No swelling. No TTP of the ankle joint * Left ankle: Good ankle dorsiflexion and plantar flexion. No swelling. No TTP of the ankle joint Feet * Right foot: Negative squeeze test * Left foot: Negative squeeze test Tender points? * No tenderness to palpation of the bilateral trapezius, supraspinatus, anterior costochondral junctions, bilateral suboccipital muscle insertions SKIN rash over the knees Vital Signs: Last Vital Signs Pulse 77 12/03/24 10:52 BP 132/80 12/03/24 10:52 Pulse Ox 98 12/03/24 10:52 Oxygen Delivery Method Room Air 12/03/24 10:52 BMI result Body Mass Index 30.7 Results Reviewed Results Reviewed: Laboratory Tests 10/27/20 07/04/24 11/24/24 17:32 11:48 09:54 WBC RBC Hgb Hct Plt Count ESR 17 H Sodium 139 Potassium 4.0 Chloride 107 Carbon Dioxide 24 BUN 12 Creatinine 0.76 AST 21 ALT 27 Alkaline Phosphatase 67 C-Reactive Protein 1.24 H 0.41 0.65 H 11/24/24 09:56 WBC 9.3 RBC 4.93 Hgb 15.7 Hct 45.4 Plt Count 261 ESR 14 Sodium Potassium Chloride Carbon Dioxide BUN Creatinine AST ALT Alkaline Phosphatase C-Reactive Protein Laboratory Tests 07/04/24 11:48 Rheumatoid Factor 61.1 H Cycl Citrul Peptide IgG >250 H Bilateral Hand MRI 07/2024 Findings (Left hand): There is a severe amount of edema in the visualized carpal bones. Edema extends to proximal 2nd through 5th metacarpals to the proximal diaphysis. There is sparing of the 1st metacarpal aside from a small amount of edema in the 1st metacarpal head.Extensive multifocal cystic change and erosions throughout the wrist and hand centered upon the joint spaces most prominent at the wrist, 1st metacarpophalangeal and 2nd through 5th proximal interphalangeal joints. There is moderate joint space narrowing and osteophytosis. The musculature is normal in signal and bulk. Unremarkable vasculature. Normal alignment. There is carpal fluid. Intact tendons. The median nerve is not increased in size. There is no edema or significant loss of fat within the carpal tunnel. Impression: Severe amount of edema in the carpal bones which extends into 2nd through 5th metacarpals which is favored to be of an inflammatory etiology. Correlate clinically for signs/symptoms of infection to exclude an infectious etiology. Cystic change and erosions most prominent at the wrist and the proximal interphalangeal joints. Correlate with laboratory values. The distribution favors rheumatoid arthritis. Findings (Right hand): There is a moderate amount of bone marrow edema in the 3rd metacarpal head. There is a trace amount of edema in 4th proximal phalanx at the distal aspect. Extensive multifocal cystic change and erosions throughout the wrist and hand centered upon the joint spaces most prominent at the metacarpophalangeal and proximal interphalangeal joints. There is moderate joint space narrowing and mild osteophytosis. The musculature is normal in signal and bulk. Unremarkable vasculature. Normal alignment. No joint effusion. Intact tendons. Impression: Edema and cystic change, detailed above. The distribution favors rheumatoid arthritis. Assessment & Plan Assessment & Plan (1) Seropositive rheumatoid arthritis: Comment: ++RF/+++CCP Ddx. 07/2024: Methotrexate - did not tolerate Code(s): M05.9 - Rheumatoid arthritis with rheumatoid factor, unspecified Category: Medical Plan: #Seropositve RA Patient is a 69-year-old male with newly diagnosed seropositive rheumatoid arthritis. Did not tolerate mtx. Patient would like to be monitored off medication Plan - RTC 6 months - Labs before visit: CBC, CMP, ESR, CRP (2) Angioedema: Code(s): T78.3XXA - Angioneurotic edema, initial encounter Category: Medical Qualifiers: Encounter type: initial encounter Qualified Code(s): T78.3XXA - Angioneurotic edema, initial encounter Plan: #Angioedema Patient with recurrent swelling to face likely angioedema. Discussed antihistamine as a treatment. Consider montelukast in the future if patient requests Plan I spent 25 minutes reviewing the record and labs, taking a history, examining the patient, discussing the treatment plan, ordering diagnostic work up and documenting in the medical record Coding Level of Care Code Est Pt Level 3 (28553) Complex EM visit Add On G2211 Diagnoses Seropositive rheumatoid arthritis M05.9 Angioedema, initial encounter T78.3XXA Encounter type: initial encounter
[2024-12-03 10:52] VITALS: BP 132/80; PULSE 77; O2SAT 98; BMI 30.7
--- OUTSIDE RECORDS SUMMARY | 2024-12-03 11:24 | XMS_ITS | Patient Health Record ---
Author Organization [facility] Address [address] [place] [address] Care Team Providers Care Pmp Name Role Phone Nahid Webster M.D. Primary [...] Insured Coverage Start Date Coverage End Date [facility] PROFESSIONAL CLAIMS [address] [place] [address] [phone] [id number] ROSEN Self - patient is the insured Medical (General) History Medical History History ICD Code Denies SD,DM,CVA,Lung disease,renal dise ase
--- OUTSIDE RECORDS SUMMARY | 2024-12-03 11:24 | XMS_ITS | Patient Health Record ---
Author Organization [facility] Address [address] [place] [address] Care Team Providers Care Silk Printer Name Role Phone Everardo Bates Primary Care Provider Unajustin comer WestonJoni Unavailable [phone] Allergies Allergen (clinical drug ingredient) Drug/Non Drug [...] Status Risk Notes Problem Acquired hallux valgus (03702619) Hallux valgus (acquired), left foot (M20.12) Active confirmed Problem Non-pressure chronic ulcer of other part of right foot with fat layer exposed (L97.512) Active confirmed Problem Chronic ulcer of foot (339564666) Non-pressure chronic ulcer of other part of left foot with fat layer exposed (L97.522) Active confirmed Problem Localized, primary osteoarthritis of the ankle and/or foot (061756358) Primary osteoarthrit is, right ankle and foot (M19.071) Active confirmed Problem Acquired hallux valgus (72056151) Hallux valgus (acquired), right foot (M20.11) Active confirmed Plan Of Treatment Pending Test Test Name Order Date X ray : Foot, left 3V 11/23/2021 X ray : Foot, right 3V 11/23/2021 X ray : Foot, right 3V 12/31/2019 [id number] SKIN/TISSUE 09/12/2021 X ray : Ankle, right 3V 10/06/2019 X ray : Ankle, right 3V 05/09/2021 X ray : Ankle, right 3V 11/23/2021 Insurance Providers Payer Name Payer Address Payer Phone Subscriber Number Group Number Insured Name Patient Relationship to Insured Coverage Start Date Coverage End Date BlueCare 65 Medicare Preferred [address] [place] [address] [id number] Leif Kramer Self - patient is the insured Medical (General) History Medical History History ICD Code Back,Hip,and Knee pain Measles Mumps Chicken pox Surgical History Surgery Date(Month/Year) parathyroidectomy Xrays R Ankel ap/lat/lo 10/06/19
--- OUTSIDE RECORDS SUMMARY | 2024-12-03 11:24 | XMS_ITS | Encounter Summary ---
Author Organization [facility] Address [address] [facility] [address] [place] [address] Phone Care Team Providers Care Datastage Consultant Name Role Phone Nahid Webster MD Primary Care Provider [phone]- [phone] Reason for Referral * Imaging (Routine) - Closed Specialty Diagnoses / Procedures Referred By Ava gillis Referred To Contact Diagnoses Adrenal adenoma <Unspecified side> Procedures CT Abdomen Pelvis w and wo IV Contrast Guerrero Patel MD Referral ID Status Reason Start Date Expiration Date Visits Re quested Visits Authorized [id number] Closed 09/28/2020 03/27/2021 1 1 Encounter Details Date Type Department Care Team (Late st Contact Info) Description 09/09/2020 Orders Only [facility] [address] [place] [address] Guerrero Patel MD Acquired renal cystic disease [...] eGFR (Calc) >60 [place] Comment: NOTE: For -Nepalese individuals, multiply the result by 1.210. Chronic [...] ORDERABLES Final Res ult Performing Organization Address [facility]/State/ZIP Co de Phone Number [place] * Electrolyte [...] BLOOD ORDERABLES Final Res ult [place] * Magnesium (10/01/2020 1:59 PM EDT) Magnesium 2.2 1.6 - 2.6 mg/dL [place] Blood specimen (specimen) Venous blood / Unknown 10/01/2020 1:59 PM EDT 10/01/2020 1:59 PM EDT Guerrero Patel MD LAB BLOOD ORDERABLES Final Res ult Performing Organization Address [facility] de Phone Number [place] * Vitamin D [...] ORDERABLES Final Res ult Performing Organization Address [facility] de Phone Number [place] * (ABNORMAL) CBC and differential (10/01/2020 1:59 PM EDT) WBC 8.8 4.8 - 10.8 X10*3/uL [place] RBC 5.01 4.60 - 5.80 X10*6/uL [place] Hgb 15.9 14.0 - 18.0 g/dl [place] Hematocrit 46.9 42 - 52 % [place] MCV 93.6 80 - 98 fL [place] MCH 31.7 27.0 - 33.0 pg [place] MCHC 33.9 31.0 - 36.0 g/dl [place] RDW 12.8 11.0 - 16.0 % [place] [...] Hypercalcemia documented in this encounter Care Teams Datastage Consultant Relationship Specialty Start Date End Date Nahid Webster MD [facility] [address] [place], [place] PCP - General 05/17/20 documented as of this encounter
== END 2024-12-03 11:26 | disposition home or self-care (01) ==
LOC: HO.RHE 10:30
PROVIDERS: PCP Nurse Practitioner Family; Visit Provider Student in an Organized Health Care Education/Training Program
DX: M05.79 Rheumatoid arthritis with rheumatoid factor of multiple sites without organ or systems involvement (principal); T78.3XXA Angioneurotic edema, initial encounter
CPT/HCPCS: 99213; G2211

== ENCOUNTER → 2024-12-03 10:29 | Outpatient (BNVA) | payer MEDICARE, SELFPAY | PROVIDERS: PCP Nurse Practitioner Family; Visit Provider Student in an Organized Health Care Education/Training Program | DX: T78.3XXA Angioneurotic edema, initial encounter (principal); E78.5 Hyperlipidemia, unspecified; M05.9 Rheumatoid arthritis with rheumatoid factor, unspecified; F17.210 Nicotine dependence, cigarettes, uncomplicated; I10 Essential (primary) hypertension; C61 Malignant neoplasm of prostate | CPT/HCPCS: 99212 ==

== ENCOUNTER → 2025-01-01 11:06 | Outpatient (BNVA) | payer SELFPAY | PROVIDERS: PCP Nurse Practitioner Family; Visit Provider Physician Assistant Medical | DX: Z02.79 Encounter for issue of other medical certificate (principal) ==

== ENCOUNTER → 2025-01-08 08:41 | Outpatient (REF) | payer SELFPAY ==
--- NOTE | ~2025-01-08 | NM_ITS ---
EXERCISE MYOCARDIAL PERFUSION STUDY INDICATION: Aortic stenosis to evaluate for myocardial ischemia TECHNIQUE: The patient was brought in for an exercise perfusion study on 01/08/2025. Patient performed exercise as per [place] protocol and was injected 30 mCi of sestamibi once target heart rate was achieved. Images were obtained using the SPECT gamma camera interlaced with the gating device. Images were obtained in supine position. Resting perfusion study was performed on 01/13/2025. Patient was administered 30 mCi of sestamibi intravenously at rest. Images were then obtained in supine position. Images were processed with the software and compared side to side in short axis, horizontal long axis and vertical long axis views. FINDINGS: Raw images were reviewed The stress perfusion study showed nonattenuated images show mildly reduced uptake in the basal inferior and mid inferior wall of the LV myocardium. Remainder of the LV myocardium is normally perfused. Attenuated corrected images show normal uptake of radiotracer in all segments of the LV myocardium.. The gated study shows normal LV systolic function with calculated LVEF of greater than 70%. LV cavity is normal in size. The gated study shows normal systolic wall thickening and contraction of segments. Resting study shows nonattenuated images show improved uptake in the mid inferior wall of the LV myocardium. Attenuated corrected images show mildly reduced uptake in the apex of the LV myocardium Gating at rest reveals normal systolic wall motion with ejection fraction at greater than 70%. The findings are consistent with likely normal myocardial perfusion. NM/NM cardiolite stress test IMPRESSION: 1. Myocardial perfusion imaging study shows [likely normal myocardial perfusion. 2. Gated LVEF is greater than 70%. 3. Transient ischemic dilatation . [place]. EKG revealed negative for ischemia. Electronically signed by: Lisandro Fernández MD 01/13/2025 03:36 PM EDT
--- NOTE | 2025-01-08 08:43 | CA_ITS ---
Acquisition Time: 2025-01-08 09:30:50 Total Exercise Time: 00:08:00 Test Indications: AORTIC STENOSIS, HTN, ASTHD SMOKER Medications: Protocol: CAMRYN Max HR: 129 BPM 87% of Pred: 148 BPM Max BP: 140/78 mmHG Max Work Load: 7.6 METS Exercise stress test with exercise 8 mins of Camryn Protocol, with reduced speed at 2.5mph due to right ankle pain, achieving 85% MPHR, with reports of SOB, no chest pain, with isolated PVCs, with normotensive response to exercise. Without any EKG changes meeting criteria for ischemia. In recovery, breathing returned to baseline. Nuclear images pending. Test reviewed with Dr. Bloom. Referred By: Everardo Rasmussen Electronically Signed By: Surya Blanton
--- OUTSIDE RECORDS SUMMARY | 2025-01-08 09:12 | XMS_ITS | Patient Health Record ---
Author Organization [facility] Address [address] [place] [address] Care Team Providers Care Child Development Instructor Name Role Phone Nahid Webster M.D. Primary [...] Insured Coverage Start Date Coverage End Date [facility] PROFESSIONAL CLAIMS [address] [place] [phone] [id number] Self - patient is the insured Medical (General) History Medical History History ICD Code Denies NE,DM,CVA,Lung disease,renal dise ase
--- OUTSIDE RECORDS SUMMARY | 2025-01-08 09:12 | XMS_ITS | Encounter Summary ---
Author Organization [facility] Address [address] [facility] [address] [place] [address] Phone Care Team Providers Care Ore Bridge Operator Name Role Phone Nahid Webster MD Primary Care Provider +1- [phone] Reason for Referral * Imaging (Routine) - Closed Specialty Diagnoses / Procedures Referred By Ava gillis Referred To Contact Diagnoses Adrenal adenoma <Unspecified side> Procedures CT Abdomen Pelvis w and wo IV Contrast Guerrero Patel MD Referral ID Status Reason Start Date Expiration Date Visits Re quested Visits Authorized [id number] Closed 09/28/2020 03/27/2021 1 1 Encounter Details Date Type Department Care Team (Late st Contact Info) Description 09/09/2020 Orders Only [facility] [address] [place] [address] Guerrero Patel MD Acquired renal cystic disease [...] eGFR (Calc) >60 [place] Comment: NOTE: For -Ukrainian individuals, multiply the result by 1.210. Chronic [...] Res ult Performing Organization Address [facility]/State/ZIP Co de Phone Number [place] * [...] Res ult Performing Organization Address [facility] de Phone Number [place] * Vitamin D 25 hydroxy (10/01/2020 1:59 PM EDT) Vitamin D, 25-Hydroxy 36.6 >30 ng/mL [facility] Comment: Health Based Reference Values* [...] Res ult Performing Organization Address [facility] de Phone Number [place] * (ABNORMAL) CBC and differential (10/01/2020 1:59 PM EDT) WBC 8.8 4.8 - 10.8 X10*3/uL [place] RBC 5.01 4.60 - 5.80 X10*6/uL [place] Hgb 15.9 14.0 - 18.0 g/dl [place] Hematocrit 46.9 42 - 52 % [place] MCV 93.6 80 - 98 fL [place] MCH 31.7 27.0 - 33.0 pg [place] MCHC 33.9 31.0 - 36.0 g/dl [place] RDW 12.8 11.0 - 16.0 % [place] [...] Hypercalcemia documented in this encounter Care Teams Ore Bridge Operator Relationship Specialty Start Date End Date Nahid Webster MD [facility] [address] [place], [place] PCP - General 05/17/20 documented as of this encounter
--- OUTSIDE RECORDS SUMMARY | 2025-01-08 09:12 | XMS_ITS | Patient Health Record ---
Author Organization [facility] Address [address] [facility] 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 exposed (L97.522) Active confirmed Problem Localized, primary osteoarthritis of the ankle and/or foot (396792036) Primary osteoarthrit is, right ankle and foot (M19.071) Active confirmed Problem Acquired hallux valgus (03747610) Hallux valgus (acquired), right foot (M20.11) Active confirmed Plan Of Treatment Pending Test Test Name Order Date X ray : Foot, left 3V 11/23/2021 X ray : Foot, right 3V 11/23/2021 X ray : Foot, right 3V 12/31/2019 [id number] SKIN/TISSUE 09/12/2021 X ray : Ankle, right 3V 10/06/2019 X ray : Ankle, right 3V 05/09/2021 X ray : Ankle, right 3V 11/23/2021 Insurance Providers Payer Name Payer Address Payer Phone Subscriber Number Group Number Insured Name Patient Relationship to Insured Coverage Start Date Coverage End Date BlueCare 65 Medicare Preferred [address] [place] [address] [id number] Leif Kramer Self - patient is the insured Medical (General) History Medical History History ICD Code Back,Hip,and Knee pain Measles Mumps Chicken pox Surgical History Surgery Date(Month/Year) parathyroidectomy Xrays R Ankel ap/lat/lo 10/06/19
--- OUTSIDE RECORDS SUMMARY | 2025-01-08 09:13 | XMS_ITS | Clinical Summary ---
Author Organization [facility] Address [address] [address] Care Team Providers Care Inspector Exhaust Emissions Name Role Phone Nahid Webster MD Primary Care Provider +1- [phone] Active Problems Problem Noted Date Diagnosed Date [...] Cancer Screening: Sigmoidoscopy 2002 Influenza Vaccine (#1) 2025 Hepatitis B Vaccine Aged Out No longe r eligible based on patient's age to complete this topic Insurance [facility] Care Teams Inspector Exhaust Emissions Relationship Specialty Start Date End Date Nahid Webster MD [facility] [address] [place], [place] PCP - General 05/17/20
== END ==
LOC: HO.CARD 08:41
PROVIDERS: PCP Nurse Practitioner Family; Visit Provider Nurse Practitioner Family
DX: I35.0 Nonrheumatic aortic (valve) stenosis (principal); I10 Essential (primary) hypertension; I70.90 Unspecified atherosclerosis; F17.200 Nicotine dependence, unspecified, uncomplicated
CPT/HCPCS: 78452; 93017; A9500

== ENCOUNTER → 2025-01-08 08:43 | Outpatient (BNV) | payer MEDICARE, SELFPAY | PROVIDERS: PCP Nurse Practitioner Family | DX: I49.3 Ventricular premature depolarization (principal); R06.02 Shortness of breath | CPT/HCPCS: 93016; 93018 ==

== ENCOUNTER 2025-01-19 08:47 | Outpatient (AMB) | payer MEDICARE, SELFPAY ==
--- NOTE | 2025-01-19 08:54 | A.OFFVIS_ITS ---
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 He is a pleasant 70-year-old male long-term smoker heavy smoker along with hypertension, hyperlipidemia. Patient also has prior history of angioedema of unclear etiology. Patient was noted to have a murmur and underwent an echocardiogram in April last year which showed jdqd-[id number] aortic stenosis. He also recently underwent a stress test for possible symptoms of shortness of breath which was good at a good workload with no evidence of ischemia. He takes aspirin every day as well as takes pravastatin for his lipids as he could not tolerate other statin therapy. His last LDL was 86 mg/dL. He denies any exertional chest pain. Denies any exertional lightheadedness, syncope. He said he has had murmur all his life. He has issues with arthritis mostly in his back which leads to intermittent back pain for which she then takes Motrin to relieve his pain. He denies any orthopnea, PND, leg edema. [facility] Medical History (Updated 01/19/25 @ 09:33 by Lisandro Fernández MD) Seropositive rheumatoid arthritis Nicotine dependence, cigarettes, uncomplicated History of prostate cancer Hyperparathyroidism Vitamin D deficiency Adrenal adenoma Obesity (BMI 30.0-34.9) Liver cyst Renal cyst, left Dyslipidemia Primary hyperparathyroidism Adrenal nodule Hypercalcemia Surgical History Hx of prostate biopsy (02/2022) History of tonsillectomy History of parathyroidectomy History of esophagogastroduodenoscopy (EGD) (07/2022) History of colonoscopy (07/2022) Family History Brother Myocardial infarct Social History Housing: House Alcohol intake: current Alcohol intake frequency: 0-2 drinks per day Alcohol type: beer Patient Tobacco Use Status: Current everyday Tobacco user Tobacco use type: Cigarette Cigarettes Per Day: 10 Years Smoked: onset 14, 1ppd x 52yrs, 50PYH e-Cigarette/Vaping Use: Never Used Second Hand Smoke Exposure: Yes service: No Current occupational status: retired 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[employer] Cognitive needs: No Hearing needs: No Vision needs: Yes Review of Systems Const Denies chills, Denies daytime sleepiness, Denies fatigue, Denies fever(s), Denies poor appetite, Denies snoring, Denies stops breathing during sleep, Fabrizio es weight gain and Denies weight loss Eyes Denies loss of vision Card Denies chest pain, Denies claudication, Denies leg edema, Denies lightheadedness , Denies palpitations, Denies dyspnea, Denies dyspnea on exertion and Denies orthopnea Resp Denies cough, Denies excessive phlegm production, Denies pain with cough, Denies dyspnea, Denies dyspnea on exertion, Denies snoring, Denies wheezing and Denies other GI Denies abdominal pain, Denies hematochezia, Denies change in bowel habits, Denies nausea and Denies vomiting Denies dysuria and Denies urinary frequency Musc Denies arthralgias and Denies muscle weakness Skin/Breast Denies nail changes and Denies rash Neuro Denies loss of vision and Denies memory loss Psych Denies depression, Reports difficulty concentrating, Denies auditory hallucinations and Denies memory loss Endo Denies fatigue and Denies palpitations Augustine/Lymph Denies easy bruising Aller/Immun Denies wheezing Physical Exam Vital Signs: Last Vital Signs Pulse 76 01/19/25 08:55 BP 128/58 L 01/19/25 08:55 BMI result Body Mass Index 31.1 Const General: cooperative, comfortable, no acute distress, alert, awake and Physically active Nutritional Appearance: overweight Orientation/consciousness: patient oriented x3 Limitations: no limitations HEENT Head: Yes normocephalic and Yes atraumatic Neck Neck: Yes trachea midline, Yes supple and Yes no JVD Resp Effort & Inspection: normal respiratory effort Auscultation: clear to auscultation bilaterally and diminished lung sounds Cardio Jugular venous distension: no JVD Palpation: normal PMI Rate: regular rate Rhythm: regular rhythm Heart sounds: S1 normal heart sound present, S2 normal heart sound present, no click, no gallops and Murmur heart sound present systolic mid, decrescendo and crescendo GI Auscultation: normal bowel sounds Skin General skin exam: no rashes or lesions noted Neuro General: patient oriented x3 and no focal motor deficits Extrem General: Yes no clubbing, cyanosis or edema Psych Appearance: grossly normal Office Procedures EKG Details: EKG shows normal sinus rhythm normal EKG 03579-[id number], Complete Assessment & Plan Assessment & Plan (1) Aortic stenosis: Code(s): I35.0 - Nonrheumatic aortic (valve) stenosis Category: Medical Plan: Aortic stenosis in this elderly gentleman which is [id number]. Clinically causing no symptoms. He has recent stress test which was negative for ischemia with good workload. We discussed about pathophysiology of aortic stenosis and gradually progressive nature of aortic stenosis. Cardinal symptoms of severe aortic stenosis were discussed. He is currently on low-dose aspirin therapy which should be continued for life. Also on pravastatin therapy which is low intensity statin therapy although his LDL is 86 mg/dL. He is not willing to transition to high-intensity statin therapy as he recalls having side effects to 1 of the other medications. He is very concerned about GI side effects of all his medications. He is encouraged to continue to participate in physical activity as tolerated. Negative effects of long-term smoking especially progressive cardiovascular disease were discussed with him. He is not interested in quitting smoking. He was also advised to moderate his alcohol intake. Follow-up echocardiogram in 1 year's time. Will follow up in the clinic in 1 year's time, sooner PRN. Thank you for allowing me to partake in his care Coding Level of Care Code New Pt Level 4 (47685) Complex EM visit Add On G2211 Diagnoses Aortic stenosis I35.0 CPT Codes EKG - CPT: 51321-[id number], Complete ([id number])
[2025-01-19 08:55] VITALS: BP 128/58; PULSE 76; BMI 31.1
--- OUTSIDE RECORDS SUMMARY | 2025-01-19 10:02 | XMS_ITS | Encounter Summary ---
Author Organization [facility] Address [address] [facility] [address] [place] [address] Phone Care Team Providers Care City Routeman Name Role Phone Nahid Webster MD Primary Care Provider +1- [phone] Reason for Referral * Imaging (Routine) - Closed Specialty Diagnoses / Procedures Referred By Ava gillis Referred To Contact Diagnoses Adrenal adenoma <Unspecified side> Procedures CT Abdomen Pelvis w and wo IV Contrast Guerrero Patel MD Referral ID Status Reason Start Date Expiration Date Visits Re quested Visits Authorized [id number] Closed 09/28/2020 03/27/2021 1 1 Encounter Details Date Type Department Care Team (Late st Contact Info) Description 09/09/2020 Orders Only [facility] [address] [place] [address] Guerrero Patel MD Acquired renal cystic disease [...] eGFR (Calc) >60 [place] Comment: NOTE: For -Senegalese individuals, multiply the result by 1.210. Chronic [...] ORDERABLES Final Res ult Performing Organization Address [facility]/State/ZIP Co de Phone Number [place] * Electrolyte [...] ORDERABLES Final Res ult Performing Organization Address [facility] de Phone Number [place] * Vitamin D 25 hydroxy (10/01/2020 1:59 PM EDT) Vitamin D, 25-Hydroxy 36.6 >30 ng/mL [facility] Comment: Health Based Reference Values* < [...] ORDERABLES Final Res ult Performing Organization Address [facility] de Phone Number [place] * (ABNORMAL) CBC and differential (10/01/2020 1:59 PM EDT) WBC 8.8 4.8 - 10.8 X10*3/uL [place] RBC 5.01 4.60 - 5.80 X10*6/uL [place] Hgb 15.9 14.0 - 18.0 g/dl [place] Hematocrit 46.9 42 - 52 % [place] MCV 93.6 80 - 98 fL [place] MCH 31.7 27.0 - 33.0 pg [place] MCHC 33.9 31.0 - 36.0 g/dl [place] RDW 12.8 11.0 - 16.0 % [place] [...] Hypercalcemia documented in this encounter Care Teams City Routeman Relationship Specialty Start Date End Date Nahid Webster MD [facility] [address] [place], [place] PCP - General 05/17/20 documented as of this encounter
--- OUTSIDE RECORDS SUMMARY | 2025-01-19 10:03 | XMS_ITS | Patient Health Record ---
Author Organization [facility] [place] Address [address] [facility] [place] [address] Care Team Providers Care Electrodynamicist Name Role Phone Everardo Bates Primary Care Provider Unajustin comer WestonJoni Unavailable [phone] Allergies Allergen (clinical drug ingredient) Drug/Non Drug [...] Status Risk Notes Problem Acquired hallux valgus (17965218) Hallux valgus (acquired), left foot (M20.12) Active confirmed Problem Non-pressure chronic ulcer of other part of right foot with fat layer exposed (L97.512) Active confirmed Problem Chronic ulcer of foot (087084460) Non-pressure chronic ulcer of other part of left foot with fat layer exposed (L97.522) Active confirmed Problem Localized, primary osteoarthritis of the ankle and/or foot (118970268) Primary osteoarthrit is, right ankle and foot (M19.071) Active confirmed Problem Acquired hallux valgus (09696512) Hallux valgus (acquired), right foot (M20.11) Active confirmed Plan Of Treatment Pending Test Test Name Order Date X ray : Foot, left 3V 11/23/2021 X ray : Foot, right 3V 12/31/2019 X ray : Foot, right 3V 11/23/2021 [id number] SKIN/TISSUE 09/12/2021 X ray : Ankle, right 3V 10/06/2019 X ray : Ankle, right 3V 11/23/2021 X ray : Ankle, right 3V 05/09/2021 Insurance Providers Payer Name Payer Address Payer Phone Subscriber Number Group Number Insured Name Patient Relationship to Insured Coverage Start Date Coverage End Date BlueCare 65 Medicare [address] [place] [address] [id number] Leif Kramer Self - patient is the insured Medical (General) History Medical History History ICD Code Back,Hip,and Knee pain Measles Mumps Chicken pox Surgical History Surgery Date(Month/Year) parathyroidectomy Xrays R Ankel ap/lat/lo 10/06/19
--- OUTSIDE RECORDS SUMMARY | 2025-01-19 10:03 | XMS_ITS | Patient Health Record ---
Author Organization [facility] Address [address] [place] [address] Care Team Providers Care Form Grader Operator Name Role Phone Nahid Webster M.D. [...] Insured Coverage Start Date Coverage End Date [facility] PROFESSIONAL CLAIMS [address] [place] [address] [phone] [id number] Self - patient is the insured Medical (General) History Medical History History ICD Code Denies RI,DM,CVA,Lung disease,renal dise ase
--- OUTSIDE RECORDS SUMMARY | 2025-01-19 10:03 | XMS_ITS | Clinical Summary ---
Author Organization [facility] Address [address] [address] Care Team Providers Care Picture Frame Maker Name Role Phone Nahid Webster MD Primary Care Provider +1- [phone] Active Problems Problem Noted Date Diagnosed Date [...] patient's age to complete this topic Insurance [facility] Care Teams Picture Frame Maker Relationship Specialty Start Date End Date Nahid Webster MD [facility] [address] [place], [place] PCP - General 05/17/20
== END 2025-01-19 09:29 | disposition home or self-care (01) ==
LOC: HO.HCS 08:48
PROVIDERS: PCP Nurse Practitioner Family; Visit Provider Internal Medicine Cardiovascular Disease
DX: I35.0 Nonrheumatic aortic (valve) stenosis (principal)
CPT/HCPCS: 93010; 99214; G2211

== ENCOUNTER → 2025-01-19 08:47 | Outpatient (BNVA) | payer MEDICARE, SELFPAY | PROVIDERS: PCP Nurse Practitioner Family; Visit Provider Internal Medicine Cardiovascular Disease | DX: I35.0 Nonrheumatic aortic (valve) stenosis (principal) | CPT/HCPCS: 93005; 99212 ==

== ENCOUNTER 2025-02-04 06:45 | Outpatient (REF) | payer MEDICARE, SELFPAY ==
--- OUTSIDE RECORDS SUMMARY | 2025-02-04 06:47 | XMS_ITS | Patient Health Record ---
Author Organization [facility] Address [address] [place] [address] Care Team Providers Care Blast Furnace Checker Name Role Phone Nahid Webster M.D. Primary [...] Insured Coverage Start Date Coverage End Date [facility] PROFESSIONAL CLAIMS [address] [place] [phone] [id number] Self - patient is the insured Medical (General) History Medical History History ICD Code Denies NE,DM,CVA,Lung disease,renal dise ase
--- OUTSIDE RECORDS SUMMARY | 2025-02-04 06:47 | XMS_ITS | Clinical Summary ---
Author Organization [facility] Address [address] [address] Care Team Providers Care Wage Adjuster Name Role Phone Nahid Webster MD Primary Care Provider +1- [phone] Active Problems Problem Noted Date Diagnosed Date [...] [facility] Care Teams Wage Adjuster Relationship Specialty Start Date End Date Nahid Webster MD [facility] [address] [place], [place] PCP - General 05/17/20
--- OUTSIDE RECORDS SUMMARY | 2025-02-04 06:47 | XMS_ITS | Encounter Summary ---
Author Organization [facility] Address [address] [facility] [address] [place] [address] Phone Care Team Providers Care Retail Special Event Associate Name Role Phone Nahid Webster MD Primary Care Provider +1- [phone] Reason for Referral * Imaging (Routine) - Closed Specialty Diagnoses / Procedures Referred By Ava gillis Referred To Contact Diagnoses Adrenal adenoma <Unspecified side> Procedures CT Abdomen Pelvis w and wo IV Contrast Guerrero Patel MD Referral ID Status Reason Start Date Expiration Date Visits Re quested Visits Authorized [id number] Closed 09/28/2020 03/27/2021 1 1 Encounter Details Date Type Department Care Team (Late st Contact Info) Description 09/09/2020 Orders Only [facility] [address] [place] [address] Guerrero Patel MD Acquired renal cystic disease [...] eGFR (Calc) >60 [place] Comment: NOTE: For -Namibian individuals, multiply the result by 1.210. Chronic [...] ORDERABLES Final Res ult Performing Organization Address [facility]/State/ZIP Co de Phone Number [place] * [...] ORDERABLES Final Res ult Performing Organization Address [facility] de Phone Number [place] * Vitamin D 25 hydroxy (10/01/2020 1:59 PM EDT) Vitamin D, 25-Hydroxy 36.6 >30 ng/mL [facility] Comment: Health Based Reference Values* < [...] ORDERABLES Final Res ult Performing Organization Address [facility] de Phone Number [place] * (ABNORMAL) CBC and differential (10/01/2020 1:59 PM EDT) WBC 8.8 4.8 - 10.8 X10*3/uL [place] RBC 5.01 4.60 - 5.80 X10*6/uL [place] Hgb 15.9 14.0 - 18.0 g/dl [place] Hematocrit 46.9 42 - 52 % [place] MCV 93.6 80 - 98 fL [place] MCH 31.7 27.0 - 33.0 pg [place] MCHC 33.9 31.0 - 36.0 g/dl [place] RDW 12.8 11.0 - 16.0 % [place] [...] Hypercalcemia documented in this encounter Care Teams Retail Special Event Associate Relationship Specialty Start Date End Date Nahid Webster MD [facility] [address] [place], [place] PCP - General 05/17/20 documented as of this encounter
--- OUTSIDE RECORDS SUMMARY | 2025-02-04 06:47 | XMS_ITS | Patient Health Record ---
Author Organization [facility] [place] Address [address] [facility] [place] [address] Care Team Providers Care Sorter Lumber Straightener Name Role Phone Everardo Bates Primary Care Provider Unajustin comer WestonJoni Unavailable [phone] Allergies Allergen (clinical drug ingredient) Drug/Non Drug [...] Status Risk Notes Problem Acquired hallux valgus (05284856) Hallux valgus (acquired), left foot (M20.12) Active confirmed Problem Non-pressure chronic ulcer of other part of right foot with fat layer exposed (L97.512) Active confirmed Problem Chronic ulcer of foot (661020976) Non-pressure chronic ulcer of other part of left foot with fat layer exposed (L97.522) Active confirmed Problem Localized, primary osteoarthritis of the ankle and/or foot (297748581) Primary osteoarthrit is, right ankle and foot (M19.071) Active confirmed Problem Acquired hallux valgus (05781611) Hallux valgus (acquired), right foot (M20.11) Active confirmed Plan Of Treatment Pending Test Test Name Order Date X ray : Foot, left 3V 11/23/2021 X ray : Foot, right 3V 11/23/2021 X ray : Foot, right 3V 12/31/2019 [id number] SKIN/TISSUE 09/12/2021 X ray : Ankle, right 3V 10/06/2019 X ray : Ankle, right 3V 05/09/2021 X ray : Ankle, right 3V 11/23/2021 Insurance Providers Payer Name Payer Address Payer Phone Subscriber Number Group Number Insured Name Patient Relationship to Insured Coverage Start Date Coverage End Date BlueCare 65 Medicare [address] [place] [address] [id number] Leif Kramer Self - patient is the insured Medical (General) History Medical History History ICD Code Back,Hip,and Knee pain Measles Mumps Chicken pox Surgical History Surgery Date(Month/Year) parathyroidectomy Xrays R Ankel ap/lat/lo 10/06/19
[2025-02-04 11:03] LABS: PSA,Total (Free>4and<10) 6.03 ng/mL (0.00-4.00)
[2025-02-05 12:22] LABS: Free Prostate Spec Ag 0.2 ng/mL; Percent Free Prostate Spec Ag 3 % (calc) (>25)
== END 2025-02-04 06:46 | disposition home or self-care (01) ==
LOC: HO.HMGCLDS 06:45
PROVIDERS: PCP Nurse Practitioner Family; Visit Provider Urology
DX: C61 Malignant neoplasm of prostate (principal); Z12.5 Encounter for screening for malignant neoplasm of prostate
CPT/HCPCS: 36415; 84153; 84154

== ENCOUNTER 2025-02-17 10:52 | Outpatient (AMB) | payer MEDICARE, SELFPAY ==
--- NOTE | 2025-02-17 10:50 | MHC.OFFVIS ---
Intake Visit Reasons: 4m/PSA Intake Note: patient presents today for: 4mo follow up urology medications: finasteride blood thinners: aspirin labs done 02/04/25: % fr PSA 3, total PSA 6.03, offsite 5.8 today's PVR: 160mls Whirley Operator Required: No Accompanied by: Self / Same As Patient Allergies Sulfa (Sulfonamide Antibiotics) Allergy (Intermediate, Verified 02/17/25 10:52) rash HPI Comments Details: Leif is a pleasant male. He is a patient of Dr. Wright. He is seen for the following urologic conditions - microscopic hematuria - elevated PSA - prostate cancer Lesion remains left prostate apex abutting margin PSA rising despite finasteride but slow Discussed targeted prostate cryotherapy given low grade disease Prostate cancer - Grade Group 1 - 02/25 Staging 05/31 left anterolateral peripheral anterior zone PI-RADS 5 prostate 30 g, unchanged Current therapy active surveillance 06/29 PSA 5, 11/26 3.6, 08/28 4.8 4%, 03/30 5.3, 10/29 4.8 6%, 02/[address] Barlow 02/25 Elevated PSA 5.5 US 30gm Histologic grade: Dara score: 3+3=6 Number cores positive: 5 (two more suspicious) LBL 5%, GERALDINE 50%, RBM 5%, RML 5%, RMM 30% % of tissue involved: 5-10% of all tissue examined Periprostatic fat inv, Seminal vesicle inv, Perineural inv, LVI: Not identified Total % - Staging 03/28 - MRI left anterior peripheral 8mm Pi-RADS 5 Microscopic Hematuria: Initial evaluation 2019 Microscopic hematuria was diagnosed during routine UA - atypical cells on evaluation. They are here for follow-up evaluation Since the last visit the patient has has not noticed gross hematuria. Relevant medical history for no pertinent medical history. 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 - 01/24 fish negative Therapeutic plan - Follow in 4 months on PSA [facility] Medical History (Updated 01/19/25 @ 09:33 by Lisandro Fernández MD) Seropositive rheumatoid arthritis Nicotine dependence, cigarettes, uncomplicated History of prostate cancer Hyperparathyroidism Vitamin D deficiency Adrenal adenoma Obesity (BMI 30.0-34.9) Liver cyst Renal cyst, left Dyslipidemia Primary hyperparathyroidism Adrenal nodule Hypercalcemia Surgical History Hx of prostate biopsy (02/2022) History of tonsillectomy History of parathyroidectomy History of esophagogastroduodenoscopy (EGD) (07/2022) History of colonoscopy (07/2022) Family History Brother Myocardial infarct Social History Housing: House Alcohol intake: current Alcohol intake frequency: 0-2 drinks per day Alcohol type: beer Patient Tobacco Use Status: Current everyday Tobacco user Tobacco use type: Cigarette Cigarettes Per Day: 10 Years Smoked: onset 14, 1ppd x 52yrs, 50PYH e-Cigarette/Vaping Use: Never Used Second Hand Smoke Exposure: Yes service: No Current occupational status: retired 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[employer] Cognitive needs: No Hearing needs: No Vision needs: Yes Review of Systems Const Denies chills and Denies fever(s) Card Reports no additional complaints and Denies syncope Resp Denies cough GI Denies abdominal pain and Denies heartburn Reports as per HPI and Denies change in libido Neuro Denies syncope Psych Denies change in libido Endo Denies change in libido Physical Exam Const General: cooperative, healthy appearing, comfortable and no acute distress Orientation/consciousness: patient oriented x3 HEENT Face and sinus: Yes normal facial exam Mouth: moist mucous membranes Neck Neck: Yes normal visual inspection, Yes full ROM and Yes trachea midline Chest Chest palpation & inspection: normal inspection of the chest Resp Effort & Inspection: normal respiratory effort, able to speak in complete sentences and no respiratory distress GI Inspection: Yes normal to inspection Back/Spine/Pelvis Cervical Spine: normal cervical lordosis Thoracic/Lumbar Spine: thoracic and lumbar spine normal to inspection Skin General skin exam: no rashes or lesions noted Neuro General: patient oriented x3, gait normal, tone normal and moves all extremities Extrem General: Yes normal to inspection and Yes capillary refill normal Office Procedures Post Void Residual Post Residual Void Post Void Residual (PVR): 160 [id number] Void Residual by ultrasound Assessment & Plan Assessment & Plan (1) Prostate cancer: Comment: 02/2522 Grade Group 1 - 5 cores Code(s): C61 - Malignant neoplasm of prostate Category: Medical Plan Risks and benefits regarding trans rectal ultrasound with prostate biopsy were discussed. Options of continued surveillance, no treatment and biopsy were offered. The risks include but are not limited to, urinary tract infection, sepsis, difficulty urinating, bleeding into the rectum or bladder that requires intervention and transfusion,and failure to diagnose prostate cancer. The patient understands the options and the risks involved. They wish to proceed. Printed information was provided to ensure he remains off anticoagulation for the appropriate length of time. He may require cardiology or PCP clearance. An antibiotic will be administered prior to, and following the procedure - targeted prostate biopsy Orders: Orders AMB Post Void Residual by ultrasound Today C61 - Malignant neoplasm of prostate Patient Instructions: This note is constructed using voice recognition software. While every effort has been made to ensure accuracy fiberglass roller errors may have been included. Imaging studies, laboratory and physical exam results were discussed and reviewed in detail. No major barriers to patient understanding were identified. An opportunity to ask questions regarding the treatment plan was provided. All questions were answered. The patient expressed understanding and agreement with the above treatment plan. The patient is aware they should contact our office by phone for worsening of their current condition or the appearance of new urologic symptoms. Compliance is encouraged with any medications and followup testing that is ordered. It is a privilege to participate in the urologic care of your patient. If you have any questions or concerns regarding treatment for the above conditions, or other urologic issues, please do not hesitate to contact me. The office telephone contact is [phone]. Sincerely, Dr Fernando Barlow MD, [facility] - Urology Compassionate Specialist Care for the Genitourinary System Coding Level of Care Code Est Pt Level 4 (32777) Diagnoses Prostate cancer C61 CPT Codes Post Residual Void - PVR CPT Code: 56229-Rrdg Void Residual by ultrasound ([id number])
--- OUTSIDE RECORDS SUMMARY | 2025-02-17 13:00 | XMS_ITS | Patient Health Record ---
Author Organization [facility] Address [address] [place] [address] Care Team Providers Care Machine Sprayer Name Role Phone Nahid Webster M.D. Primary [...] MG 1 capsule Orally Onc e a day; Duration: 30 day(s) 04/17/2012 05/07/2024 Active MoviPrep 100 GM as directed before c olonoscopy Orally; Duration: 1 dose 04/17/2012 05/07/2024 Active Plan Of Treatment Future Test Test Name Order Date COLONOSCOPY 04/17/2012 Insurance Providers Payer Name Payer Address Payer Phone Subscriber Number Group Number Insured Name Patient Relationship to Insured Coverage Start Date Coverage End Date [facility] [employer] CLAIMS [address] [place] [address] [phone] [id number] CANDELARIO ROSEN Self - patient is the insured Medical (General) History Medical History History ICD Code Denies [place],DM,CVA,Lung disease,renal dise ase
--- OUTSIDE RECORDS SUMMARY | 2025-02-17 13:00 | XMS_ITS | Encounter Summary ---
Author Organization [facility] Address [address] [facility] [address] [place] [address] Phone Care Team Providers Care Gunite Mixer Name Role Phone Nahid Webster MD Primary Care Provider [phone]- [phone] Reason for Referral * Imaging (Routine) - Closed Specialty Diagnoses / Procedures Referred By Ava gillis Referred To Contact Diagnoses Adrenal adenoma <Unspecified side> Procedures CT Abdomen Pelvis w and wo IV Contrast Guerrero Patel MD Referral ID Status Reason Start Date Expiration Date Visits Re quested Visits Authorized [id number] Closed 09/28/2020 03/27/2021 1 1 Encounter Details Date Type Department Care Team (Late st Contact Info) Description 09/09/2020 Orders Only [facility] [address] [place] [address] Guerrero Patel MD Acquired renal cystic disease [...] eGFR (Calc) >60 [place] Comment: NOTE: For -Citizen Of [place] individuals, multiply the result by 1.210. Chronic [...] ORDERABLES Final Res ult Performing Organization Address [facility]/State/ZIP Co de Phone Number [place] * [...] ORDERABLES Final Res ult Performing Organization Address [facility] de Phone Number [place] * Vitamin D 25 hydroxy (10/01/2020 1:59 PM EDT) Vitamin D, 25-Hydroxy 36.6 >30 ng/mL [facility] Comment: Health Based Reference Values* [...] ORDERABLES Final Res ult Performing Organization Address [facility] de Phone Number [place] * (ABNORMAL) CBC and differential (10/01/2020 1:59 PM EDT) WBC 8.8 4.8 - 10.8 X10*3/uL [place] RBC 5.01 4.60 - 5.80 X10*6/uL [place] Hgb 15.9 14.0 - 18.0 g/dl [place] Hematocrit 46.9 42 - 52 % [place] MCV 93.6 80 - 98 fL [place] MCH 31.7 27.0 - 33.0 pg [place] MCHC 33.9 31.0 - 36.0 g/dl [place] RDW 12.8 11.0 - 16.0 % [place] [...] Hypercalcemia documented in this encounter Care Teams Gunite Mixer Relationship Specialty Start Date End Date Nahid Webster MD [facility] [address] [place], [place] PCP - General 05/17/20 documented as of this encounter
--- OUTSIDE RECORDS SUMMARY | 2025-02-17 13:01 | XMS_ITS | Patient Health Record ---
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) Active confirmed Problem Chronic ulcer of foot (979683906) Non-pressure chronic ulcer of other part of left foot with fat layer exposed (L97.522) Active confirmed Problem Localized, primary osteoarthritis of the ankle and/or foot (665870911) Primary osteoarthrit is, right ankle and foot (M19.071) Active confirmed Problem Acquired hallux valgus (59107499) Hallux valgus (acquired), right foot (M20.11) Active confirmed Plan Of Treatment Pending Test Test Name Order Date X ray : Foot, left 3V 11/23/2021 X ray : Foot, right 3V 11/23/2021 X ray : Foot, right 3V 12/31/2019 [id number] SKIN/TISSUE 09/12/2021 X ray : Ankle, right 3V 10/06/2019 X ray : Ankle, right 3V 05/09/2021 X ray : Ankle, right 3V 11/23/2021 Insurance Providers Payer Name Payer Address Payer Phone Subscriber Number Group Number Insured Name Patient Relationship to Insured Coverage Start Date Coverage End Date [facility] 65 Medicare Preferred [address] [place] [address] [id number] Leif Kramer Self - patient is the insured Medical (General) History Medical History History ICD Code Back,Hip,and Knee pain Measles Mumps Chicken pox Surgical History Surgery Date(Month/Year) parathyroidectomy Xrays R Ankel ap/lat/lo 10/06/19
--- OUTSIDE RECORDS SUMMARY | 2025-02-17 13:01 | XMS_ITS | Clinical Summary ---
Author Organization [facility] Address [address] [address] Care Team Providers Care Hat Brim Curler Name Role Phone Nahid Webster MD Primary Care Provider +1- [phone] Active Problems Problem Noted Date Diagnosed Date [...] patient's age to complete this topic Insurance [facility] Care Teams Hat Brim Curler Relationship Specialty Start Date End Date Nahid Webster MD [facility] [address] [place], [place] PCP - General 05/17/20
== END 2025-02-17 11:30 | disposition home or self-care (01) ==
LOC: HO.HUSH 10:53
PROVIDERS: PCP Nurse Practitioner Family; Visit Provider Urology
DX: C61 Malignant neoplasm of prostate (principal); Z13.9 Encounter for screening, unspecified
CPT/HCPCS: 99214

== ENCOUNTER → 2025-02-17 10:52 | Outpatient (BNVA) | payer MEDICARE, SELFPAY | PROVIDERS: PCP Nurse Practitioner Family; Visit Provider Urology | DX: C61 Malignant neoplasm of prostate (principal) | CPT/HCPCS: 51798; 81003; 99212 ==

== ENCOUNTER 2025-02-24 10:05 | Outpatient (AMB) | payer MEDICARE, SELFPAY ==
[2025-02-24 10:12] VITALS: BP 114/62; PULSE 86; RESP 16; O2SAT 97; BMI 31.1
--- NOTE | 2025-02-24 10:12 | MHC.PC.OV ---
Vital Signs 02/24/25 10:12 Height 5 ft 11 in Weight 223 lb BMI 31.1 BP 114/62 Blood Pressure Location Lt brachial Position Sitting Respiration 16 Pulse 86 Pulse Source Pulse Oximeter Pulse Oximetry (%) 97 Oxygen Delivery Method Room Air Intake Visit Reasons: 6 months f/up Archival Records Clerk Required: No Accompanied by: Self / Same As Patient Allergies Sulfa (Sulfonamide Antibiotics) Allergy (Intermediate, Verified 02/24/25 10:35) rash Medication List - Last Reconciled 02/24/25 by ANA Chandler- aspirin (Adult Aspirin Regimen) 81 mg PO DAILY epinephrine (EpiPen 2-Ayo) 0.3 mg (0.3 mL) IM Q10M PRN finasteride 5 mg PO DAILY 90 days multivitamin 1 tab PO DAILY pravastatin 40 mg PO BEDTIME Tobacco use date assessed: 02/24/25 Fall risk assessment: No Falls in past year Last assessed Fall Risk: 02/24/25 Dental Screening Dental Screen Date: 02/24/25 Did you have a dental visit in the last 12 months?: Yes Did you have a dental problem in the last 6 months where you did not have access to dental care?: No Was dental information given to patient?: Patient has dentist HPI 6 months f/up HPI Details Chief Complaint The patient presents with increased shortness of breath, chest pain, dizziness, headaches, and blurred vision. History of Present Illness The patient is a 70-year-old male presenting with a follow-up visit. He has a history of aortic stenosis and is currently experiencing increased shortness of breath, chest pain, dizziness, headaches, and blurred vision. He is under the care of a family practice physician assistant for his aortic stenosis and has a systolic murmur. BP is stable The patient is due for a repeat low dose CT scan in April as part of lung cancer screening, which he has been encouraged to complete. He is a smoker and is currently not interested in quitting smoking. Social History - Tobacco use: Patient is a smoker and is not interested in quitting. Health Maintenance - Low dose CT scan for lung cancer screening scheduled for April. Review of Systems - Cardiovascular: Reports chest pain, dizziness. - Respiratory: Reports increased dyspnea. - Neurological: Reports headaches, blurred vision. Physical Exam General: Cooperative, healthy appearing, comfortable, no acute distress and well developed Orientation: Patient oriented x3 Limitations: No limitations Head: Normal to inspection Ears: Hearing grossly normal bilaterally Nose: Normal external nose present Face and sinus: Normal facial exam Eyes: Appearance normal, both eyes and all related structures Neck: Normal visual inspection and Yes full ROM Respiratory: Slightly diminished breath sounds bilaterally, able to speak in complete sentences Cardiovascular: Regular rate and rhythm. Systolic murmur present. Normal S1 and S2 GI: Normal to inspection. Soft to palpation and nontender Skin: No rashes or lesions noted Neuro: Patient oriented x3 Extremities: Normal to inspection Results Plan 1. Aortic Stenosis The patient is under cardiology care for aortic stenosis and presents with increased dyspnea, chest pain, dizziness, headaches, and blurred vision. Continued monitoring by cardiology is recommended. 2. Preventative Care: Low Dose Ct Scan For Lung Cancer Screening The patient is scheduled for a low dose CT scan in April for lung cancer screening. He has been encouraged to complete this screening. went over vaccinations the pt is due for. Discussion Notes I discussed with the patient the importance of following up with cardiology for his aortic stenosis and the need for a low dose CT scan for lung cancer screening in April. Patient Instructions - Follow up with cardiology as scheduled. - Complete the low dose CT scan for lung cancer screening in April. [facility] Medical History Seropositive rheumatoid arthritis Nicotine dependence, cigarettes, uncomplicated History of prostate cancer Hyperparathyroidism Vitamin D deficiency Adrenal adenoma Obesity (BMI 30.0-34.9) Liver cyst Renal cyst, left Dyslipidemia Primary hyperparathyroidism Adrenal nodule Hypercalcemia Surgical History Hx of prostate biopsy (02/2022) History of tonsillectomy History of parathyroidectomy History of esophagogastroduodenoscopy (EGD) (07/2022) History of colonoscopy (07/2022) Family History Brother Myocardial infarct Social History Housing: House Alcohol intake: current Alcohol intake frequency: 0-2 drinks per day Alcohol type: beer Patient Tobacco Use Status: Current everyday Tobacco user Tobacco use type: Cigarette Cigarettes Per Day: 10 Years Smoked: onset 14, 1ppd x 52yrs, 50PYH e-Cigarette/Vaping Use: Never Used Second Hand Smoke Exposure: Yes service: No Current occupational status: 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 1. Little interest or pleasure in doing things: not at all 2. Feeling down, depressed, or hopeless: not at all 3. Trouble falling or staying asleep, or sleeping too much: not at all 4. Feeling tired or having little energy: not at all 5. Poor appetite or overeating: not at all 6. Feeling bad about yourself - or that you are a failure or have let yourself or your family down: not at all 7. Trouble concentrating on things, such as reading the newspaper or watching television: not at all 8. Moving or speaking so slowly that other people could have noticed. Or the opposite - being so fidgety or restless that you have been moving around a lot more than usual: not at all 9. Thoughts that you would be better off or of hurting yourself in some way: not at all Total score: 0 Depression Screening Interpretation: Negative Depression Screening Done: Yes 97755 - PHQ-9 Billing: Yes Source: Developed by Drs. Rakesh Wray, Paula Ragland, Jeromy Mckeon and colleagues, with an educational emily from [employer]. Thrive Questionnaire Date Thrive assessed: 08/25/24 I am a: Patient What is your living situation today?: I choose not to answer this question Within the past 12 months, did the food you bought not last and you didn't have the money to get more?: I choose not to answer this question Within the past 12 months, did you worry whether your food would run out before you got money to buy more?: I choose not to answer this question Do you have trouble paying for medicines?: I choose not to answer this question Do you have trouble getting transportation to medical appointments?: I choose not to answer this question Do you have trouble paying your heating and electricity bill?: I choose not to answer this question Do you have trouble taking care of your child, family member or friend?: I choose not to answer this question Do you have trouble with day-to-day activities such as bathing, preparing meals, shopping, managing finances, etc.?: I choose not to answer this question Are you currently unemployed and looking for a job?: I choose not to answer this question Are you interested in more education?: I choose not to answer this question Please select the resources that you would like help with: None Currently or been in a relationship where the following occur: I choose not to answer THRIVE Score: 0 LUIS-7 AMB Questionnaire LUIS-7 Date LUIS - 7 assessed: 02/24/25 Feeling nervous, anxious, or on edge: 0 = Not at all Not being able to stop or control worryin = Not at all Worrying too much about different things: 0 = Not at all Trouble relaxin = Not at all Being so restless that it is hard to sit still: 0 = Not at all Becoming easily annoyed or irritable: 0 = Not at all Feeling afraid as if something awful might happen: 0 = Not at all Total LUIS-7 score (0-4 normal; 5-9 mild; 10-14 moderate; 15-21 severe): 0 Source: Developed by Drs. Rakesh Wray, Paula Ragland, Jeromy Mckeon and colleagues, with an educational emily from [employer]. LUIS-7 Assessment Billing LUIS-7 Assessment Tool: LUIS-7 Assessment 20530 Physical exam (Primary Care) Vital Signs: Last Vital Signs Pulse 86 02/24/25 10:12 Resp 16 02/24/25 10:12 BP 114/62 02/24/25 10:12 Pulse Ox 97 02/24/25 10:12 Oxygen Delivery Method Room Air 02/24/25 10:12 BMI result Body Mass Index 31.1 Tobacco/Smoking Status: Tobacco use Status Tobacco use date assessed 02/24/25 02/24/25 10:18 Patient Tobacco Use Status Current everyday Tobacco 02/24/25 10:18 Tobacco use type Cigarette 02/24/25 10:18 e-Cigarette/Vaping Use Never Used 02/24/25 10:18 PHQ-9: PHQ-9 Score PHQ-9: Total score 0 02/24/25 10:18 Depression Screening Interpretation: Negative Thrive Assessment: Date of Thrive Assessment Date Thrive assessed 08/25/24 02/24/25 10:18 Currently or been in a relationship where the following occur: I choose not to answer Coding Level of Care Code Est Pt Level 3 (95810) Diagnoses HTN (hypertension) I10 Vitamin D deficiency E55.9 Additional Codes LUIS-7 Assessment Billing - LUIS-7 Assessment Tool: LUIS-7 Assessment 02161 ([id number]) PHQ-9 - 25745 - PHQ-9 Billing: Yes ([id number]) Assessment & Plan Assessment & Plan (1) HTN (hypertension): Code(s): I10 - Essential (primary) hypertension Category: Medical (2) Vitamin D deficiency: Code(s): E55.9 - Vitamin D deficiency, unspecified Category: Medical Plan . Orders: Orders TSH reflex Free T4 Today I10 - Essential (primary) hypertension Vitamin D 25-OH Total Today E55.9 - Vitamin D deficiency, unspecified Complete Blood Count Auto Diff Today I10 - Essential (primary) hypertension Comprehensive Lane. Panel Fast Today I10 - Essential (primary) hypertension UA CC w/rflx Micro + Cult Today I10 - Essential (primary) hypertension Lipid Panel Today I10 - Essential (primary) hypertension
--- OUTSIDE RECORDS SUMMARY | 2025-02-24 11:52 | XMS_ITS | Encounter Summary ---
Author Organization [facility] Address [address] [facility] [address] [place] [address] Phone Care Team Providers Care Customer Care Voice Consultant Name Role Phone Nahid Webster MD Primary Care Provider +1- [phone] Reason for Referral * Imaging (Routine) - Closed Specialty Diagnoses / Procedures Referred By Ava gillis Referred To Contact Diagnoses Adrenal adenoma <Unspecified side> Procedures CT Abdomen Pelvis w and wo IV Contrast Guerrero Patel MD Referral ID Status Reason Start Date Expiration Date Visits Re quested Visits Authorized [id number] Closed 09/28/2020 03/27/2021 1 1 Encounter Details Date Type Department Care Team (Late st Contact Info) Description 09/09/2020 Orders Only [facility] [address] [place] [address] Guerrero Patel MD Acquired renal cystic disease [...] eGFR (Calc) >60 [place] Comment: NOTE: For -[place]ai[place]ese individuals, multiply the result by 1.210. Chronic [...] Final Res ult Performing Organization Address [facility]/State/ZIP Co de Phone Number [place] * Electrolyte [...] Final Res ult Performing Organization Address [facility] de Phone Number [place] * [...] Final Res ult Performing Organization Address [facility] de Phone Number [place] * (ABNORMAL) CBC and differential (10/01/2020 1:59 PM EDT) WBC 8.8 4.8 - 10.8 X10*3/uL [facility] RBC 5.01 4.60 - 5.80 X10*6/uL [facility] Hgb 15.9 14.0 - 18.0 g/dl [facility] Hematocrit 46.9 42 - 52 % [facility] MCV 93.6 80 - 98 fL [place] MCH 31.7 27.0 - 33.0 pg [facility] MCHC 33.9 31.0 - 36.0 g/dl [facility] RDW 12.8 11.0 - 16.0 % [place] [...] Hypercalcemia documented in this encounter Care Teams Customer Care Voice Consultant Relationship Specialty Start Date End Date Nahid Webster MD [facility] [address] [place], [place] PCP - General 05/17/20 documented as of this encounter
--- OUTSIDE RECORDS SUMMARY | 2025-02-24 11:52 | XMS_ITS | Patient Health Record ---
Author Organization [facility] Address [address] [facility] [address] Care Team Providers Care Geology Instructor Name Role Phone Everardo Bates Primary Care Provider Unav ailnicholas RussmimiJoni Unavailable [phone] Allergies Allergen (clinical drug ingredient) Drug/Non Drug [...] Status Risk Notes Problem Acquired hallux valgus (93401151) Hallux valgus (acquired), left foot (M20.12) Active confirmed Problem Non-pressure chronic ulcer of other part of right foot with fat layer exposed (L97.512) Active confirmed Problem Chronic ulcer of foot (931408856) Non-pressure chronic ulcer of other part of left foot with fat layer exposed (L97.522) Active confirmed Problem Localized, primary osteoarthritis of the ankle and/or foot (188350262) Primary osteoarthrit is, right ankle and foot (M19.071) Active confirmed Problem Acquired hallux valgus (72484826) Hallux valgus (acquired), right foot (M20.11) Active confirmed Plan Of Treatment Pending Test Test Name Order Date X ray : Foot, left 3V 11/23/2021 X ray : Foot, right 3V 11/23/2021 X ray : Foot, right 3V 12/31/2019 [id number] SKIN/TISSUE 09/12/2021 X ray : Ankle, right 3V 10/06/2019 X ray : Ankle, right 3V 05/09/2021 X ray : Ankle, right 3V 11/23/2021 Insurance Providers Payer Name Payer Address Payer Phone Subscriber Number Group Number Insured Name Patient Relationship to Insured Coverage Start Date Coverage End Date [facility] 65 Medicare Preferred [address] [place] [address] [id number] Leif Kramer Self - patient is the insured Medical (General) History Medical History History ICD Code Back,Hip,and Knee pain Measles Mumps Chicken pox Surgical History Surgery Date(Month/Year) parathyroidectomy Xrays R Ankel ap/lat/lo 10/06/19
--- OUTSIDE RECORDS SUMMARY | 2025-02-24 11:52 | XMS_ITS | Patient Health Record ---
Author Organization [facility] Address [address] [place] [address] Care Team Providers Care Books Binder Name Role Phone Nahid Webster M.D. Primary Care Provider Faye Angel Maldonado Jr Unavailable [phone] Allergies Allergen (clinical drug ingredient) Drug/Non Drug [...] Insured Coverage Start Date Coverage End Date [facility] PROF[employer]AL CLAIMS [address] [place] [address] [phone] [id number] Self - patient is the insured Medical (General) History Medical History History ICD Code Denies [place],DM,CVA,Lung disease,renal dise ase
--- OUTSIDE RECORDS SUMMARY | 2025-02-24 11:52 | XMS_ITS | Clinical Summary ---
Author Organization [facility] Address [address] [address] Care Team Providers Care Operations Support Analyst Name Role Phone Nahid Webster MD Primary Care Provider +1- [phone] Active Problems Problem Noted Date Diagnosed Date [...] [facility] Care Teams Operations Support Analyst Relationship Specialty Start Date End Date Nahid Webster MD [facility] [address] [place], [place] PCP - General 05/17/20
== END 2025-02-24 11:23 | disposition home or self-care (01) ==
LOC: HO.HMCC 10:06
PROVIDERS: PCP Nurse Practitioner Family; Visit Provider Nurse Practitioner Family
DX: I10 Essential (primary) hypertension (principal); E55.9 Vitamin D deficiency, unspecified

== ENCOUNTER → 2025-02-24 10:05 | Outpatient (BNVA) | payer MEDICARE, SELFPAY | PROVIDERS: PCP Nurse Practitioner Family; Visit Provider Nurse Practitioner Family | DX: I10 Essential (primary) hypertension (principal); E55.9 Vitamin D deficiency, unspecified; I35.0 Nonrheumatic aortic (valve) stenosis; Z13.31 Encounter for screening for depression; Z13.39 Encounter for screening examination for other mental health and behavioral disorders | CPT/HCPCS: 96127; 99212 ==

== ENCOUNTER 2025-03-11 06:41 | Outpatient (REF) | payer MEDICARE, SELFPAY ==
--- OUTSIDE RECORDS SUMMARY | 2025-03-11 06:43 | XMS_ITS | Patient Health Record ---
Author Organization [facility] Address [address] [place] [address] Care Team Providers Care Residential Construction Instructor Name Role Phone Nahid Webster M.D. Primary Care Provider Faye Angel Maldonado Jr Unavailable [phone] Allergies Allergen (clinical drug ingredient) Drug/Non [...] Insured Coverage Start Date Coverage End Date [facility] PROFESSIONAL CLAIMS [address] [place] [address] [phone] [id number] Self - patient is the insured Medical (General) History Medical History History ICD Code Denies [place],DM,CVA,Lung disease,renal dise ase
--- OUTSIDE RECORDS SUMMARY | 2025-03-11 06:43 | XMS_ITS | Clinical Summary ---
Author Organization [facility] Address [address] [address] Care Team Providers Care Gathering Machine Feeder Name Role Phone Nahid Webster MD Primary Care Provider +1- [phone] Active Problems Problem Noted Date Diagnosed Date [...] patient's age to complete this topic Insurance [facility] Care Teams Gathering Machine Feeder Relationship Specialty Start Date End Date Nahid Webster MD [facility] [address] [place], [place] PCP - General 05/17/20
--- OUTSIDE RECORDS SUMMARY | 2025-03-11 06:43 | XMS_ITS | Encounter Summary ---
Author Organization [facility] Address [address] [facility] [address] [place] [address] Phone Care Team Providers Care Yard Pipe Grader Name Role Phone Nahid Webster MD Primary Care Provider +1- [phone] Reason for Referral * Imaging (Routine) - Closed Specialty Diagnoses / Procedures Referred By Ava gillis Referred To Contact Diagnoses Adrenal adenoma <Unspecified side> Procedures CT Abdomen Pelvis w and wo IV Contrast Guerrero Patel MD Referral ID Status Reason Start Date Expiration Date Visits Re quested Visits Authorized [id number] Closed 09/28/2020 03/27/2021 1 1 Encounter Details Date Type Department Care Team (Late st Contact Info) Description 09/09/2020 Orders Only [facility] [address] [place] [address] Guerrero Patel MD Acquired renal cystic disease [...] eGFR (Calc) >60 [place] Comment: NOTE: For -Spanish individuals, multiply the result by 1.210. Chronic [...] ORDERABLES Final Res ult Performing Organization Address [facility]/State/ZIP Co de Phone Number [place] [...] ORDERABLES Final Res ult Performing Organization Address [facility] de Phone Number [place] * Vitamin D [...] ORDERABLES Final Res ult Performing Organization Address [facility] de Phone Number [place] * (ABNORMAL) CBC and differential (10/01/2020 1:59 PM EDT) WBC 8.8 4.8 - 10.8 X10*3/uL [facility] RBC 5.01 4.60 - 5.80 X10*6/uL [facility] Hgb 15.9 14.0 - 18.0 g/dl [facility] Hematocrit 46.9 42 - 52 % [facility] MCV 93.6 80 - 98 fL [place] MCH 31.7 27.0 - 33.0 pg [facility] MCHC 33.9 31.0 - 36.0 g/dl [facility] RDW 12.8 11.0 - 16.0 % [place] [...] PM EDT 10/01/2020 1:59 PM EDT Guerrero Paetl MD LAB BLOOD ORDERABLES Final Res ult [place] documented in this encounter Visit Diagnoses Diagnosis Acquired renal cystic disease- Primary Adrenal adenoma <Unspecified side> Hypercalcemia documented in this encounter Care Teams Yard Pipe Grader Relationship Specialty Start Date End Date Nahid Webster MD [facility] [address] [place], [place] PCP - General 05/17/20 documented as of this encounter
--- OUTSIDE RECORDS SUMMARY | 2025-03-11 06:43 | XMS_ITS | Patient Health Record ---
Author Organization [facility] Address [address] [place] [address] Care Team Providers Care Poolroom Table Attendant Name Role Phone Everardo Bates Primary Care Provider Unav ailnicholas RussmimiJoni Unavailable [phone] Allergies Allergen (clinical drug ingredient) Drug/Non Drug [...] Status Risk Notes Problem Acquired hallux valgus (59367917) Hallux valgus (acquired), left foot (M20.12) Active confirmed Problem Non-pressure chronic ulcer of other part of right foot with fat layer exposed (L97.512) Active confirmed Problem Chronic ulcer of foot (151561376) Non-pressure chronic ulcer of other part of left foot with fat layer exposed (L97.522) Active confirmed Problem Localized, primary osteoarthritis of the ankle and/or foot (961830134) Primary osteoarthrit is, right ankle and foot (M19.071) Active confirmed Problem Acquired hallux valgus (46231618) Hallux valgus (acquired), right foot (M20.11) Active confirmed Plan Of Treatment Pending Test Test Name Order Date X ray : Foot, left 3V 11/23/2021 X ray : Foot, right 3V 11/23/2021 X ray : Foot, right 3V 12/31/2019 [id number] SKIN/TISSUE 09/12/2021 X ray : Ankle, right 3V 10/06/2019 X ray : Ankle, right 3V 05/09/2021 X ray : Ankle, right 3V 11/23/2021 Insurance Providers Payer Name Payer Address Payer Phone Subscriber Number Group Number Insured Name Patient Relationship to Insured Coverage Start Date Coverage End Date [facility] 65 Medicare Preferred [address] [place] [address] [id number] Leif Kramer Self - patient is the insured Medical (General) History Medical History History ICD Code Back,Hip,and Knee pain Measles Mumps Chicken pox Surgical History Surgery Date(Month/Year) parathyroidectomy Xrays R Ankel ap/lat/lo 10/06/19
[2025-03-11 10:31] LABS: MANUAL DIFF FLAG NO
[2025-03-11 10:50] LABS: Hematocrit 46.5 % (42.0-52.0); Hemoglobin 15.6 g/dl (14.0-18.0); Imm Gran Abs Auto 0.03 X10*3/uL (0.00-0.03); Imm Gran Pct Auto 0.3 % (0.0-0.4); Lymphocytes Absolute Auto 3.6 X10*3/uL (1.2-4.9); Mean Corpuscular HGB Conc 33.5 g/dl (31.0-36.0); Mean Corpuscular Hemoglobin 31.3 pg (27.0-33.0); Mean Corpuscular Volume 93.4 fL (80.0-98.0); NRBC Abs Auto 0.000 X10*3/uL (0.0-0.012); NRBC Pct Auto 0.0 /100WBC (0.0-0.2); Platelet Count 265 X10*3/uL (160-400); Red Blood Count 4.98 X10*6/uL (4.60-5.80); White Blood Count 10.1 X10*3/uL (4.8-10.8)
[2025-03-11 11:15] LABS: Alanine Aminotransferase 21 U/L (0-40); Albumin Level 4.2 g/dL (3.5-5.0); Alkaline Phosphatase 73 U/L (39-117); Anion Gap 7 (12-20); Aspartate Amino Transferase 20 U/L (5-37); Blood Urea Nitrogen 15 mg/dL (9-16); Calcium 8.4 mg/dL (8.4-10.2); Carbon Dioxide 26 mmol/L (22-29); Chloride 110 mmol/L (96-108); Cholesterol 176 mg/dL (<200); Estimated Glomerular Filt Rate > 60; HDL Cholesterol 43 mg/dL (>40); Potassium 4.0 mmol/L (3.3-5.1); Sodium 139 mmol/L (135-145); Total Protein 7.3 g/dL (6.5-8.0); Triglycerides 118 mg/dL (<150)
== END 2025-03-11 06:42 | disposition home or self-care (01) ==
LOC: HO.HMGCLDS 06:41
PROVIDERS: PCP Nurse Practitioner Family; Visit Provider Nurse Practitioner Family
DX: I10 Essential (primary) hypertension (principal); E55.9 Vitamin D deficiency, unspecified
CPT/HCPCS: 36415; 80053; 80061; 82306; 84443; 85025